=== PATIENT | male | born 1980 | race Hispanic/Latino ===

== ENCOUNTER 2017-08-20 14:21 | Emergency (ER) | payer SELFPAY ==
[2017-08-20] MEDS ORDERED: Ketorolac Tromethamine 30 MG/ML VIAL ONE (15:19)
[2017-08-20] MEDS ORDERED: Dexamethasone 4 mg/ml Vial ONE (15:19)
[2017-08-20] MEDS ORDERED: Ondansetron HCl/PF 4 MG/2 ML Vial ONE (15:19)
[2017-08-20 15:27] LABS: #Basophils 0.1 thou/uL (0.0-0.2); #Eosinphils 0.1 thou/uL (0.0-0.7); #Lymphocytes 2.6 thou/uL (1.20-3.40); #Monocytes 0.6 thou/uL (0.11-0.59); #Neutrophils 8.8 thou/uL (1.40-6.50); %Basophils 0.8 % (0.0-1.0); %Eosinophils 0.9 % (0.0-10.0); %Lymphocytes 21.1 % (21.0-51.0); %Monocytes 4.9 % (0.0-10.0); Hematocrit 47.4 % (42.0-52.0); Mean Platelet Volume 6.6 fL (7.4-10.4); White Blood Cell (WBC) Count 12.2 thou/uL (4.8-10.8)
[2017-08-20 15:48] LABS: ALT (SGPT) 41 U/L (8-55); AST (SGOT) 16 U/L (5-34); Alkaline Phosphatase 67 U/L (40-150); Anion Gap 15 mmol/L (10-20); BUN (Urea Nitrogen) 13 mg/dL (8.9-20.6); Bilirubin, Total 0.4 mg/dL (0.2-1.2); Calc. Creatinine Clearance 0 mL/min (70-130); Calcium 9.9 mg/dL (7.8-10.44); Carbon Dioxide 24 mmol/L (22-29); Chloride 104 mmol/L (98-107); Estimated GFR-MDRD Greater than 90; Globulin 2.9 g/dL (2.4-3.5)
== END 2017-08-20 16:52 | disposition home or self-care (01) ==
LOC: ERS 14:21
DX: M54.5 Low back pain (principal); G89.29 Other chronic pain; I10 Essential (primary) hypertension; M19.90 Unspecified osteoarthritis, unspecified site; F41.9 Anxiety disorder, unspecified; F17.200 Nicotine dependence, unspecified, uncomplicated
CPT/HCPCS: 80053; 85025; 85652; 86140; 96361; 96374; 96375; J1100; J1885; J2270; J2405

== ENCOUNTER 2017-08-23 08:14 | Emergency (ER) | payer SELFPAY ==
[2017-08-23] MEDS ORDERED: Dexamethasone 4 mg/ml Vial ONE (09:25)
[2017-08-23] MEDS ORDERED: Ketorolac Tromethamine 60 MG/2 ML VIAL ONE (09:25)
[2017-08-23] MEDS ORDERED: HYDROcodone/Acetaminophen 5/325 mg Tablet ONE (09:59)
== END 2017-08-23 10:28 | disposition home or self-care (01) ==
LOC: ERS 08:14
DX: G89.29 Other chronic pain (principal); M54.5 Low back pain; I10 Essential (primary) hypertension; M16.12 Unilateral primary osteoarthritis, left hip; F41.9 Anxiety disorder, unspecified; F17.200 Nicotine dependence, unspecified, uncomplicated; Z79.899 Other long term (current) drug therapy
CPT/HCPCS: 96372; J1100; J1885

== ENCOUNTER 2017-08-23 14:19 | Emergency (ER) | payer SELFPAY ==
[2017-08-23] MEDS ORDERED: Lorazepam 2 MG/ML VIAL ONE (14:24)
[2017-08-23] MEDS ORDERED: Lorazepam 1 MG TAB ONE (15:05)
== END 2017-08-23 15:04 | disposition home or self-care (01) ==
LOC: ERS 14:19
DX: F41.9 Anxiety disorder, unspecified (principal); I10 Essential (primary) hypertension; F17.200 Nicotine dependence, unspecified, uncomplicated
CPT/HCPCS: 93005; 96374; J2060

== ENCOUNTER 2017-08-25 01:27 | Observation (INO) | payer SELFPAY ==
[2017-08-25] MEDS ORDERED: Ketorolac Tromethamine 30 MG/ML VIAL ONE (02:44)
[2017-08-25] MEDS ORDERED: diphenhydrAMINE HCl 50 MG/ML 1 ML VIAL ONE (02:44)
[2017-08-25] MEDS ORDERED: Metoclopramide HCl 10 MG/2 ML VIAL ONE (02:44)
[2017-08-25] MEDS ORDERED: Magnesium Sulfate 2 GM/100 ML BAG ONE (04:39)
[2017-08-25] MEDS ORDERED: methylPREDNISolone Sod Succ/PF 125 MG/2 ML VIAL ONE (04:39)
[2017-08-25] MEDS ORDERED: Water For Inject, Bacteriostat 30 ML ONE (04:40)
--- NOTE | 2017-08-25 06:26 | CT ---
PRELIMINARY REPORT/[facility]/EMERGENCY AFTER HOURS PROCEDURE: EXAM: CT Head Without Intravenous Contrast EXAM DATE/TIME: 08/25/2017 3:33 AM CLINICAL HISTORY: 37 years old, male; Pain; Headache; Headache not specified; Patient HX: SHAH TECHNIQUE: Axial computed tomography images of the head/brain without intravenous contrast. COMPARISON: No relevant prior studies available. FINDINGS: Brain: Unremarkable. No hemorrhage. No significant white matter disease. No edema. Ventricles: Unremarkable. No ventriculomegaly. Bones/joints: Unremarkable. No acute fracture. Soft tissues: Unremarkable. Sinuses: Unremarkable as visualized. No acute sinusitis. Mastoid air cells: Unremarkable as visualized. No mastoid effusion. Other findings: Mild patient motion. IMPRESSION: No acute intracranial abnormality. Thank you for allowing us to participate in the care of your patient. Dictated and Authenticated by: Jabari Madrid MD 08/25/2017 3:40 AM Central Time ([place] \T\ [place]) FINAL REPORT ON OVERNIGHT [facility] STUDY: I agree with the preliminary report provided. No acute intracranial abnormality demonstrated. Exam ination compared to a prior dated 03/07/2015. POS: [facility]
[2017-08-25 06:51] LABS: #Basophils 0.1 thou/uL (0.0-0.2); #Eosinphils 0.1 thou/uL (0.0-0.7); #Monocytes 0.8 thou/uL (0.11-0.59); #Neutrophils 10.8 thou/uL (1.40-6.50); %Basophils 0.7 % (0.0-1.0); %Eosinophils 0.8 % (0.0-10.0); %Lymphocytes 20.3 % (21.0-51.0); %Monocytes 5.6 % (0.0-10.0); Hematocrit 38.5 % (42.0-52.0); Mean Platelet Volume 7.1 fL (7.4-10.4); Red Blood Cell (RBC) Count 3.98 mill/uL (4.70-6.10); White Blood Cell (WBC) Count 14.8 thou/uL (4.8-10.8)
[2017-08-25] MEDS ORDERED: Sodium Chloride 0.9% 100 ML ONE (07:12)
[2017-08-25] MEDS ORDERED: cefTRIAXone\\ROCEPHIN 2 GM VIAL ONE (07:12)
[2017-08-25 07:13] LABS: Anion Gap 12 mmol/L (10-20); BUN (Urea Nitrogen) 18 mg/dL (8.9-20.6); Calc. Creatinine Clearance 0 mL/min (70-130); Calcium 8.5 mg/dL (7.8-10.44); Carbon Dioxide 23 mmol/L (22-29); Chloride 109 mmol/L (98-107); Estimated GFR-MDRD Greater than 90
[2017-08-25] MEDS ORDERED: Acetaminophen 500 MG TAB ONE (07:13)
[2017-08-25] MEDS ORDERED: ADMIXTURE FEE IVPB SCH (07:15)
[2017-08-25] MEDS ORDERED: VALPROATE SODIUM IVPB SCH (07:15)
[2017-08-25] MEDS ORDERED: SODIUM CHLORIDE IVPB SCH (07:15)
[2017-08-25] MEDS ORDERED: Ketorolac Tromethamine 30 MG/ML VIAL IVP PRN (09:13)
[2017-08-25] MEDS ORDERED: Ondansetron HCl/PF 4 MG/2 ML Vial IVP PRN (09:13)
[2017-08-25] MEDS ORDERED: Ondansetron ODT 4 MG TAB PO PRN ×2 (09:13→09:29)
[2017-08-25] MEDS ORDERED: Acetaminophen 325 MG TAB PO PRN ×2 (09:14→09:29)
[2017-08-25] MEDS ORDERED: Sodium Chloride 0.9% 1,000 ML IV SCH ×2 (09:15→09:30)
[2017-08-25 09:18] VITALS: BMI 36.6
[2017-08-25] MEDS ORDERED: traMADol HCl 50 MG TAB PO PRN (09:23)
[2017-08-25] MEDS ORDERED: Ketorolac Tromethamine 60 MG/2 ML VIAL IM PRN (09:29)
[2017-08-25] MEDS ORDERED: Zolpidem Tartrate 5 MG TAB PO PRN (09:29)
--- NOTE | 2017-08-25 10:04 | HP ---
PRIMARY CARE PROVIDER: Dr. Boykin at [facility]. Referred to [facility] for headache after a negative LP and CT scan of the brain. He adache has been less than 24 hours. He describes it as severe nuchal to frontal, throbbing, no feve r, chills, sweats, no visual disturbance, etc. PAST MEDICAL HISTORY: Hypertension. MEDICATIONS: Lisinopril 10 mg a day and tramadol 50 mg p.o. q. 6 hours for chronic back pain. ALLERGIES: None. PAST SURGICAL HISTORY: Back surgery two and a half months ago. FAMILY HISTORY: Mother and father alive with diabetes and hypertension, both. SOCIAL HISTORY: , smokes 1-2 cigarettes a day, occasional alcohol, no illicit drugs. REVIEW OF SYSTEMS: General: No weight loss, fainting, dizziness. Vision: No double vision, blurr ed vision, flashing lights. Ears, nose, and throat: No ear pain or drainage. No nasal bleeding. No trouble swallowing. Cardiovascular: No chest pain, orthopnea, or paroxysmal nocturnal dyspnea. Respiratory: No cough, wheezing, or asthma. Gastrointestinal: No nausea, vomiting, diarrhea, or constipation. Genitourinary: No hematuria, dysuria, or nocturia. Musculoskeletal: No pain or swe lling in his legs. He has chronic back pain. Neurologic: No strokes, seizures, or focal weakness. Psychiatric: No anxiety/depression issues by history. Skin: No bruises, bleeding, or rash. Hem e/Lymph: No tender or swollen lymph nodes in the axilla, inguinal, or cervical area. PHYSICAL EXAMINATION: GENERAL: He is alert, in no acute distress. VITAL SIGNS: Blood pressure 148/94, pulse 79, respirations 18, temperature 98.7. HEENT: Examination of his head, eyes, ears, nose, and throat reveals pupils equal, round, and react nikhil to light. Extraocular movements intact. Sclerae white. Tympanic membranes clear. Nose clear. Throat is clear. Dental hygiene is good. NECK: Supple, without jugular venous distention, adenopathy, or thyromegaly. CHEST: Clear to auscultation and percussion. HEART: Regular rate and rhythm. First and second heart sounds are clear. There are no murmurs, no gallops. ABDOMEN: Soft, bowel sounds are normal. There is no hepatosplenomegaly, no mass, no rebound, no br uits. EXTREMITIES: Reveal no cyanosis, clubbing, or edema. PULSES: Carotid, radial, femoral, and dorsalis pedis pulses intact. SKIN: Warm and dry without bruises or rash. HEME/LYMPH: Reveals no tender or swollen lymph nodes in the axilla, inguinal, or cervical area. NEUROLOGICAL: Cranial nerves II-XII are intact. Deep tendon reflexes symmetric. Moves all extremi ties. REPORTS: CT scan of the brain, no acute intracranial abnormality, reviewed by me. LABORATORY DATA: White count 14.8, hemoglobin 12.9, platelet count 300,000. Chemistries, basic met abolic profile normal except for glucose 123, chloride 109. CSF was colorless, clear. 1 white cell , 1 red cell. CSF glucose 80, CSF protein 37. ADMITTING DIAGNOSES: 1. What appears to be a classic tension headache with no neurological findings, normal CT, normal l umbar puncture except for 1 red cell and a minimally elevated glucose. We will place in the hospita l for IM Toradol and antiemetics as needed. 2. Hypertension. Continue home medicines. 3. Chronic back pain (this is the patient's 13th visit to our emergency room this year).
[2017-08-25 11:25] VITALS: BP 141/87; TEMP 98.4
[2017-08-25] MEDS ORDERED: FLU VACC QS2017-18 36 mo. & older 0.5 ML SYRINGE IM ONE (12:00)
--- NOTE | 2017-08-25 20:34 | DIS ---
DATE OF ADMISSION: 08/25/2017 DATE OF DISCHARGE: 08/25/2017 PRIMARY CARE PROVIDER: Dr. Boykin at [facility]. DISCHARGE DISPOSITION: Discharged to home. FINAL DIAGNOSES: Tension headache, hypertension, chronic back pain. DISCHARGE MEDICATIONS: Aleve 220 t.i.d. for headache, lisinopril 10 mg a day to continue his chroni c pain medicine, tramadol 50 mg p.o. q.6 hours for his back pain. ALLERGIES: No known drug allergies. PENDING AT THE TIME OF DISCHARGE: Cultures have been done on his CSF; however, with otherwise conrado l CSF that expected to be normal. CODE STATUS: FULL. HOSPITAL COURSE: Patient admitted with a frontal nuchal headache of approximately 12 hours duration with no associated neurological symptoms, etc. [facility] which revealed no hemorrhage, etc. He had an LP, which essentially had 1 neutrophil and 1 red ce ll, and 1 neutrophil and no red cells in the other. Cultures were sent. He was given a large numbe r of medicines in the emergency room including valproate, magnesium sulfate, methylprednisone, morph ine, Toradol, diphenhydramine, metoclopramide. He states none this affected his headache. When I s aw him, he had totally normal neurological exam. His laboratory did reveal mildly elevated white co unt of 14.8 without a left shift, hemoglobin 12.9, platelet count 300. Chemistries unremarkable. I placed the patient in the hospital at the request of the ED. Ordered Toradol and antiemetics this afternoon. The patient who is in absolutely no distress whatsoever says he is not any better, but rubi thapa wants to go home. I have discussed things with him. He needs to followup with his local doctor i n 7 days. Aleve three times a day as needed for headache.
[2017-08-26] MEDS ORDERED: Lisinopril 10 MG TAB PO SCH (09:00)
== END 2017-08-25 14:33 | disposition home or self-care (01) ==
LOC: ERS 01:27 → 2SW 07:26
PROVIDERS: ADMIT Internal Medicine; ATTEND Internal Medicine
DX: G44.209 Tension-type headache, unspecified, not intractable (principal); I10 Essential (primary) hypertension; M54.9 Dorsalgia, unspecified; G89.29 Other chronic pain; F17.210 Nicotine dependence, cigarettes, uncomplicated; Z79.899 Other long term (current) drug therapy; Z98.890 Other specified postprocedural states; Z83.3 Family history of diabetes mellitus; Z82.49 Family history of ischemic heart disease and other diseases of the circulatory system
CPT/HCPCS: 36415; 62270; 70450; 80048; 82945; 84157; 85025; 85652; 86140; 87070; 87205; 89051; 96361; 96365; 96367; 96375; 96376; G0378; J0696; J1200; J1885; J2270; J2765; J2930; J3475; J7050

== ENCOUNTER 2017-09-05 02:12 | Inpatient (IN) | payer SELFPAY ==
[2017-09-05 02:36] LABS: #Basophils 0.1 thou/uL (0.0-0.2); #Eosinphils 0.6 thou/uL (0.0-0.7); #Lymphocytes 3.5 thou/uL (1.20-3.40); #Monocytes 0.7 thou/uL (0.11-0.59); #Neutrophils 11.2 thou/uL (1.40-6.50); %Basophils 0.7 % (0.0-1.0); %Eosinophils 3.6 % (0.0-10.0); %Lymphocytes 21.5 % (21.0-51.0); %Monocytes 4.6 % (0.0-10.0); Hematocrit 41.3 % (42.0-52.0); Mean Platelet Volume 6.4 fL (7.4-10.4); Red Blood Cell (RBC) Count 4.33 mill/uL (4.70-6.10); White Blood Cell (WBC) Count 16.2 thou/uL (4.8-10.8)
[2017-09-05] MEDS ORDERED: methylPREDNISolone Sod Succ/PF 125 MG/2 ML VIAL ONE (02:54)
[2017-09-05] MEDS ORDERED: Water For Inject, Bacteriostat 30 ML ONE (02:54)
[2017-09-05] MEDS ORDERED: Nitroglycerin 2% Ointment 1 INCH/1 GM Packet ONE (02:54)
[2017-09-05 03:05] LABS: Troponin I Less than 0.010 ng/mL (< 0.028)
[2017-09-05 03:08] LABS: ALT (SGPT) 51 U/L (8-55); AST (SGOT) 17 U/L (5-34); Alkaline Phosphatase 125 U/L (40-150); Anion Gap 15 mmol/L (10-20); BUN (Urea Nitrogen) 15 mg/dL (8.9-20.6); Bilirubin, Total 0.2 mg/dL (0.2-1.2); Calc. Creatinine Clearance 0 mL/min (70-130); Calcium 10.2 mg/dL (7.8-10.44); Carbon Dioxide 26 mmol/L (22-29); Chloride 101 mmol/L (98-107); Estimated GFR-MDRD Greater than 90; Globulin 3.4 g/dL (2.4-3.5); Protein, Total 7.2 g/dL (6.0-8.3)
[2017-09-05 03:24] LABS: Lactic Acid - Sepsis 3.2 mmol/L (0.5-2.2)
[2017-09-05 03:26] LABS: PTT 25.5 SEC (22.9-36.1); Prothrombin Time 12.2 SEC (12.0-14.7)
[2017-09-05 03:36] LABS: Oxyhemoglobin 75.1 % (94.0-97.0); Sodium 139 mmol/L (135-148)
[2017-09-05 03:40] LABS: Mode RA; Modified Allen's Test POSITIVE; Vent NO
[2017-09-05] MEDS ORDERED: Albuterol Sulfate 2.5 mg/3 ml Neb ONE (04:00)
[2017-09-05] MEDS ORDERED: Fentanyl 100 MCG/2 ML VIAL ONE (04:07)
[2017-09-05] MEDS ORDERED: Enoxaparin Sodium 100 MG/ML SYRINGE ONE (04:18)
[2017-09-05] MEDS ORDERED: Enoxaparin Sodium 80 MG/0.8 ML SYRINGE ONE (04:20)
[2017-09-05] MEDS ORDERED: Enoxaparin Sodium 30 MG/0.3 ML SYRINGE ONE (04:20)
[2017-09-05] MEDS ORDERED: Enoxaparin Sodium 120 MG/0.8 ML SYRINGE SC SCH (04:45)
[2017-09-05] MEDS ORDERED: Magnesium Sulfate 2 GM/100 ML BAG ONE (04:57)
[2017-09-05] MEDS ORDERED: Sodium Chloride For Inhalation 0.9% 3 ML NEB ONE (05:05)
[2017-09-05] MEDS ORDERED: Acetaminophen 650 MG Suppository PR PRN (05:20)
[2017-09-05] MEDS ORDERED: Acetaminophen 325 MG TAB PO PRN (05:20)
[2017-09-05] MEDS ORDERED: Nitroglycerin 0.4 MG TAB (25 Tab Bottle) PO PRN (05:20)
--- NOTE | 2017-09-05 06:23 | HP ---
PRIMARY CARE PROVIDER: Jillian Boykin MD CHIEF COMPLAINT: Shortness of breath. HISTORY OF PRESENT ILLNESS: Mr. Saucedo is a pleasant 37-year-old gentleman who was seen at [facility] on 07/06/2017. He was hospitalized at this facility on 08/25/2017, for headache. He reports that he was doing well following discharge until 2 nights ago. His woke him up and told him that he was wheezing. He has no history of wheezing. Yesterday night, he developed chest pain. He describes pain as over the left side of the chest, sharp, 9-10/10, on and off, no known ag gravating or relieving factors, accompanied by diaphoresis. He denies any nausea or vomiting. He r eports ongoing shortness of breath. He denies any orthopnea. He denies any paroxysmal nocturnal dy spnea. He does not note the shortness of breath is worse with exertion. REVIEW OF SYSTEMS: The following complete review of systems was negative, unless otherwise mentione d in the HPI or below: Constitutional: Weight loss or gain, sense of well-being, ability to conduct usual activities, exer cise tolerance. Skin/Breast: Rash, itching, changes in hair growth or loss, nail changes, breast lumps, tenderness, swelling, nipple discharge. Eyes: Vision, double vision, tearing, blind spots, pain. ENT/Mouth: Headaches (location, time of onset, duration, precipitating factors), vertigo, lighthead edness, injury. Vision, double vision, tearing, blind spots, pain, nose bleeding, colds, obstruction , discharge, dental difficulties, gingival bleeding, dentures, neck stiffness, pain, tenderness, mas ses in thyroid or other areas. Cardiovascular: Precordial pain, substernal distress, palpitations, syncope, dyspnea on exertion, o rthopnea, nocturnal paroxysmal dyspnea, edema, cyanosis, hypertension, heart murmurs, varicosities, phlebitis, claudication. Respiratory: Pain, shortness of breath, wheezing, stridor, cough, hemoptysis, fever or night sweats . Gastrointestinal: Poor appetite, dysphagia, indigestion, abdominal pain, heartburn, eructation, samia sea, vomiting, hematemesis, jaundice, constipation, or diarrhea, abnormal stools (mario-colored, kartik y, bloody, greasy, foul smelling), flatulence, hemorrhoids, recent changes in bowel habits. Genitourinary: Urgency, frequency, dysuria, nocturia, hematuria, polyuria, oliguria, unusual (or ch sheri in) color of urine, stones, hesitancy, change in size of stream, dribbling, acute retention or incontinence, libido, potency. Musculoskeletal: Pain, swelling, redness or heat of muscles or joints, limitation, of motion, muscu lar weakness, atrophy, cramps. Neurologic/Psychiatric: Convulsions, paralyses, tremor, incoordination, paresthesias, difficulties with memory of speech, sensory or motor disturbances, or muscular coordination (ataxia, tremor), emo tional problems, anxiety, depression, previous psychiatric care, unusual perceptions, hallucinations . Allergy/Immunologic: Skin rash, anemia, bleeding tendency, polydipsia, polyuria, intolerance to hea t or cold. PAST MEDICAL HISTORY: Significant for hypertension, chronic back pain, left hip arthritis. PAST SURGICAL HISTORY: Significant for back surgery. PSYCHIATRIC HISTORY: Significant for anxiety. FAMILY HISTORY: No family history of premature coronary artery disease. SOCIAL HISTORY: Patient drinks alcohol occasionally. He smokes 2 to 5 cigarettes a day. He denies any recreational drug use. ALLERGIES: No known drug allergies. CURRENT MEDICATIONS: Lisinopril 10 mg daily. PHYSICAL EXAMINATION: GENERAL: On examination, Mr. Saucedo is awake and alert, in moderate distress. He is diaphoretic. VITAL SIGNS: Blood pressure is 137/93, pulse is 99, he is breathing at rate of 21, and saturating 9 7% on 2 liters of oxygen. He is afebrile. He is obese. EYES: No scleral icterus. No conjunctival pallor. ENT: Moist mucosal membranes, no oropharyngeal erythema or exudates. NECK: Supple, nontender, normal range of movement. Trachea is midline. RESPIRATORY: He has expiratory wheeze in the upper lung zones. He has markedly diminished air entr y into both lung bases. CARDIOVASCULAR: S1 and S2 are heard, regular. Peripheral pulses are palpable. No pericardial rub, no carotid bruit. ABDOMEN: Soft, nontender, bowel sounds heard, no hepatomegaly, no splenomegaly. MUSCULOSKELETAL: He has reproducible tenderness over the left lower chest wall. Power is 5/5 in al l 4 extremities. NEUROLOGIC: Cranial nerves II through XII intact, deep tendon reflexes are 2+. SKIN: Multiple tattoos present. PSYCHIATRIC: Patient appears anxious, oriented to person, place, and time. LYMPHATIC: No cervical lymphadenopathy. LABORATORY DATA AND DIAGNOSTICS: Mr. Saucedo's labs and investigations were reviewed. I have review ed his electrocardiogram, which shows normal sinus rhythm, no ST changes to suggest an acute coronar y syndrome. I have also reviewed his chest x-ray, which does not show any pulmonary infiltrates. Luis thapa also had a CT angiogram of the chest, which was reportedly negative for pulmonary embolism. Labor atory investigations show leukocytosis with 16,200 white cells, of which 69.4% are neutrophils, macr ocytic anemia with hemoglobin 13.8, elevated platelet count of 432,000, last month platelet count 30 0,000. On 08/25/2017, INR 0.9. Elevated glucose of 338, otherwise unremarkable comprehensive metab olic profile, normal troponin I, BNP of 12.6, and elevated lactate of 3.2. ASSESSMENT AND PLAN: Mr. Saucedo is a pleasant 37-year-old gentleman who was seen at [facility] on 09/05/2017. His problem list includes: 1. Chest pain: Etiology is unclear. There is certainly a reproducible component to his pain. How ever, he reports that his pain is worse than what is being reproduced. He will be admitted to the [facility] with presumptive diagnosis of unstable angina. He has already received a dose of Lovenox, w e will continue him on aspirin and Lovenox at 1 mg/kg subcutaneously every 12 hours. We will request 2D echocardiogram and Cardiology Service consultation, we will monitor on telemetry. 2. Acute respiratory failure: The patient is in acute respiratory failure, etiology is unclear. Luis thapa does not have a history of asthma or chronic obstructive pulmonary disease, although he does smoke . He has received steroids and bronchodilators in the emergency room with slight relief. We will c ontinue him on oxygen, steroids, and bronchodilators for suspected reactive airways disease. I will consult Pulmonology Service for their opinion and help with management. 3. Hypertension: Monitor vital signs, titrate antihypertensives as needed. 4. Leukocytosis: The patient does not appear to have any signs of infection in the chest. We will check urine. He has been afebrile, we will hold off on antibiotics for now. 5. Tobacco abuse: Patient has been counseled regarding tobacco cessation. We will start him on ni cotine replacement therapy. Many thanks for allowing me to participate in your patient's care. Please feel free to contact me w ith any questions or concerns. LEVEL OF RISK: High. LEVEL OF COMPLEXITY: High.
[2017-09-05 06:25] LABS: Troponin I Less than 0.010 ng/mL (< 0.028)
[2017-09-05 06:43] VITALS: BMI 36.7
[2017-09-05 07:46] LABS: Bilirubin Negative (Negative); Blood, Urine Negative (Negative); Glucose, Urine (Dipstick) >=1000 mg/dL (Negative); Ketone, Urine Negative (Negative); Nitrite Negative (Negative); Protein, Urine (Dipstick) Negative (Neg-Trace); Urobilinogen 0.2 mg/dL (0.2-1.0)
[2017-09-05 07:54] LABS: Amphetamine Not Detected (NotDetected); Methadone Not Detected (NotDetected); Methamphetamine Not Detected (NotDetected)
[2017-09-05] MEDS: Nicotine 14 MG PATCH TD SCH (08:04)
[2017-09-05] MEDS: Aspirin 325 MG TAB PO SCH (08:36)
[2017-09-05] MEDS: Lisinopril 10 MG TAB PO SCH (08:36)
[2017-09-05] MEDS: Morphine Sulfate 2 MG/ML SYRINGE SLOW IVP PRN ×3 (08:37→21:00)
[2017-09-05 09:34] LABS: Troponin I Less than 0.010 ng/mL (< 0.028)
--- NOTE | 2017-09-05 09:36 | RAD ---
SINGLE VIEW OF CHEST: Date: 09/05/17 COMPARISON: 08/10/17. HISTORY: Chest pain and difficulty breathing. FINDINGS: Single view of the chest shows a normal sized cardiomediastinal silhouette. There is no evidence of consolidation, mass, or pleural effusion. The bones are unremarkable. IMPRESSION: No evidence of acute cardiopulmonary disease. POS: [facility]
[2017-09-05] MEDS: Ketorolac Tromethamine 30 MG/ML VIAL IVP SCH (10:36)
--- NOTE | 2017-09-05 13:21 | CT ---
PRELIMINARY REPORT/[facility]/EMERGENCY AFTER HOURS PROCEDURE: EXAM: CT Angiography Chest With Intravenous Contrast EXAM DATE/TIME: Exam ordered 09/05/2017 3:22 AM CLINICAL HISTORY: 37 years old, male; Pain; Chest pain; Type not specified; Patient HX: R/O pe TECHNIQUE: Axial computed tomographic angiography images of the chest with intravenous contrast using pulmonary embolism protocol. CONTRAST: 100 mL of ISOVUE administered intravenously. COMPARISON: No relevant prior studies available. FINDINGS: Pulmonary arteries: Bolus timing is insufficient for definitive exclusion of small peripheral pulmon zita emboli, however no large central pulmonary emboli are identified. Aorta: No acute findings. No thoracic aortic aneurysm. Lungs: Normal. No mass. No consolidation. Pleural space: Normal. No significant effusion. No pneumothorax. Heart: Normal. No cardiomegaly. No significant pericardial effusion. No evidence of RV dysfunction. Mediastinum: The trachea is normal. Thyroid: The thyroid gland is normal. Bones/joints: No acute fracture. No dislocation. Soft tissues: Normal. Lymph nodes: Normal. No enlarged lymph nodes. Upper abdomen: The visualized intra-abdominal structures are normal. IMPRESSION: Bolus timing is insufficient for definitive exclusion of small peripheral pulmonary emboli, however no large central pulmonary emboli are identified. Thank you for allowing us to participate in the care of your patient. Dictated and Authenticated by: Gordon Menchaca MD 09/05/2017 3:58 AM Central Time ([place] \T\ [place]) FINAL REPORT EMERGENCY AFTER HOURS CTA OF CHEST WITH CONTRAST: Date: 09/05/17 TECHNIQUE: Multiple contiguous axial images were obtained in a CTA of the chest with contrast per pulmonary emb olism protocol. 3D oblique MIP reformats and direct coronal reformats were performed. FINDINGS/IMPRESSION: I agree with the findings and impression given in the preliminary report per [facility] physician. This ex am is limited secondary to poor timing of the contrast bolus. No central pulmonary emboli are seen. POS: [facility]
--- NOTE | 2017-09-05 14:23 | CON ---
DATE OF CONSULTATION: 09/05/2017 REASON FOR CONSULTATION: Chest pain. REFERRING PROVIDER: Dr. Bowman. HISTORY OF PRESENT ILLNESS: Mr. Saucedo is a 29-year-old gentleman with past medical history of hype rtension who recently presented with chest pain. States that chest pain began several weeks ago and begin as intermittent pain. It then became constant over the last 2 days. The pain is sharp and w orse with deep breath. It is positional with worse on his left side. He also states again it is go ing to reproduce by pressing in his left lower chest region. His EKG is negative for significant dy srhythmias or EKG changes suggesting ischemia. PAST MEDICAL HISTORY: As above. ALLERGIES: None. PAST SURGICAL HISTORY: Back surgery. SOCIAL HISTORY: Positive tobacco, positive alcohol use. MEDICATION: Lisinopril. REVIEW OF SYSTEMS: Ten-point review of systems is reviewed and is as above, negative. GENERAL: Negative fatigue, weakness, weight loss, fevers or chills. HEENT: Eyes: Negative blurry vision, double vision, loss of vision. Negative tinnitus, hearing loss , sore throat, bloody nose or drainage. PULMONARY: Negative shortness of breath, dyspnea on exertion, cough or congestion. CARDIOVASCULAR: Negative history of heart murmur, PND, orthopnea, fluttering or palpitations. GASTROINTESTINAL: Negative constipation, diarrhea, melena, hematochezia or abdominal pain. GENITOURINARY: Negative dysuria, polyuria, hematuria, difficulty starting/stopping flow. MUSCULOSKELETAL: Negative muscle aches/pains, joint pain, joint swelling. PVD: Negative claudication, calf or buttock pain, hair loss on limbs. NEUROLOGIC: Negative lightheadedness, dizziness, syncope, loss of sensation. PSYCHIATRIC: Negative depression, anxiety, panic attacks, or paranoia. ENDOCRINE: Negative hair loss, coarse skin or temperature intolerance. PHYSICAL EXAMINATION: VITAL SIGNS: Blood pressure 151/101, pulse 94, temperature 98.2. REVIEW OF SYSTEMS: GENERAL: Negative fatigue, weakness, weight loss, fevers or chills. HEENT: Eyes: Negative blurry vision, double vision, loss of vision. Negative tinnitus, hearing los s, sore throat, bloody nose or drainage. PULMONARY: Positive wheezing. CHEST: Positive pain to palpation noted to the left lower chest region. GASTROINTESTINAL: Negative constipation, diarrhea, melena, hematochezia or abdominal pain. GENITOURINARY: Negative dysuria, polyuria, hematuria, difficulty starting/stopping flow. MUSCULOSKELETAL: Negative muscle aches/pains, joint pain, joint swelling. PVD: Negative claudication, calf or buttock pain, hair loss on limbs. NEUROLOGIC: Negative lightheadedness, dizziness, syncope, loss of sensation. PSYCHIATRIC: Negative depression, anxiety, panic attacks, or paranoia. ENDOCRINE: Negative hair loss, coarse skin or temperature intolerance. PERTINENT LABORATORY DATA: Hemoglobin 13.8, CK and troponin negative. Creatinine 0.88. IMPRESSION: 1. Chest pain. 2. ? asthma. RECOMMENDATIONS: On asthma per Dr. Billings. Patient's symptoms from a cardiac standpoint appear po sitional and reproducible. This likely is secondary to musculoskeletal discomfort. He has been giv en one dose of Toradol. He states the only thing that improved his symptom is morphine. Would weston mmend nonsteroidal therapy. May consider a steroid Dosepak. We will review his echo for LV functio n if his LVEF is normal. His LVEF is normal with no significant issues. Would therefore recommend discontinuing home on a nonsteroidal therapy and PPI. If he needs to stay further per the primary t eam, would then recommend medical floor.
[2017-09-05] MEDS: Enoxaparin Sodium 120 MG/0.8 ML SYRINGE SC SCH (19:20)
--- NOTE | 2017-09-05 19:36 | CON ---
DATE OF CONSULTATION: 09/05/2017 SERVICE: Pulmonary Medicine. HISTORY OF PRESENT ILLNESS: Patient is a 37-year-old male with past medical history signif icant for hypertension and chronic pain who presented to the emergency department with some degree o f expiratory wheezing. He developed a little bit of chest discomfort. This is extraordinarily caron p sensation over the left side of his chest and it radiates into the right area, and around the lowe r part of the PEG. This is a severe pain that is exacerbated by a little bit of deep breathing. Pa lpation also makes it worse. There is no significant worsening in this discomfort associated with w alking. He denies any nausea, vomiting, diarrhea, shortness of breath, dyspnea on exertion. He did have a little bit of expiratory wheezing. This is new for him. Otherwise, he is in his usual stat e of health. He has had multiple presentations to the emergency department for different types of p ain related issues. PAST MEDICAL HISTORY: 1. Hypertension. 2. Chronic back pain. 3. Arthritis of the left hip. PAST SURGICAL HISTORY: Back surgery. SOCIAL HISTORY: He drinks alcohol occasionally. He smokes 1/4 pack on a daily basis and has a roug hly 5-10 pack year history of smoking. He denies any recreational drug use. He has no exposure to chemicals, asbestos or tuberculosis. FAMILY HISTORY: Noncontributory. ALLERGIES: No known drug allergies. MEDICATIONS: List of his inpatient medications was reviewed. No specific updates were made at this time. REVIEW OF SYSTEMS: General, head, ears, eyes, nose, throat, cardiovascular, respiratory, GI, , mus culoskeletal, neurologic and skin is negative except as mentioned in the HPI. PHYSICAL EXAMINATION: VITAL SIGNS: Afebrile, pulse 91, blood pressure 167/107, respirations 20, saturation 95% on 2 liter s nasal cannula. GENERAL: The patient is awake, alert, in no apparent distress. LUNGS: Decent air entry. There is no prolonged expiratory phase. There is a monophonic wheeze mildred t is identified. This is extraordinarily loud when placed over the larynx. It is only present on e xhalation. Throughout the rest of the lungs, there is that exact same tone and heeze heard througho ut. HEART: Normal rate. Regular. ABDOMEN: Soft, nontender, nondistended. Bowel sounds are positive. MUSCULOSKELETAL: No cyanosis or clubbing. There is no pitting in the bilateral lower extremities. NEUROLOGIC: Grossly nonfocal. LABORATORY DATA: WBC 16.2, hemoglobin 13.8, platelets 432,000. The differential is essentially nor mal. Absolute neutrophil count is elevated as is the lymphocyte and monocyte count. INR 0.9. PH 7 .43, pCO2 of 41, pO2 is 39, but my suspicion is that this likely represents a VBG. Glucose is 338. Lactic acid 3.2. Basic metabolic profile and liver function studies are otherwise unremarkable. C ardiac enzymes are negative x3. BNP is 12.6. Urinalysis is positive for glycosuria, but otherwise unremarkable. Urine drug screen is normal. IMAGING: Chest x-ray demonstrates no evidence of acute cardiopulmonary abnormality. There is a hig h riding right-sided hemidiaphragm with low lung volumes on the right. CTA of the chest demonstrate s no parenchymal abnormality of the lung. There is poor timing of the contrast bolus. As such, darnell ar evaluation of the pulmonary arteries is difficult, but I do not see any obvious filling deficit. The aorta is normal in caliber and size. There does not look to be any obvious dissection. I do n ot see any obvious chest wall abnormality in the area of concern. Official read is currently pendin g. ASSESSMENT: 1. Noncardiac chest pain. 2. Type 2 diabetes mellitus. 3. Systemic inflammatory response syndrome with no obvious evidence of infection. PLAN: Blood and urine cultures are currently pending. We will trend his CBC and basic metabolic pr ofile. At this point, I do not have clear reason for him to have this discomfort. Echocardiogram a nd Cardiology consultation are currently pending. Pulmonary Critical Care will continue to follow juan jose sánchez the patient remains in this location. He has already gotten full dose anticoagulation as well as aspirin therapy. The wheezing is transmitted breath sounds from the voice box and does not requi re therapy with nebulized medications.
[2017-09-05] MEDS ORDERED: FLU VACC QS2017-18 36 mo. & older 0.5 ML SYRINGE IM ONE (21:00)
[2017-09-06] MEDS: Ketorolac Tromethamine 30 MG/ML VIAL IVP SCH (00:06)
[2017-09-06] MEDS: Morphine Sulfate 2 MG/ML SYRINGE SLOW IVP PRN (03:58)
[2017-09-06 04:14] LABS: #Basophils 0.1 thou/uL (0.0-0.2); #Eosinphils 0.1 thou/uL (0.0-0.7); #Monocytes 0.9 thou/uL (0.11-0.59); #Neutrophils 13.7 thou/uL (1.40-6.50); %Basophils 0.4 % (0.0-1.0); %Eosinophils 0.4 % (0.0-10.0); %Monocytes 5.3 % (0.0-10.0); Hematocrit 38.5 % (42.0-52.0); Mean Platelet Volume 6.8 fL (7.4-10.4); Red Blood Cell (RBC) Count 3.96 mill/uL (4.70-6.10); White Blood Cell (WBC) Count 17.8 thou/uL (4.8-10.8)
[2017-09-06 04:34] LABS: Anion Gap 13 mmol/L (10-20); BUN (Urea Nitrogen) 14 mg/dL (8.9-20.6); Calc. Creatinine Clearance 229 mL/min (70-130); Calcium 9.2 mg/dL (7.8-10.44); Carbon Dioxide 27 mmol/L (22-29); Chloride 103 mmol/L (98-107); Estimated GFR-MDRD Greater than 90
[2017-09-06] MEDS: Nicotine 14 MG PATCH TD SCH (05:58)
[2017-09-06] MEDS: Enoxaparin Sodium 120 MG/0.8 ML SYRINGE SC SCH (06:00)
[2017-09-06] MEDS ORDERED: Insulin Regular 300 UNITS/3 ML VIAL SC PRN ×2 (07:08)
[2017-09-06] MEDS ORDERED: Dextrose 50% Abboject 50 ML SYRINGE SLOW IVP PRN (07:08)
[2017-09-06] MEDS ORDERED: Dextrose 5% in Water 1,000 ML IV PRN (07:08)
[2017-09-06] MEDS ORDERED: Ondansetron HCl/PF 4 MG/2 ML Vial IVP PRN (07:09)
[2017-09-06] MEDS ORDERED: Senokot 8.6 MG TAB PO PRN (07:09)
[2017-09-06 07:35] LABS: Hemoglobin A1c 6.7 % (4.0-6.0)
[2017-09-06 07:50] LABS: Magnesium 2.1 mg/dL (1.6-2.6); Phosphorus 3.7 mg/dL (2.3-4.7)
[2017-09-06] MEDS: Lisinopril 10 MG TAB PO SCH (08:10)
[2017-09-06] MEDS: Aspirin 325 MG TAB PO SCH (08:11)
[2017-09-06] MEDS: Ketorolac Tromethamine 30 MG/ML VIAL IVP PRN ×2 (08:50→16:59)
[2017-09-06] MEDS ORDERED: Famotidine 20 MG TAB PO SCH (09:00)
[2017-09-06] MEDS: traMADol HCl 50 MG TAB PO PRN ×3 (09:32→17:01)
[2017-09-06 10:05] VITALS: TEMP 98
--- NOTE | 2017-09-06 12:51 | PRG ---
DATE OF SERVICE: 09/06/2017 SERVICE: Pulmonary Medicine INTERVAL HISTORY: The patient is doing fine from a cardiovascular and respiratory standpoint. He d enies current shortness of breath, fevers, chills, nausea or vomiting. He continues to have that sh kelle episodic chest discomfort which is persistent with that intermittent exacerbations. Otherwise, there has been no interval change to his condition. PHYSICAL EXAMINATION: VITAL SIGNS: Afebrile, pulse 81, blood pressure 135/93, respirations 16, saturation 99% on room air . GENERAL: The patient is awake, alert, no apparent distress. LUNGS: Excellent air entry. No prolonged expiratory phase, wheezing, rhonchi or crackles. HEART: Normal rate, regular. ABDOMEN: Soft, nontender, nondistended. Bowel sounds positive. MUSCULOSKELETAL: No cyanosis or clubbing. No pitting in the bilateral lower extremities. NEUROLOGIC: Grossly nonfocal. LABORATORY DATA: WBC 17.8 and stable, hemoglobin 13.0, platelets 379,000. Neutrophil count is 77%, lymphocytes are dropping to 17%. Hemoglobin A1c 6.7, lactate has cleared to 1.6 and CRP is elevate d at 2.4. Basic metabolic profile is otherwise unremarkable. Blood cultures x2 and urine culture a re negative to date. ASSESSMENT: 1. Noncardiac chest pain. 2. Type 2 diabetes mellitus. 3. Systemic inflammatory response syndrome with no obvious evidence of infection. PLAN: The leukocytosis persists. This will need to be investigated on in or outpatient basis. The patient has no ongoing requirements for an inpatient Pulmonary Critical Care opinion. I will provi de him with a Lidoderm patch to see if this provides him with any local relief. If his condition de teriorates, please give me a phone call.
[2017-09-06] MEDS ORDERED: cloNIDine HCl 0.1 MG TAB PO SCH (17:45)
[2017-09-06 18:02] VITALS: BP 176/108
--- NOTE | 2017-09-06 18:54 | CON ---
DATE OF CONSULTATION: 09/06/2017 REASON FOR CONSULTATION: Neutrophilia. HISTORY OF PRESENT ILLNESS: A 37-year-old patient who has a history of hypertension and new onset o f labored breathing while sleeping, associated with wheezing. This occurred 2 days prior to admissi on, the first time the decided to lend her own inhaler to the patient who used it and got somew hat better. The next night, he developed recurrence of symptoms. This time they brought him to the emergency room. He did not have any reported fever, had some diaphoresis. No headaches, visual sy mptoms, sore throat, odynophagia, dysphagia. A little bit of chest pain in the anterior location, r adiating from the midsternal area towards the left nipple, sort of atypical and clearly related to d eep breathing. No abdominal pain, no diarrhea, no genitourinary symptoms, no joint symptoms. No ne urological symptoms. PAST MEDICAL HISTORY: Obesity, hypertension, lower back pain with prior laminectomy done by Dr. Luis Antonio Samano in [facility] and degenerative arthritis in the hips. PAST SURGICAL HISTORY: Laminectomy. FAMILY HISTORY: Noncontributory. SOCIAL HISTORY: He is unemployed and last time he worked was in October last year. 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 Still smoking about 2-10 cig arettes per day. No recreational drug use. ALLERGIES: None. MEDICATIONS: Receiving currently Tylenol, DuoNeb, Lovenox, insulin, Toradol, lisinopril, Nitrostat, tramadol. PHYSICAL EXAMINATION: VITAL SIGNS: Patient has been afebrile during the hospital stay. BP 130/90, pulse 81, respirations 18, O2 sat 97% on room air. He appears in no distress. SKIN: Normal, no lymphadenopathy. HEENT: Ocular movements are conjugate. Sclerae white. Oral cavity normal. Numerous teeth in plac e, fairly decent shape. NECK: Supple, no jugular distention, no thyromegaly. LUNGS: With symmetric clear breath sounds. HEART: S1, S2, regular rate. No S3 or S4. ABDOMEN: Soft, not distended or tender. No ascites. No bladder distention. GENITOURINARY: No genital abnormalities. EXTREMITIES: Pulses are 1+ in popliteal and dorsalis pedis. No edema. NEUROLOGIC: Plantar responses are flexor. Strength in all extremities is preserved. Cognitive fun ction appears to be intact. LABORATORY DATA: The white cell count is 16,000, up to 17.8, hemoglobin 13, platelets 379 and neutr ophils 77%. Total neutrophil count 13.7, INR 0.9, pH 7.4, pCO2 41, pO2 39, this is a venous sample. Chemistry with fairly unremarkable except for hyperglycemia. The patient was not aware that he aguirre s diabetes. CRP 2.4. Liver profile normal. Albumin 3.8. Troponin has been normal. BNP 12.6. Ur inalysis with greater than 1000 glucose. Toxicology was negative. Beta hydroxybutyrate 0.06. The patient had Pulmonary and Cardiology consultation and the impression was asthma. He did not fee l that there was any indication for further cardiological evaluation. Echo was fairly normal. CT a ngio without evidence of pulmonary embolism. ASSESSMENT: Wheezing bronchospasm with nighttime dyspnea. Normal cardiac evaluation and neutrophil ia. DISCUSSION: The most likely scenario here is hyperadrenergic response due to the pulmonary decompen sation with bronchospasm. Possibility of endocrinological causes including carcinoid, hyperthyroidi sm and hypercortisolism will be evaluated, no evidence to suggest an infectious process at this time .
--- NOTE | 2017-09-06 19:12 | DIS ---
DATE OF DISCHARGE: 09/06/2017 DISCHARGE DISPOSITION: Home. FOLLOWUP: 1. Follow up with primary care physician Dr. Boykin at [facility]. 2. Follow up with Dr. Salazar, Cardiology and Pulmonary, Dr. Billings as needed. ALLERGIES: No known drug allergies. DISCHARGE MEDICATIONS: 1. Clonidine as needed for elevated blood pressure more than 180. 2. Glipizide 5 mg daily (new medication). 3. Lisinopril 10 mg daily. 4. Pepcid 20 mg b.i.d. for next 2 weeks. 5. Tylenol as needed. INPATIENT CONSULTANTS: 1. Cardiology, Dr. Salazar. 2. Pulmonary, Dr. Billings. The patient was seen and examined on the day of discharge. He denies any new complaints, no chest p ain, shortness of breath or palpitations. The patient is ambulating in the hallway. He was licensed professional counselor ed by the dietitian as well. BRIEF HOSPITAL COURSE: The patient is a 37-year-old male with hypertension, who [facility] with shortness of breath. Please refer to the history and physical for further details. The patient was admitted to the hospital with the diagnosis of chest pain of unclear etiology. Seri al cardiac enzymes were normal. An echocardiogram showed left ventricular ejection fraction of 55% to 60% with mild mitral and tricuspid regurgitation. The patient was seen by Cardiology, Dr. Estevan patel. Per Cardiology, his chest pain is probably musculoskeletal discomfort. He received Toradol. On admission, patient also complained of some shortness of breath along with expiratory wheezing. H is O2 sat were in the normal range. His symptoms gradually improved without any nebulizer treatment s. On admission, patient had WBC of 16.2 without left shift along with lactic acid of 3.2. This was pr obably secondary to dehydration from hyperglycemia. He was diagnosed with new onset diabetes. He h as been counseled on diabetes. He was also evaluated by Infectious Disease, Dr. Stafford. SIGNIFICANT LABORATORY DATA: 1. Hemoglobin A1c 6.7. 2. Lactic acid on admission 3.2, at discharge 1.6. 3. Blood cultures and urine cultures have been negative. 4. CT angiogram of the chest on admission was negative for pulmonary embolism. 5. Echocardiogram as discussed above. FINAL DIAGNOSES: 1. Noncardiac chest pain. 2. Shortness of breath with wheezing of unclear etiology. 3. New diagnosis of diabetes mellitus type 2, started on Glipizide. 4. Systemic inflammatory response syndrome without any obvious evidence of infection. 5. Hypertension. 6. Chronic back pain. 7. Obesity with a BMI of 36.8. 8. Chronic anemia, macrocytic. 9. Dehydration, probably secondary to polyuria from diabetes. Plan of care was discussed with the patient. He stated understanding.
[2017-09-06] MEDS ORDERED: Enoxaparin Sodium 40 MG/0.4 ML SYRINGE SC SCH (21:00)
[2017-09-07] MEDS ORDERED: Lidocaine 5% Patch TD SCH (09:00)
[2017-09-07] MEDS ORDERED: Lidocaine Patch Removal TOP SCH (21:00)
== END 2017-09-06 18:27 | disposition home or self-care (01) | DRG 313 ==
LOC: ERS 02:12 → IMCU/EMU 06:30 → ONC 19:38
PROVIDERS: ADMIT Internal Medicine; ATTEND Internal Medicine
DX: R07.89 Other chest pain (principal); R65.10 Systemic inflammatory response syndrome (SIRS) of non-infectious origin without acute organ dysfunction; I10 Essential (primary) hypertension; E86.0 Dehydration; D72.829 Elevated white blood cell count, unspecified; E66.9 Obesity, unspecified; D53.9 Nutritional anemia, unspecified; M54.9 Dorsalgia, unspecified; G89.29 Other chronic pain; E11.65 Type 2 diabetes mellitus with hyperglycemia; F17.210 Nicotine dependence, cigarettes, uncomplicated; Z68.36 Body mass index [BMI] 36.0-36.9, adult; Z79.899 Other long term (current) drug therapy
CPT/HCPCS: 36415; 36416; 71010; 71275; 80048; 80053; 80306; 81003; 82010; 82553; 82805; 83036; 83605; 83735; 83880; 84100; 84443; 84484; 85025; 85610; 85730; 86140; 87040; 87086; 90471; 90682; 93005; 93306; 94640; 94760; 96361; 96365; 96367; 96372; 96375; A4216; G0008; J1650; J1885; J1956; J2270; J2930; J3010; J3475; J7611; J7620; Q2036

== ENCOUNTER 2017-09-10 03:29 | Emergency (ER) | payer SELFPAY ==
[2017-09-10] MEDS ORDERED: HYDROcodone/Acetaminophen 10/325 mg Tablet ONE (04:05)
[2017-09-10] MEDS ORDERED: Diazepam 5 MG TAB ONE (04:05)
== END 2017-09-10 04:28 | disposition home or self-care (01) ==
LOC: ERS 03:29
DX: M54.5 Low back pain (principal); I10 Essential (primary) hypertension; M16.12 Unilateral primary osteoarthritis, left hip; F41.9 Anxiety disorder, unspecified; F17.210 Nicotine dependence, cigarettes, uncomplicated; Z79.899 Other long term (current) drug therapy
CPT/HCPCS: 99283

== ENCOUNTER 2017-09-12 07:24 | Observation (INO) | payer SELFPAY ==
[~2017-09-12 07:24] MED LIST: ADENOSINE 60 MG/20 ML VIAL ONE
[2017-09-12 08:10] LABS: #Basophils 0.1 thou/uL (0.0-0.2); #Eosinphils 0.1 thou/uL (0.0-0.7); #Lymphocytes 3.8 thou/uL (1.20-3.40); #Monocytes 0.7 thou/uL (0.11-0.59); #Neutrophils 6.8 thou/uL (1.40-6.50); %Basophils 0.7 % (0.0-1.0); %Eosinophils 1.2 % (0.0-10.0); %Monocytes 5.9 % (0.0-10.0); Hematocrit 45.3 % (42.0-52.0); Mean Platelet Volume 6.7 fL (7.4-10.4); Red Blood Cell (RBC) Count 4.77 mill/uL (4.70-6.10); White Blood Cell (WBC) Count 11.5 thou/uL (4.8-10.8)
[2017-09-12 08:28] LABS: ALT (SGPT) 31 U/L (8-55); AST (SGOT) 14 U/L (5-34); Alkaline Phosphatase 85 U/L (40-150); Anion Gap 16 mmol/L (10-20); BUN (Urea Nitrogen) 15 mg/dL (8.9-20.6); Bilirubin, Total 0.4 mg/dL (0.2-1.2); CK (CPK) 37 U/L (30-200); Calc. Creatinine Clearance 0 mL/min (70-130); Calcium 9.8 mg/dL (7.8-10.44); Carbon Dioxide 23 mmol/L (22-29); Chloride 106 mmol/L (98-107); Estimated GFR-MDRD Greater than 90; Globulin 3.5 g/dL (2.4-3.5); Lipase 10 U/L (8-78); Protein, Total 7.6 g/dL (6.0-8.3)
[2017-09-12 08:32] LABS: Troponin I Less than 0.010 ng/mL (< 0.028)
--- NOTE | 2017-09-12 09:12 | RAD ---
CHEST 1 VIEW: HISTORY: Chest pain. COMPARISON: Chest 1 view 09/06/17. FINDINGS: Lungs are hypoinflated. No pneumothorax or effusion. Cardiac silhouette and mediastinal contour is similar. IMPRESSION: No acute intrathoracic abnormality. No significant change. POS: [facility]
[2017-09-12] MEDS ORDERED: Nitroglycerin 2% Ointment 1 INCH/1 GM Packet ONE (09:19)
[2017-09-12] MEDS ORDERED: Morphine 2 MG/ML SYRINGE ONE (09:39)
[2017-09-12] MEDS ORDERED: Nitroglycerin 0.4 MG TAB (25 Tab Bottle) PO PRN (09:46)
[2017-09-12] MEDS ORDERED: Acetaminophen 325 MG TAB PO PRN (09:46)
[2017-09-12] MEDS ORDERED: HumaLOG 300 UNITS/3 ML VIAL SC PRN (09:50)
[2017-09-12] MEDS ORDERED: Dextrose 5% in Water 1,000 ML IV PRN (09:50)
[2017-09-12] MEDS ORDERED: Dextrose 50% Abboject 50 ML SYRINGE SLOW IVP PRN (09:50)
[2017-09-12] MEDS ORDERED: Nicotine 14 MG PATCH TD SCH (10:00)
--- NOTE | 2017-09-12 10:42 | HP ---
PRIMARY CARE PHYSICIAN: Jillian Boykin M.D. CHIEF COMPLAINT: Chest pain. HISTORY OF PRESENT ILLNESS: Mr. Saucedo is a pleasant 37-year-old gentleman who was seen at [facility] on 09/12/2017. He was admitted to this facility from 09/05/2017- 7 of this year for chest pain, which was deemed to be noncardiac. He reports that he did not have a ny chest pain at the time of discharge. He reports feeling well until today morning. Today morning , he woke up with right-sided chest pain. He reports that it was constant, sharp, 10/10. No known aggravating or relieving factors, accompanied by diaphoresis. He also reports vomiting once. He al so reports that the pain has now migrated to his right upper quadrant and continues to be in the adi st as well. He denies any cough, fevers or chills. The following complete review of systems was negative, unless otherwise mentioned in the HPI or belo w: Constitutional: Weight loss or gain, sense of well-being, ability to conduct usual activities, exer cise tolerance. Skin/Breast: Rash, itching, changes in hair growth or loss, nail changes, breast lumps, tenderness, swelling, nipple discharge. Eyes: Vision, double vision, tearing, blind spots, pain. ENT/Mouth: Headaches (location, time of onset, duration, precipitating factors), vertigo, lighthead edness, injury. Vision, double vision, tearing, blind spots, pain, nose bleeding, colds, obstruction , discharge, dental difficulties, gingival bleeding, dentures, neck stiffness, pain, tenderness, mas ses in thyroid or other areas. Cardiovascular: Precordial pain, substernal distress, palpitations, syncope, dyspnea on exertion, o rthopnea, nocturnal paroxysmal dyspnea, edema, cyanosis, hypertension, heart murmurs, varicosities, phlebitis, claudication. Respiratory: Pain, shortness of breath, wheezing, stridor, cough, hemoptysis, fever or night sweats . Gastrointestinal: Poor appetite, dysphagia, indigestion, abdominal pain, heartburn, eructation, samia sea, vomiting, hematemesis, jaundice, constipation, or diarrhea, abnormal stools (mario-colored, kartik y, bloody, greasy, foul smelling), flatulence, hemorrhoids, recent changes in bowel habits. Genitourinary: Urgency, frequency, dysuria, nocturia, hematuria, polyuria, oliguria, unusual (or ch sheri in) color of urine, stones, hesitancy, change in size of stream, dribbling, acute retention or incontinence, libido, potency. Musculoskeletal: Pain, swelling, redness or heat of muscles or joints, limitation, of motion, muscu lar weakness, atrophy, cramps. Neurologic/Psychiatric: Convulsions, paralyses, tremor, incoordination, paraesthesias, difficulties with memory of speech, sensory or motor disturbances, or muscular coordination (ataxia, tremor), em otional problems, anxiety, depression, previous psychiatric care, unusual perceptions, hallucination s. Allergy/Immunologic: Skin rash, anemia, bleeding tendency, polydipsia, polyuria, intolerance to hea t or cold. PAST MEDICAL HISTORY: Significant for diabetes mellitus diagnosed during last hospitalization, hype rtension, chronic back pain, left hip arthritis, left ventricle ejection fraction of 55%-60% on 08/22. CT angiogram of the chest which did not reveal any central pulmonary embolism on 09/05/2017 . PAST SURGICAL HISTORY: Significant for back surgery. PSYCHIATRIC HISTORY: Significant for anxiety. FAMILY HISTORY: No family history of premature coronary artery disease. SOCIAL HISTORY: The patient drinks alcohol occasionally, denies recreational drug use. Smokes 2-5 cigarettes a day. ALLERGIES: No known drug allergies. CURRENT MEDICATIONS: Amlodipine 5 mg daily and glipizide 5 mg daily. PHYSICAL EXAMINATION: GENERAL: On examination, Mr. Saucedo is awake and alert, not in acute distress. VITAL SIGNS: Blood pressure is 136/80, pulse is 91, his breathing at rate of 19 and saturating 97% on room air. He is afebrile. He is obese. EYES: No scleral icterus. No conjunctival pallor. ENT: Moist mucosal membranes, no oropharyngeal erythema or exudates. NECK: Supple, nontender, normal range of movement, trachea is midline. RESPIRATORY: Accessory muscles of breathing are not active. Chest wall movements are symmetric endy aterally. LUNGS: Clear to auscultation without wheeze, rhonchi or crepitations. CARDIOVASCULAR: S1 and S2 are heard, regular. LUNGS: Peripheral pulses are palpable. No carotid bruit, no pericardial rub. ABDOMEN: Soft, mild right upper quadrant tenderness, no guarding or rigidity, bowel sounds are hear d, no hepatomegaly, no splenomegaly. NEUROLOGIC: Cranial nerves II-XII intact. Deep tendon reflexes are 2+. MUSCULOSKELETAL: Power is 5/5 in all 4 extremities. He has reproducible tenderness over the right chest wall. LYMPHATIC: No cervical lymphadenopathy. SKIN: No rashes or subcutaneous nodules. PSYCHIATRIC: The patient appears anxious, oriented to person, place, and time. IMAGING AND LABORATORY DATA: Mr. Saucedo's labs and investigations were reviewed. I reviewed his el ectrocardiogram, which shows normal sinus rhythm, no ST changes to suggest an acute coronary syndrom e. I also reviewed his chest x-ray, which does not show any pulmonary infiltrates. Laboratory inve stigation show leukocytosis with 11,500 white cells, of which 59.3% are neutrophils, normal hemoglob in, elevated platelet count of 551,000, last known platelet count 379,000 on 09/06/2017, unremarkabl e comprehensive metabolic profile and normal troponin I. Lipase is normal. ASSESSMENT AND PLAN: Mr. Saucedo is a pleasant 37-year-old gentleman who was seen at [facility] on 09/12/2017. His problem list includes: 1. Chest pain: Etiology unclear, at least a component of musculoskeletal pain. However, given his cardiac risk factors, we will need to rule out ischemic heart disease as a cause of his chest pain. We will check stress test. D-dimer is pending. Will repeat cardiac enzymes and monitor on teleme try observation status. 2. Abdominal pain: Patient has right upper quadrant pain. Liver function tests are normal. Daryl y sign is negative. We will obtain right upper quadrant ultrasound to evaluate any hepatobiliary pa thology. 3. Diabetes mellitus: Continue home medications, start insulin sliding scale. 4. Hypertension: Continue home medications, monitor vital signs and titrate antihypertensives as n eeded. 5. Tobacco use: The patient has been counseled regarding tobacco cessation. Start nicotine replac ement therapy. 6. Thrombocythemia: Etiology unclear. He appears to have had at least one episode of thrombocythe bina in the past. I will recheck platelet count in the morning. Many thanks for allowing me to participate in your patient's care. Please feel free to contact me w ith any questions or concerns. LEVEL OF RISK: High. LEVEL OF COMPLEXITY: High.
[2017-09-12] MEDS: Morphine 2 MG/ML SYRINGE SLOW IVP PRN ×3 (11:27→21:27)
[2017-09-12 11:39] VITALS: BMI 35.0
[2017-09-12 11:47] LABS: Troponin I Less than 0.010 ng/mL (< 0.028)
--- NOTE | 2017-09-12 11:49 | ULT ---
ULTRASOUND ABDOMEN: HISTORY: Right upper quadrant pain. COMPARISON: None. FINDINGS: Real-time, shabazz scale, color Doppler, and spectral analysis of the abdomen was performed with a curv ilinear transducer. The hepatic echotexture is slightly increased and coarsened. The portal vein is patent. Antegrade flow. Visualized portion of the pancreatic body is unremarkable. The aorta is poorly visualized, although appears unremarkable. Liver measures 17.8 cm in length. Portal vein is patent. Antegrade flow. Gallbladder wall thickne ss is less than 3 mm. There appears to be some adenomyomatosis of the gallbladder. The right kidney measures 12 x 6.4 x 6.2 cm without mass, hydronephrosis, or abnormal calcifications . Common bile duct measures less than 6 mm. The left kidney measures 13.5 x 7 6.5 cm without mass, hydronephrosis, or abnormal calcifications. The spleen measures just under 11 cm in length. IMPRESSION: 1. Increased hepatic echotexture to suggest steatosis. 2. Gallbladder adenomyomatosis. 3. No acute abnormality. POS: [facility]
[2017-09-12] MEDS ORDERED: Iopamidol 370 76% 100 ML VIAL ONE (14:56)
[2017-09-12] MEDS ORDERED: ADENOSINE 60 MG/20 ML VIAL ONE (15:12)
[2017-09-12] MEDS ORDERED: Ketorolac Tromethamine 30 MG/ML VIAL IVP PRN (15:40)
--- NOTE | 2017-09-12 15:44 | NM ---
NUCLEAR MEDICINE CARDIAC STRESS TEST WITH EJECTION FRACTION: HISTORY: Chest pain, diabetes, hypertension, high cholesterol. COMPARISON: None. TECHNIQUE: Stress and rest was performed after the intravenous administration of 29.4 and 10.5 mCi Technetium 9 9m sestamibi intravenously. Exam was performed using nuclear adenosine stress protocol. The EKG stress was normal. FINDINGS: No scar or reversible ischemia. The ejection fraction is calculated at 57%. Normal wall motion. IMPRESSION: No evidence of scar or ischemia. Ejection fraction 57%. No dyskinesia. POS: [facility]
[2017-09-12] MEDS ORDERED: Ketorolac Tromethamine 30 MG/ML VIAL IVP SCH (16:00)
[2017-09-12 16:23] LABS: Troponin I Less than 0.010 ng/mL (< 0.028)
--- NOTE | 2017-09-12 16:35 | CT ---
CT ANGIO CHEST PERFORMED WITH INTRAVENOUS CONTRAST ENHANCEMENT WITH 3D RECONSTRUCTIONS: History: Shortness of breath. Comparison: 09-05-17 FINDINGS: The lungs are clear of any infiltrative process. No pulmonary nodules or pleural effusions. The thoracic aorta is normal in caliber. There is good pulmonary artery opacification, there is no CT evidence for pulmonary embolus. Visualized liver parenchyma is unremarkable. Right and left adrenal glands are normal. CA No CT evidence of pulmonary embolus. POS: [facility]
[2017-09-12] MEDS ORDERED: Fentanyl 100 MCG/2 ML VIAL SLOW IVP SCH (17:45)
[2017-09-12 23:01] LABS: Amphetamine Not Detected (NotDetected); Methadone Not Detected (NotDetected); Methamphetamine Not Detected (NotDetected)
[2017-09-13] MEDS: traMADol HCl 50 MG TAB PO PRN ×2 (00:59→08:03)
[2017-09-13 04:25] LABS: #Basophils 0.1 thou/uL (0.0-0.2); #Eosinphils 0.2 thou/uL (0.0-0.7); #Monocytes 0.7 thou/uL (0.11-0.59); #Neutrophils 5.8 thou/uL (1.40-6.50); %Basophils 1.3 % (0.0-1.0); %Eosinophils 2.2 % (0.0-10.0); %Lymphocytes 36.6 % (21.0-51.0); %Monocytes 6.4 % (0.0-10.0); Mean Platelet Volume 6.3 fL (7.4-10.4); Red Blood Cell (RBC) Count 4.81 mill/uL (4.70-6.10); White Blood Cell (WBC) Count 10.9 thou/uL (4.8-10.8)
[2017-09-13 05:00] LABS: Anion Gap 11 mmol/L (10-20); BUN (Urea Nitrogen) 18 mg/dL (8.9-20.6); Calc. Creatinine Clearance 193 mL/min (70-130); Calcium 9.5 mg/dL (7.8-10.44); Carbon Dioxide 29 mmol/L (22-29); Chloride 102 mmol/L (98-107); Estimated GFR-MDRD Greater than 90
[2017-09-13] MEDS ORDERED: glipiZIDE 5 MG TAB PO SCH (07:30)
[2017-09-13 07:45] VITALS: BP 156/67; TEMP 98.6
[2017-09-13] MEDS ORDERED: Aspirin 325 MG TAB PO SCH (09:00)
[2017-09-13] MEDS ORDERED: Enoxaparin Sodium 40 MG/0.4 ML SYRINGE SC SCH (09:00)
[2017-09-13] MEDS ORDERED: Amlodipine 10 MG TAB PO SCH (09:00)
[2017-09-13] MEDS ORDERED: Lisinopril 10 MG TAB PO SCH (09:00)
--- NOTE | 2017-09-13 10:33 | DIS ---
DATE OF ADMISSION: 09/12/2017 DATE OF DISCHARGE: 09/13/2017 PRIMARY CARE PHYSICIAN: Jillian Boykin M.D. DISCHARGE DIAGNOSIS: Chest pain, improved. INVESTIGATIONS DURING THIS HOSPITALIZATION: 1. CT angiogram of the chest, which did not reveal any evidence of pulmonary embolism. 2. Nuclear stress test, which did not show any evidence of scar or ischemia. Ejection fraction 57% for the left ventricle. No dyskinesia. CONDITION OF PATIENT AT THE TIME OF DISCHARGE: Stable. I assessed Mr. Saucedo on the day of dischar . He reports that his chest pain has improved. Vital signs are stable. S1 and S2 are heard, reg ular. Lungs are clear to auscultation bilaterally. He does have mildly reproducible tenderness ove r the right chest wall. DISCHARGE MEDICATIONS: Tramadol 50 mg orally every 8 hours as needed, 10 doses to be dispensed; aml odipine 10 mg daily; lisinopril 10 mg daily; glipizide 5 mg daily. HOSPITAL COURSE: Mr. Saucedo is a pleasant 37-year-old gentleman, who was admitted to [facility] on 09/12/2017. He came in with right-sided chest pain. He had a CT angiogram o f the chest as well as nuclear stress test, with results summarized above. He improved in terms of chest pain after administration of tramadol. He is being discharged home in a stable condition. He is advised to follow up with his primary care provider in 2-3 days. During this hospitalization, rubi thapa had urine toxicology screen that was positive for opiates, benzodiazepines, and cocaine metabolite s. On the day of discharge, he has normal electrolytes, normal creatinine, white count 10,900, hemo globin 14.6, and platelet count 474,000. He is advised to follow up with his primary care provider for monitoring of platelet counts and workup for thrombocythemia as needed. Many thanks for allowing me to participate in your patient's care. Please feel free to contact me w ith any questions or concerns. DISCHARGE DESTINATION: Home.
== END 2017-09-13 10:35 | disposition home or self-care (01) ==
LOC: ERS 07:24 → 2SW 10:24
PROVIDERS: ADMIT Internal Medicine; ATTEND Internal Medicine
DX: R07.89 Other chest pain (principal); E11.9 Type 2 diabetes mellitus without complications; I10 Essential (primary) hypertension; F17.210 Nicotine dependence, cigarettes, uncomplicated; Z79.84 Long term (current) use of oral hypoglycemic drugs; Z79.899 Other long term (current) drug therapy; Z98.890 Other specified postprocedural states
CPT/HCPCS: 36415; 36416; 71010; 71275; 76700; 78452; 80048; 80053; 80306; 82553; 83690; 84484; 85025; 85379; 93005; 93017; 94760; 96374; 96375; 96376; A9500; G0378; J0153; J1650; J1885; J2270; J3010

== ENCOUNTER 2017-09-19 16:12 | Emergency (ER) | payer SELFPAY ==
[2017-09-19 16:54] LABS: #Basophils 0.1 thou/uL (0.0-0.2); #Eosinphils 0.2 thou/uL (0.0-0.7); #Lymphocytes 2.5 thou/uL (1.20-3.40); #Monocytes 0.6 thou/uL (0.11-0.59); #Neutrophils 7.3 thou/uL (1.40-6.50); %Basophils 0.8 % (0.0-1.0); %Eosinophils 1.6 % (0.0-10.0); %Lymphocytes 23.6 % (21.0-51.0); %Monocytes 5.7 % (0.0-10.0); Red Blood Cell (RBC) Count 4.02 mill/uL (4.70-6.10); White Blood Cell (WBC) Count 10.7 thou/uL (4.8-10.8)
[2017-09-19 17:14] LABS: ALT (SGPT) 22 U/L (8-55); AST (SGOT) 15 U/L (5-34); Alkaline Phosphatase 76 U/L (40-150); Anion Gap 16 mmol/L (10-20); BUN (Urea Nitrogen) 16 mg/dL (8.9-20.6); Bilirubin, Total 0.2 mg/dL (0.2-1.2); CK (CPK) 95 U/L (30-200); Calc. Creatinine Clearance 0 mL/min (70-130); Calcium 9.2 mg/dL (7.8-10.44); Carbon Dioxide 24 mmol/L (22-29); Chloride 102 mmol/L (98-107); Estimated GFR-MDRD Greater than 90; Globulin 3.2 g/dL (2.4-3.5)
[2017-09-19] MEDS ORDERED: Ketorolac Tromethamine 30 MG/ML VIAL ONE (17:16)
[2017-09-19 17:17] LABS: Troponin I Less than 0.010 ng/mL (< 0.028)
== END 2017-09-19 18:01 | disposition home or self-care (01) ==
LOC: ERS 16:12
DX: R60.0 Localized edema (principal); I10 Essential (primary) hypertension; F41.9 Anxiety disorder, unspecified; F17.210 Nicotine dependence, cigarettes, uncomplicated; Z79.899 Other long term (current) drug therapy
CPT/HCPCS: 36415; 80053; 82550; 82553; 83880; 84484; 85025; 93005; 96372; J1885

== ENCOUNTER 2017-10-04 20:35 | Emergency (ER) | payer SELFPAY | END 2017-10-04 20:40 | disposition left against medical advice (07) | LOC: ERS 20:35 | DX: Z53.21 Procedure and treatment not carried out due to patient leaving prior to being seen by health care provider (principal) ==

== ENCOUNTER 2017-10-08 14:13 | Emergency (ER) | payer SELFPAY ==
[2017-10-08] MEDS ORDERED: Ketorolac Tromethamine 60 MG/2 ML VIAL ONE (16:33)
--- NOTE | 2017-10-30 15:33 | EKG ---
Test Reason : Blood Pressure : / mmHG Vent. Rate : 095 BPM Atrial Rate : 095 BPM P-R Int : 138 ms QRS Dur : 090 ms QT Int : 334 ms P-R-T Axes : 014 036 017 degrees QTc Int : 419 ms Normal sinus rhythm Normal ECG Confirmed by JOMAR JEWELL D.O. ([id number]), senior technical editor RISHABH BURLESON ([id number]) on 10/30/2017 3:33:43 PM Referred By: Confirmed By:JOMAR JEWELL D.O.
== END 2017-10-08 16:52 | disposition home or self-care (01) ==
LOC: ERS 14:13
DX: M54.5 Low back pain (principal); G89.29 Other chronic pain; I10 Essential (primary) hypertension
CPT/HCPCS: 93005; 96372; J1885

== ENCOUNTER 2017-10-20 03:26 | Observation (INO) | payer SELFPAY ==
[2017-10-20] MEDS ORDERED: methylPREDNISolone Sod Succ/PF 125 MG/2 ML VIAL ONE (03:55)
[2017-10-20] MEDS ORDERED: Water For Inject, Bacteriostat 30 ML ONE (03:55)
[2017-10-20 03:58] LABS: #Basophils 0.1 thou/uL (0.0-0.2); #Eosinphils 0.3 thou/uL (0.0-0.7); #Lymphocytes 3.6 thou/uL (1.20-3.40); #Monocytes 0.8 thou/uL (0.11-0.59); #Neutrophils 10.4 thou/uL (1.40-6.50); %Basophils 0.8 % (0.0-1.0); %Eosinophils 1.7 % (0.0-10.0); %Lymphocytes 23.6 % (21.0-51.0); Hematocrit 40.7 % (42.0-52.0); Mean Platelet Volume 6.7 fL (7.4-10.4); Red Blood Cell (RBC) Count 4.22 mill/uL (4.70-6.10); White Blood Cell (WBC) Count 15.1 thou/uL (4.8-10.8)
[2017-10-20 04:20] LABS: ALT (SGPT) 44 U/L (8-55); AST (SGOT) 19 U/L (5-34); Alkaline Phosphatase 78 U/L (40-150); Anion Gap 16 mmol/L (10-20); BUN (Urea Nitrogen) 15 mg/dL (8.9-20.6); Bilirubin, Total 0.3 mg/dL (0.2-1.2); Calc. Creatinine Clearance 0 mL/min (70-130); Calcium 9.4 mg/dL (7.8-10.44); Carbon Dioxide 29 mmol/L (22-29); Chloride 100 mmol/L (98-107); Estimated GFR-MDRD Greater than 90; Protein, Total 7.4 g/dL (6.0-8.3)
[2017-10-20 04:24] LABS: Troponin I Less than 0.010 ng/mL (< 0.028)
[2017-10-20 04:52] LABS: Lactic Acid - Sepsis 2.5 mmol/L (0.5-2.2)
[2017-10-20 08:04] VITALS: BMI 384.3
[2017-10-20] MEDS ORDERED: Acetaminophen 325 MG TAB PO PRN ×2 (08:19→08:49)
[2017-10-20] MEDS ORDERED: Ondansetron ODT 4 MG TAB SL PRN (08:19)
[2017-10-20] MEDS ORDERED: Ondansetron HCl/PF 4 MG/2 ML Vial IVP PRN (08:19)
[2017-10-20] MEDS ORDERED: Sodium Chloride 0.9% 1,000 ML IV SCH ×2 (08:30→09:00)
[2017-10-20] MEDS ORDERED: Piperacillin/Tazobactam 4.5 GM in Sodium Chloride 0.9% 100 ML IVPB SCH (08:30)
--- NOTE | 2017-10-20 08:39 | HP ---
PRIMARY CARE PROVIDER: Dr. Jillian Boykin. Referred to the [facility] by [facility] for pneumonia and lactic acidosis. HISTORY OF PRESENT ILLNESS: The patient states he has had one day of wheezing a little, it got worse , he decided to come to the emergency room. He has had no fever, no chills, no sweats. He has had s ome upper sternal sharp chest pain. He has very occasional cough, nonproductive. PAST MEDICAL HISTORY: Recent diagnosis of diabetes mellitus type 2, hypertension, chronic back pain. PAST SURGICAL HISTORY: He has had back surgery. PSYCHIATRIC HISTORY: Pertinent for anxiety. FAMILY HISTORY: No premature coronary artery disease, etc. SOCIAL HISTORY: Drinks alcohol occasionally, states he smokes less than a pack a day. Full code sta tus. . ALLERGIES: No known drug allergies. CURRENT MEDICATIONS: Amlodipine 5 mg a day, glipizide 5 mg a day, lisinopril 10 mg a day, gabapentin 300 mg a day p.r.n., Toradol 10 mg unknown frequency, Flexeril 10 mg p.o. t.i.d. p.r.n., tramadol 50 mg every 6 hours as needed for pain. REVIEW OF SYSTEMS: General: No headaches, dizziness or fainting. Eyes: No double vision, blurred vision, flashing lights. ENT: No ear pain or drainage. No nose bleeding, no trouble with oral or t hroat complaints. Cardiac: No pressure, chest pain, no orthopnea or paroxysmal nocturnal dyspnea. Respiratory: Shortness of breath, occasional cough, no history of asthma. Gastrointestinal: He had a little bit of diarrhea yesterday. Otherwise, no abdominal pain, nausea, vomiting, diarrhea or con stipation. Last BM today. Genitourinary: No hematuria or dysuria. Musculoskeletal: Diffuse aches and pains, back pain, leg pain. No swelling in his legs. Neurological: No strokes, seizures or fo delon weakness. Psychiatric: Pertinent for anxiety related problems. Skin: No bruises, bleeding or rash. Heme/Lymph: No tender or swollen lymph nodes in axilla, inguinal, or cervical area. PHYSICAL EXAMINATION: GENERAL: Alert, comfortable. VITAL SIGNS: His blood pressure was elevated at 157/102, pulse 90, respirations 16, nonlabored, temp erature 95, O2 sat 95% on room air. HEENT: Pupils equal, round, and reactive to light. Extraocular movements are intact. Sclerae white . Tympanic membranes are clear. Nose clear. Oral mucous membranes are wet. Dental hygiene is good . NECK: Supple, without jugular venous distention, adenopathy or thyromegaly. CHEST: Really grossly clear, but on forced expiration, he does have some very minor diffuse expirato ry wheezes. HEART: Had a regular rate and rhythm. First and second heart sounds are clear. There are no apprec iated murmurs or gallops. ABDOMEN: Soft, bowel sounds are normal. There is no hepatosplenomegaly, no mass, no rebound. EXTREMITIES: Reveal no cyanosis, clubbing or edema. PULSES: Carotid, radial, femoral, and dorsalis pedis pulses intact. SKIN: Warm and dry without bruises or rash. HEME/LYMPH: Reveal no tender or swollen lymph nodes in axilla, inguinal, or cervical area. NEUROLOGIC: Cranial nerves II through XII are intact. Deep tendon reflexes intact. Moves all extre mities. X-RAY FINDINGS: Chest x-ray is read by the emergency room doctor, has a right lower lobe pneumonia. I have reviewed all of his recent chest x-rays, there is no significant change in any of them, no ev idence of any focal consolidation, etc., reviewed by myself. EKG, sinus tachycardia, otherwise withi n normal limits, reviewed by myself. LABORATORY DATA: White count 15.1, hemoglobin 14.0, platelet count 324,000. Comp metabolic profile normal except for a glucose of 181. Lactic acid 2.4. Cardiac enzymes normal. BNP normal. I review ed his old records, he has had similar admissions with elevated lactic acid, which resolved quickly. FINAL DIAGNOSES: 1. Dyspnea. Suspect asthmatic bronchitis. 2. Hypertension, uncontrolled at present. 3. Diabetes mellitus type 2. 4. Anxiety. PLAN: Neb therapies. Monitor O2 saturation, oxygen if necessary. Repeat lactic acid level. Accu-C heks, sliding scale and monitor blood pressure for control, reinstitute home medicines.
--- NOTE | 2017-10-20 08:43 | RAD ---
RADIOGRAPH CHEST 1 VIEW: HISTORY: 37-year-old male with wheezing, chest pain, and dyspnea. FINDINGS: There is no air space density, pulmonary edema, or pneumothorax. The lateral costophrenic angles are sharp. IMPRESSION: No acute pulmonary findings. marie POS: [facility]
[2017-10-20] MEDS ORDERED: Dextrose 5% in Water 1,000 ML IV PRN (08:51)
[2017-10-20] MEDS ORDERED: Dextrose 50% Abboject 50 ML SYRINGE SLOW IVP PRN (08:51)
[2017-10-20] MEDS ORDERED: HumaLOG 300 UNITS/3 ML VIAL SC PRN (08:52)
[2017-10-20] MEDS ORDERED: Ondansetron ODT 4 MG TAB PO PRN (08:53)
[2017-10-20] MEDS ORDERED: Zolpidem Tartrate 5 MG TAB PO PRN (08:54)
[2017-10-20] MEDS ORDERED: predniSONE 20 MG TAB PO SCH (09:00)
[2017-10-20] MEDS ORDERED: Azithromycin 250 MG TAB PO SCH (09:00)
--- NOTE | 2017-10-20 10:14 | DIS ---
DATE OF ADMISISON: 10/20/2017 DATE OF DISCHARGE: 10/20/2017 PRIMARY CARE PROVIDER: Dr. Jillian Boykin. DISCHARGE DISPOSITION: Home. FINAL DIAGNOSES: Shortness of breath, lactic acidosis, mild diabetes mellitus type 2, hypertension. ALLERGIES: None. DISCHARGE MEDICATIONS: His usual home medicines, amlodipine 10 mg a day, Lisinopril 10 mg a day, gli pizide 5 mg a day, tramadol 50 mg p.o. q.8 hours p.r.n., Z-SPEEDY start today, albuterol HFA 2 puffs q.4 hours p.r.n. shortness of breath. PENDING AT TIME OF DISCHARGE: Nothing. CODE STATUS: FULL. HOSPITAL COURSE: The patient came to the emergency room with shortness of breath. No associated sym ptoms. Provisional diagnosis of pneumonia with lactic acidosis was made by the emergency room physic donell. He went AMA from the emergency room and returned to the emergency room and was admitted. His c hest is clear. His chest x-ray is unchanged from previous. LABORATORY DATA: White count 15.1, platelet count 14.0. Comp metabolic profile normal. Cardiac enz ymes normal. His lactic acid is somewhat high. He insisted on discharge as he has to move. He is being discharged at his request. A prescription f or Proventil inhaler q.4 hours for shortness of breath is given, a Z-SPEEDY was given. He has been told to follow up soon with his primary care doctor. CONSULTATIONS: None. PROCEDURES: None.
[2017-10-20 11:56] VITALS: BP 171/109; TEMP 98.1
[2017-10-20] MEDS ORDERED: FLU VACC QS2017-18 36 mo. & older 0.5 ML SYRINGE IM ONE (12:00)
[2017-10-20] MEDS ORDERED: Vancomycin HCl 1.5 GM in Sodium Chloride 0.9% 250 ML 300 ML IVPB SCH (12:00)
== END 2017-10-20 11:58 | disposition home or self-care (01) ==
LOC: ERS 03:26 → INTOOBSV 06:29 → 2NO 06:29
PROVIDERS: ADMIT Internal Medicine; ATTEND Internal Medicine
DX: R06.02 Shortness of breath (principal); E87.2 Acidosis; E11.9 Type 2 diabetes mellitus without complications; I10 Essential (primary) hypertension; F41.9 Anxiety disorder, unspecified; F17.210 Nicotine dependence, cigarettes, uncomplicated; Z79.84 Long term (current) use of oral hypoglycemic drugs; Z79.899 Other long term (current) drug therapy
CPT/HCPCS: 36415; 71010; 80053; 82553; 83605; 83880; 84484; 85025; 87040; 87149; 93005; 94640; 94760; 96374; G0378; J2543; J2930; J3370; J7050; J7506; J7620

== ENCOUNTER 2017-10-20 06:05 | Emergency (ER) | payer SELFPAY ==
[2017-10-20] MEDS ORDERED: Piperacillin/Tazobactam 4.5 GM in Sodium Chloride 0.9% 100 ML IVPB SCH (06:45)
[2017-10-20 07:49] LABS: Troponin I 0.013 ng/mL (< 0.028)
[2017-10-20] MEDS ORDERED: Sodium Chloride 0.9% 1,000 ML IV SCH (08:03)
[2017-10-20] MEDS ORDERED: Dextrose 50% Abboject 50 ML SYRINGE SLOW IVP PRN (08:03)
[2017-10-20] MEDS ORDERED: Ondansetron ODT 4 MG TAB PO PRN (08:03)
[2017-10-20] MEDS ORDERED: Acetaminophen 325 MG TAB PO PRN (08:03)
[2017-10-20] MEDS ORDERED: Zolpidem Tartrate 5 MG TAB PO PRN (08:03)
[2017-10-20] MEDS ORDERED: Dextrose 5% in Water 1,000 ML IV PRN (08:03)
[2017-10-20] MEDS ORDERED: HumaLOG 300 UNITS/3 ML VIAL SC PRN (08:03)
[2017-10-20 08:26] LABS: Lactic Acid - Sepsis 2.6 mmol/L (0.5-2.2)
[2017-10-20] MEDS ORDERED: predniSONE 20 MG TAB PO SCH ×2 (09:00)
[2017-10-20] MEDS ORDERED: Azithromycin 250 MG TAB PO SCH (09:00)
== END 2017-10-20 07:38 | disposition short-term general hospital (02) ==
LOC: ERS 06:05
DX: J18.9 Pneumonia, unspecified organism (principal); I10 Essential (primary) hypertension; Z87.891 Personal history of nicotine dependence; Z79.84 Long term (current) use of oral hypoglycemic drugs; Z79.899 Other long term (current) drug therapy
CPT/HCPCS: 36415; 83605; 96365; J2543; J3370; J7050

== ENCOUNTER 2017-10-29 08:21 | Emergency (ER) | payer SELFPAY ==
[2017-10-29] MEDS ORDERED: Acetaminophen 500 MG TAB ONE (08:51)
[2017-10-29] MEDS ORDERED: methylPREDNISolone Sod Succ/PF 125 MG/2 ML VIAL ONE (08:52)
[2017-10-29] MEDS ORDERED: Water For Inject, Bacteriostat 30 ML ONE (08:53)
[2017-10-29] MEDS ORDERED: Morphine 4 MG/ML VIAL ONE (10:41)
== END 2017-10-29 11:18 | disposition home or self-care (01) ==
LOC: ERS 08:21
DX: M54.32 Sciatica, left side (principal); I10 Essential (primary) hypertension; Z87.891 Personal history of nicotine dependence; Z79.84 Long term (current) use of oral hypoglycemic drugs
CPT/HCPCS: 96372; J2270; J2930

== ENCOUNTER 2017-11-07 21:43 | Emergency (ER) | payer SELFPAY ==
[2017-11-07] MEDS ORDERED: Fluorescein Opthalmic Strip ONE (22:00)
[2017-11-07] MEDS ORDERED: Proparacaine 0.5% Opth 15 ML BOT ONE (22:02)
[2017-11-07] MEDS ORDERED: Erythromycin Base 0.5% Oint 1 GM TUBE ONE (22:27)
[2017-11-07] MEDS ORDERED: Ketorolac Tromethamine 30 MG/ML VIAL ONE (22:27)
== END 2017-11-07 22:46 | disposition home or self-care (01) ==
LOC: ERS 21:43
DX: S05.01XA Injury of conjunctiva and corneal abrasion without foreign body, right eye, initial encounter (principal); F17.210 Nicotine dependence, cigarettes, uncomplicated; I10 Essential (primary) hypertension; Z79.84 Long term (current) use of oral hypoglycemic drugs; Z79.899 Other long term (current) drug therapy
CPT/HCPCS: 96372; J1885

== ENCOUNTER 2018-01-22 12:37 | Emergency (ER) | payer OTHER, SELFPAY ==
[2018-01-22] MEDS ORDERED: Ketorolac Tromethamine 30 MG/ML VIAL ONE (13:20)
--- NOTE | 2018-01-22 15:35 | RAD ---
RADIOGRAPH CHEST 2 VIEWS: 01/22/18 HISTORY: 37-year-old male with chest pain for one week. FINDINGS: There is no air space density, pulmonary edema, pleural effusion, pneumothorax, or cardiomegaly. IMPRESSION: No acute cardiopulmonary findings. jn [] POS: [facility]
== END 2018-01-22 15:14 | disposition home or self-care (01) ==
LOC: ERS 12:37
DX: R07.89 Other chest pain (principal); E11.9 Type 2 diabetes mellitus without complications; I10 Essential (primary) hypertension; F17.210 Nicotine dependence, cigarettes, uncomplicated; Z79.84 Long term (current) use of oral hypoglycemic drugs; Z79.899 Other long term (current) drug therapy
CPT/HCPCS: 71046; 85379; 93005; 96374; J1885

== ENCOUNTER 2018-03-09 13:44 | Emergency (ER) | payer SELFPAY ==
[~2018-03-09 13:44] MED LIST changes: -ADENOSINE 60 MG/20 ML VIAL ONE; +ISOVUE-370 76%-LOCM 1 ML ONE
[2018-03-09 14:33] LABS: Blood, Urine Large (Negative); Clarity TURBID (Clear); Nitrite Negative (Negative); Protein, Urine (Dipstick) 30 mg/dL (Neg-Trace); Specific Gravity, Urine 1.033 (1.002-1.036); pH, Urine 5.5 (5.0-9.0)
[2018-03-09 14:35] LABS: Bacteria/HPF None Seen HPF (None Seen); Squamous Epithelial 0-3 HPF (0-3)
[2018-03-09 14:36] LABS: #Basophils 0.1 thou/uL (0.0-0.2); #Eosinphils 0.3 thou/uL (0.0-0.7); #Lymphocytes 3.4 thou/uL (1.20-3.40); #Monocytes 1.1 thou/uL (0.11-0.59); #Neutrophils 8.9 thou/uL (1.40-6.50); %Basophils 0.8 % (0.0-1.0); %Eosinophils 2.3 % (0.0-10.0); %Lymphocytes 24.9 % (21.0-51.0); %Monocytes 7.9 % (0.0-10.0); %Neutrophils 64.2 % (42.0-75.0); Hemoglobin 16.6 g/dL (14.0-18.0); Mean Corpuscular HGB CONC 33.8 g/dL (32.0-36.0); Mean Corpuscular Hemoglobin 30.7 pg (27.0-31.0); Mean Corpuscular Volume 90.8 fl (80.0-94.0); Mean Platelet Volume 6.7 fL (7.4-10.4); Platelet Count 427 thou/uL (130-400); RBC Distribution Width 12.3 % (11.5-14.5); Red Blood Cell (RBC) Count 5.39 mill/uL (4.70-6.10); White Blood Cell (WBC) Count 13.8 thou/uL (4.8-10.8)
[2018-03-09 14:37] LABS: Pathc Cast-AUWi Flag 3.05 (0-2.49)
[2018-03-09 14:46] LABS: Leukocyte Negative (Negative)
[2018-03-09 14:47] LABS: Bilirubin Negative (Negative); Glucose, Urine (Dipstick) Negative (Negative); Urobilinogen 0.2 mg/dL (0.2-1.0)
[2018-03-09 14:49] LABS: RBC/HPF GREATER THAN 50-TNTC HPF (0-3)
[2018-03-09 14:50] LABS: Yeast-All Forms None Seen HPF (None Seen)
[2018-03-09 14:51] LABS: Hyaline Casts/LPF 0-3 HYALINE CAST LPF (0-3 Hyaline); Other Casts/LPF None Seen LPF (0-3 Hyaline); Renal Epithelial 0-3 HPF (0-3); Transitional Epithelial 0-3 HPF (0-3)
[2018-03-09 14:57] LABS: ALT (SGPT) 27 U/L (8-55); AST (SGOT) 14 U/L (5-34); Albumin 4.4 g/dL (3.5-5.0); Alkaline Phosphatase 74 U/L (40-150); Anion Gap 13 mmol/L (10-20); BUN (Urea Nitrogen) 23 mg/dL (8.9-20.6); Bilirubin, Total 0.4 mg/dL (0.2-1.2); Calc. Creatinine Clearance 0 mL/min (70-130); Carbon Dioxide 24 mmol/L (22-29); Chloride 103 mmol/L (98-107); Estimated GFR-MDRD 55; Glucose 116 mg/dL (70-105); Lipase 14 U/L (8-78); Potassium 3.9 mmol/L (3.5-5.1); Protein, Total 7.4 g/dL (6.0-8.3); Sodium 136 mmol/L (136-145)
--- NOTE | 2018-03-09 17:06 | ULT ---
ULTRASOUND SCROTUM TESTICLES DOPPLER DUPLEX: 03/09/18 HISTORY: Right scrotal pain and hematuria in 37-year-old male. TECHNIQUE: Tian-scale evaluation of intrascrotal contents. Color flow Doppler and spectral waveform analysis of the testicles. FINDINGS: The bilateral testicles are normal in size, have homogeneously normal echogenicity, and have symmetri delon blood flow. The epididymal heads are bilaterally normal in size. There is no intratesticular ma ss, hydrocele, or varicocele. IMPRESSION: Normal. jn [] POS: [facility]
[2018-03-09] MEDS ORDERED: Ketorolac Tromethamine 30 MG/ML VIAL ONE (17:18)
[2018-03-09] MEDS ORDERED: cloNIDine 0.1 MG TAB ONE (17:19)
--- NOTE | 2018-03-09 17:31 | CT ---
NONCONTRAST CT ABDOMEN AND PELVIS 03/09/18 HISTORY: Hematuria with abdominal pain radiating to back. COMPARISON: 01/17/13. FINDINGS: There is bibasilar atelectasis present. Mild degenerative changes are seen in the spine. There are bilateral pars defects present at L5 with probable mild grade I anterolisthesis of L5 on S1. There is also suggestion of a left laminotomy defe ct at this level. The liver, spleen, pancreas, bilateral adrenal glands, kidneys, and decompressed urinary bladder demo nstrates a grossly normal nonenhanced CT appearance. No renal or ureteral calculi are seen bilaterally and there is no evidence of hydronephrosis. The appendix is visualized and normal in caliber. Loops of small bowel are normal in caliber. There is no free fluid, fluid collection, or lymphadenopathy seen in the abdomen or pelvis. IMPRESSION: 1. No acute findings are seen in the abdomen or pelvis. 2. No renal or ureteral calculi are seen bilaterally. 3. Small fat containing umbilical hernia. 4. Spondylolisthesis L5-S1 level. POS: [facility]
[2018-03-09] MEDS ORDERED: HYDROcodone/Acetaminophen 5/325 mg Tablet ONE (18:46)
--- NOTE | 2018-03-09 20:11 | CT ---
CT OF THE ABDOMEN AND PELVIS WITH IV CONTRAST: 03/09/18 INDICATION: Right sided flank pain. COMPARISON: Prior exam dated 03/09/18 at 3:16 p.m. FINDINGS: There is very subtle mild delayed enhancement involving the right kidney when compared to the left on the current examination. The right kidney appears slightly more prominent. No perinephric stranding is evident. No hydronephrosis is demonstrated. No definite solid renal lesion is noted. The visualized aspects of the bladder are unremarkable. There is a normal appendix in the right lower quadrant. There are a few scattered colonic diverticula. No focal hepatic lesion is evident. The gallbladder is mildly distended. The pancreas, adrenal glands , and spleen appear within normal limits. There is some subsegmental atelectasis involving the lung bases. There is scattered degenerative change. There are bilateral pars defects at L5. IMPRESSION: 1. Slightly delayed enhancement of the right kidney can be seen with an entity such as pyeloneph ritis. Recommend correlation with the patient's urinary laboratories. 2. Diverticulosis. POS: [facility]
== END 2018-03-09 19:19 | disposition home or self-care (01) ==
LOC: ERS 13:44
DX: N30.91 Cystitis, unspecified with hematuria (principal); E11.9 Type 2 diabetes mellitus without complications; I10 Essential (primary) hypertension; F17.210 Nicotine dependence, cigarettes, uncomplicated; Z79.899 Other long term (current) drug therapy
CPT/HCPCS: 36415; 74176; 74177; 76870; 80053; 81003; 81015; 83690; 85025; 87086; 93976; 96374; 96375; J0696; J1885

== ENCOUNTER 2018-03-29 09:25 | Emergency (ER) | payer SELFPAY ==
[2018-03-29 09:49] LABS: Bilirubin Small (Negative); Blood, Urine Large (Negative); Clarity Cloudy (Clear); Glucose, Urine (Dipstick) Negative (Negative); Leukocyte Trace (Negative); Nitrite Negative (Negative); Protein, Urine (Dipstick) 30 mg/dL (Neg-Trace); Specific Gravity, Urine 1.025 (1.005-1.030); Urobilinogen 0.2 mg/dL (0.2-1.0); pH, Urine 6.5 (5.0-9.0)
[2018-03-29 09:58] LABS: RBC/HPF GREATER THAN 50-TNTC HPF (0-3)
[2018-03-29 09:59] LABS: Squamous Epithelial 0-3 HPF (0-3)
[2018-03-29 10:02] LABS: Transitional Epithelial 0-3 HPF (0-3)
[2018-03-29] MEDS ORDERED: Ketorolac Tromethamine 30 MG/ML VIAL ONE (10:09)
[2018-03-29 10:10] LABS: Bacteria/HPF None Seen HPF (None Seen); Hyaline Casts/LPF NONE SEEN LPF (0-3 Hyaline)
[2018-03-29 10:37] LABS: #Basophils 0.1 thou/uL (0.0-0.2); #Eosinphils 0.3 thou/uL (0.0-0.7); #Lymphocytes 2.2 thou/uL (1.20-3.40); #Monocytes 0.6 thou/uL (0.11-0.59); #Neutrophils 5.8 thou/uL (1.40-6.50); %Basophils 0.6 % (0.0-1.0); %Eosinophils 3.1 % (0.0-10.0); %Lymphocytes 24.8 % (21.0-51.0); %Monocytes 6.6 % (0.0-10.0); Mean Corpuscular HGB CONC 33.8 g/dL (32.0-36.0); Mean Corpuscular Hemoglobin 31.4 pg (27.0-31.0); Mean Corpuscular Volume 92.7 fl (80.0-94.0); Mean Platelet Volume 7.3 fL (7.4-10.4); Platelet Count 310 thou/uL (130-400); RBC Distribution Width 12.3 % (11.5-14.5); Red Blood Cell (RBC) Count 4.78 mill/uL (4.70-6.10); White Blood Cell (WBC) Count 8.9 thou/uL (4.8-10.8)
[2018-03-29 10:46] LABS: Anion Gap 16 mmol/L (10-20); BUN (Urea Nitrogen) 20 mg/dL (8.9-20.6); Calc. Creatinine Clearance 0 mL/min (70-130); Calcium 9.4 mg/dL (7.8-10.44); Carbon Dioxide 24 mmol/L (22-29); Chloride 106 mmol/L (98-107); Estimated GFR-MDRD 54; Glucose 112 mg/dL (70-105); Potassium 4.1 mmol/L (3.5-5.1); Sodium 142 mmol/L (136-145)
[2018-03-29] MEDS ORDERED: Acetaminophen 500 MG TAB ONE (11:27)
--- NOTE | 2018-03-29 12:09 | ULT ---
RENAL SONOGRAM: Date: 03-29-18 History: Left renal colic, hematuria. FINDINGS: The kidneys demonstrate a normal sonographic appearance bilaterally without evidence of renal mass, r enal calculus, or hydronephrosis. The right kidney measures 10.7 cm x 7.1 cm. The left kidney measure s 13 cm x 6.7 cm. Urinary bladder is incompletely distended. IMPRESSION: 1. Normal appearing bilateral kidneys without evidence of hydronephrosis. 2. Incomplete distention of the urinary bladder. POS: [facility]
[2018-03-29] MEDS ORDERED: Morphine 4 MG/ML VIAL ONE (12:36)
== END 2018-03-29 13:50 | disposition home or self-care (01) ==
LOC: ERS 09:25
DX: R31.9 Hematuria, unspecified (principal); M54.5 Low back pain; E11.9 Type 2 diabetes mellitus without complications; I10 Essential (primary) hypertension; Z87.891 Personal history of nicotine dependence; Z79.84 Long term (current) use of oral hypoglycemic drugs; Z79.899 Other long term (current) drug therapy
CPT/HCPCS: 76770; 80048; 80500; 81003; 81015; 85025; 87086; 96361; 96374; 96375; J1885; J2270

== ENCOUNTER 2018-04-18 05:01 | Emergency (ER) | payer SELFPAY ==
[2018-04-18] MEDS ORDERED: Morphine 4 MG/ML VIAL ONE (05:15)
[2018-04-18] MEDS ORDERED: Ketorolac Tromethamine 30 MG/ML VIAL ONE (05:15)
== END 2018-04-18 05:54 | disposition home or self-care (01) ==
LOC: ERS 05:01
DX: M54.32 Sciatica, left side (principal); E11.9 Type 2 diabetes mellitus without complications; I10 Essential (primary) hypertension; Z87.891 Personal history of nicotine dependence; Z79.84 Long term (current) use of oral hypoglycemic drugs; Z79.899 Other long term (current) drug therapy
CPT/HCPCS: 96372; J1885; J2270

== ENCOUNTER 2018-04-20 12:58 | Emergency (ER) | payer SELFPAY ==
[2018-04-20] MEDS ORDERED: Ketorolac Tromethamine 30 MG/ML VIAL ONE (14:05)
--- NOTE | 2018-04-20 14:17 | RAD ---
CHEST 1 VIEW: Date: 04/20/18 HISTORY: Chest pain. COMPARISON: Chest radiograph dated 01/22/18. FINDINGS: Lungs are clear. No pneumothorax or effusion. Cardiac silhouette and mediastinal contour is within no rmal limits. IMPRESSION: No acute intrathoracic abnormality. No significant change. POS: [facility]
[2018-04-20 14:18] LABS: #Basophils 0.1 thou/uL (0.0-0.2); #Eosinphils 0.3 thou/uL (0.0-0.7); #Lymphocytes 2.7 thou/uL (1.20-3.40); #Monocytes 0.5 thou/uL (0.11-0.59); #Neutrophils 6.2 thou/uL (1.40-6.50); %Basophils 0.8 % (0.0-1.0); %Eosinophils 2.7 % (0.0-10.0); %Monocytes 5.1 % (0.0-10.0); %Neutrophils 63.5 % (42.0-75.0); Hemoglobin 16.5 g/dL (14.0-18.0); Mean Corpuscular HGB CONC 34.5 g/dL (32.0-36.0); Mean Corpuscular Hemoglobin 31.4 pg (27.0-31.0); Mean Corpuscular Volume 90.9 fl (80.0-94.0); Mean Platelet Volume 7.1 fL (7.4-10.4); Platelet Count 406 thou/uL (130-400); RBC Distribution Width 12.5 % (11.5-14.5); Red Blood Cell (RBC) Count 5.24 mill/uL (4.70-6.10); White Blood Cell (WBC) Count 9.8 thou/uL (4.8-10.8)
--- NOTE | 2018-04-20 14:20 | RAD ---
CHEST ONE VIEW: History: Injury. Comparison: None. FINDINGS: No fracture. No malalignment. Phleboliths in the pelvis. Soft tissues are unremarkable. IMPRESSION: No acute fracture or malalignment. POS: [facility]
[2018-04-20 14:46] LABS: CKMB 0.4 ng/mL (0-6.6); Troponin I Less than 0.010 ng/mL (< 0.028)
[2018-04-20 14:51] LABS: ALT (SGPT) 34 U/L (8-55); AST (SGOT) 17 U/L (5-34); Albumin 4.5 g/dL (3.5-5.0); Alkaline Phosphatase 69 U/L (40-150); Anion Gap 15 mmol/L (10-20); BUN (Urea Nitrogen) 15 mg/dL (8.9-20.6); Bilirubin, Total 0.4 mg/dL (0.2-1.2); CK (CPK) 32 U/L (30-200); Calc. Creatinine Clearance 0 mL/min (70-130); Calcium 9.9 mg/dL (7.8-10.44); Carbon Dioxide 23 mmol/L (22-29); Chloride 102 mmol/L (98-107); Estimated GFR-MDRD Greater than 90; Globulin 3.1 g/dL (2.4-3.5); Glucose 120 mg/dL (70-105); Potassium 4.5 mmol/L (3.5-5.1); Protein, Total 7.6 g/dL (6.0-8.3); Sodium 135 mmol/L (136-145)
[2018-04-20] MEDS ORDERED: Morphine 4 MG/ML VIAL ONE (16:05)
== END 2018-04-20 16:17 | disposition home or self-care (01) ==
LOC: ERS 12:58
DX: G89.29 Other chronic pain (principal); M54.5 Low back pain; E11.9 Type 2 diabetes mellitus without complications; I10 Essential (primary) hypertension; F17.210 Nicotine dependence, cigarettes, uncomplicated; Z79.899 Other long term (current) drug therapy
CPT/HCPCS: 71045; 72170; 80053; 82553; 84484; 85025; 93005; 96372; 96374; J1885; J2270

== ENCOUNTER 2018-04-28 15:24 | Emergency (ER) | payer SELFPAY ==
[2018-04-28] MEDS ORDERED: Morphine 10 MG/ML VIAL ONE (16:35)
[2018-04-28] MEDS ORDERED: Ketorolac Tromethamine 30 MG/ML VIAL ONE (16:42)
== END 2018-04-28 17:30 | disposition home or self-care (01) ==
LOC: ERS 15:24
DX: G89.29 Other chronic pain (principal); M54.5 Low back pain; E11.9 Type 2 diabetes mellitus without complications; I10 Essential (primary) hypertension; F17.210 Nicotine dependence, cigarettes, uncomplicated; Z79.899 Other long term (current) drug therapy
CPT/HCPCS: 96372; J1885; J2270

== ENCOUNTER 2018-05-06 00:59 | Emergency (ER) | payer SELFPAY ==
[2018-05-06] MEDS ORDERED: Lorazepam 2 MG/ML VIAL ONE (02:05)
[2018-05-06] MEDS ORDERED: Albuterol Sulfate 2.5 mg/3 ml Neb ONE (02:23)
[2018-05-06] MEDS ORDERED: Ketorolac Tromethamine 30 MG/ML VIAL ONE (02:37)
[2018-05-06] MEDS ORDERED: Ketorolac Tromethamine 60 MG/2 ML VIAL ONE (02:48)
--- NOTE | 2018-05-06 07:58 | RAD ---
UPRIGHT PORTABLE CHEST 1 VIEW: Date: 05/06/18 HISTORY: 38-year-old male with history of wheezing and shortness of breath. COMPARISON: 04/20/18. FINDINGS: Poor inspiration with mild bilateral vascular congestion and increased markings bilaterally. Minimal right hemidiaphragm elevation. No confluent pneumonia. IMPRESSION: Very poor inspiration with some minimal right hemidiaphragm elevation and increased bronchovascular m arkings bilaterally, possibly representing some minimal subsegmental atelectasis. No confluent pneumo david or overt edema. Recommend short-term follow-up upright PA and lateral chest whenever the patient can undergo that examination. POS: [facility]
== END 2018-05-06 03:04 | disposition home or self-care (01) ==
LOC: ERS 00:59
DX: R07.89 Other chest pain (principal); R06.02 Shortness of breath; I10 Essential (primary) hypertension; E11.9 Type 2 diabetes mellitus without complications; G89.29 Other chronic pain; F17.210 Nicotine dependence, cigarettes, uncomplicated; M54.9 Dorsalgia, unspecified; Z79.899 Other long term (current) drug therapy
CPT/HCPCS: 71045; 93005; 94640; 96372; 96374; J1885; J2060; J7611; J7620

== ENCOUNTER 2018-05-07 10:55 | Emergency (ER) | payer SELFPAY ==
[2018-05-07] MEDS ORDERED: Ketorolac Tromethamine 30 MG/ML VIAL ONE (11:44)
[2018-05-07 11:48] LABS: ALT (SGPT) 29 U/L (8-55); AST (SGOT) 14 U/L (5-34); Albumin 4.2 g/dL (3.5-5.0); Alkaline Phosphatase 63 U/L (40-150); Anion Gap 15 mmol/L (10-20); BUN (Urea Nitrogen) 16 mg/dL (8.9-20.6); Bilirubin, Total 0.3 mg/dL (0.2-1.2); Calc. Creatinine Clearance 0 mL/min (70-130); Calcium 9.2 mg/dL (7.8-10.44); Carbon Dioxide 25 mmol/L (22-29); Chloride 103 mmol/L (98-107); Estimated GFR-MDRD Greater than 90; Globulin 2.8 g/dL (2.4-3.5); Glucose 149 mg/dL (70-105); Sodium 139 mmol/L (136-145)
[2018-05-07 11:53] LABS: Troponin I Less than 0.010 ng/mL (< 0.028)
[2018-05-07] MEDS ORDERED: oxyCODONE/Acetaminophen 5 mg/325 mg Tablet PO SCH ×2 (12:00→12:45)
[2018-05-07 12:02] LABS: #Basophils 0.1 thou/uL (0.0-0.2); #Eosinphils 0.1 thou/uL (0.0-0.7); #Lymphocytes 3.8 thou/uL (1.20-3.40); #Monocytes 0.7 thou/uL (0.11-0.59); %Basophils 0.7 % (0.0-1.0); %Eosinophils 0.9 % (0.0-10.0); %Lymphocytes 35.4 % (21.0-51.0); %Monocytes 6.3 % (0.0-10.0); %Neutrophils 56.7 % (42.0-75.0); Hemoglobin 14.1 g/dL (14.0-18.0); Mean Corpuscular HGB CONC 33.8 g/dL (32.0-36.0); Mean Corpuscular Hemoglobin 31.5 pg (27.0-31.0); Mean Corpuscular Volume 93.3 fl (80.0-94.0); Mean Platelet Volume 6.7 fL (7.4-10.4); Platelet Count 348 thou/uL (130-400); RBC Distribution Width 13.1 % (11.5-14.5); Red Blood Cell (RBC) Count 4.48 mill/uL (4.70-6.10); White Blood Cell (WBC) Count 10.7 thou/uL (4.8-10.8)
--- NOTE | 2018-05-07 12:24 | RAD ---
2 VIEWS CHEST: Date: 05/07/18 PROVIDED CLINICAL HISTORY: Chest pain. FINDINGS: Comparison made with the study dated 05/06/18. The cardiac silhouette remains enlarged. Parenchymal opacity overlies the left lower lung zone on the frontal view, not definitely localized on the lateral exam. Lungs appear otherwise clear. No pleural fluid or pneumothorax apparent. IMPRESSION: Left lower lung zone parenchymal opacity may reflect pneumonia in the appropriate clinical context. O ther etiologies are not excluded. Follow-up is recommended. POS: [facility]
[2018-05-07 14:41] LABS: Troponin I Less than 0.010 ng/mL (< 0.028)
== END 2018-05-07 15:39 | disposition home or self-care (01) ==
LOC: ERS 10:55
DX: J18.9 Pneumonia, unspecified organism (principal); E11.9 Type 2 diabetes mellitus without complications; I10 Essential (primary) hypertension; F17.210 Nicotine dependence, cigarettes, uncomplicated; Z79.899 Other long term (current) drug therapy
CPT/HCPCS: 36415; 71046; 80053; 84484; 85025; 85379; 93005; 96374; 96375; 96376; J1885; J2270

== ENCOUNTER 2018-05-15 07:59 | Emergency (ER) | payer SELFPAY ==
[2018-05-15 08:34] LABS: #Basophils 0.1 thou/uL (0.0-0.2); #Eosinphils 0.2 thou/uL (0.0-0.7); #Lymphocytes 3.7 thou/uL (1.20-3.40); #Monocytes 0.8 thou/uL (0.11-0.59); #Neutrophils 7.8 thou/uL (1.40-6.50); %Eosinophils 1.5 % (0.0-10.0); %Lymphocytes 29.3 % (21.0-51.0); %Monocytes 6.3 % (0.0-10.0); Hemoglobin 15.1 g/dL (14.0-18.0); Mean Corpuscular HGB CONC 34.1 g/dL (32.0-36.0); Mean Corpuscular Hemoglobin 32.2 pg (27.0-31.0); Mean Corpuscular Volume 94.4 fL (78.0-98.0); Mean Platelet Volume 6.7 fL (7.4-10.4); Platelet Count 344 thou/uL (130-400); RBC Distribution Width 13.4 % (11.5-14.5); Red Blood Cell (RBC) Count 4.71 mill/uL (4.70-6.10); White Blood Cell (WBC) Count 12.6 thou/uL (4.8-10.8)
[2018-05-15 08:57] LABS: ALT (SGPT) 34 U/L (8-55); AST (SGOT) 14 U/L (5-34); Albumin 4.5 g/dL (3.5-5.0); Alkaline Phosphatase 73 U/L (40-150); Anion Gap 14 mmol/L (10-20); BUN (Urea Nitrogen) 19 mg/dL (8.9-20.6); Bilirubin, Total 0.3 mg/dL (0.2-1.2); CK (CPK) 28 U/L (30-200); Calc. Creatinine Clearance 0 mL/min (70-130); Calcium 9.7 mg/dL (7.8-10.44); Carbon Dioxide 25 mmol/L (22-29); Chloride 103 mmol/L (98-107); Estimated GFR-MDRD Greater than 90; Glucose 180 mg/dL (70-105); Lipase 17 U/L (8-78); Potassium 4.5 mmol/L (3.5-5.1); Protein, Total 7.5 g/dL (6.0-8.3); Sodium 137 mmol/L (136-145)
[2018-05-15 09:00] LABS: CKMB 1.4 ng/mL (0-6.6); Troponin I Less than 0.010 ng/mL (< 0.028)
[2018-05-15 09:04] LABS: Bilirubin Negative (Negative); Blood, Urine Negative (Negative); Clarity CLEAR (Clear); Glucose, Urine (Dipstick) 250 mg/dL (Negative); Leukocyte Negative (Negative); Nitrite Negative (Negative); Protein, Urine (Dipstick) Trace mg/dL (Neg-Trace); Specific Gravity, Urine 1.041 (1.002-1.036); Urobilinogen 0.2 mg/dL (0.2-1.0); pH, Urine 5.5 (5.0-9.0)
--- NOTE | 2018-05-15 10:03 | RAD ---
SINGLE VIEW OF THE CHEST: COMPARISON: 05/06/18. HISTORY: Chest pain. FINDINGS: Single view of the chest shows a normal sized cardiomediastinal silhouette. There is no evidence of c onsolidation, mass, or pleural effusion. The bones are unremarkable. IMPRESSION: No evidence of acute cardiopulmonary disease. POS: [facility]
== END 2018-05-15 10:35 | disposition home or self-care (01) ==
LOC: ERS 07:59
DX: F41.9 Anxiety disorder, unspecified (principal); R07.89 Other chest pain; Z71.6 Tobacco abuse counseling; F17.210 Nicotine dependence, cigarettes, uncomplicated; E11.9 Type 2 diabetes mellitus without complications; I10 Essential (primary) hypertension; Z79.84 Long term (current) use of oral hypoglycemic drugs; Z79.899 Other long term (current) drug therapy
CPT/HCPCS: 71045; 80053; 81003; 82553; 83690; 84484; 85025; 93005; 99406

== ENCOUNTER 2018-05-31 21:55 | Emergency (ER) | payer SELFPAY ==
[2018-05-31 22:25] LABS: Bilirubin Small (Negative); Blood, Urine Negative (Negative); Clarity TURBID (Clear); Glucose, Urine (Dipstick) 100 mg/dL (Negative); Leukocyte Trace (Negative); Nitrite Negative (Negative); Protein, Urine (Dipstick) 30 mg/dL (Neg-Trace); Specific Gravity, Urine 1.043 (1.002-1.036); Urobilinogen 0.2 mg/dL (0.2-1.0)
[2018-05-31 22:28] LABS: Bacteria/HPF None Seen HPF (None Seen); Hyaline Casts/LPF 0-3 HYALINE CAST LPF (0-3 Hyaline); Pathc Cast-AUWi Flag 0.72 (0-2.49); WBC/HPF 0-3 HPF (0-3); Yeast-AUWi Flag 7.8 (0-25.0)
[2018-05-31 22:30] LABS: Crystals/HPF 3+ AMORPH URATES HPF (Negative)
== END 2018-06-01 00:14 | disposition home or self-care (01) ==
LOC: ERS 21:55
DX: R30.0 Dysuria (principal); M54.9 Dorsalgia, unspecified; R31.9 Hematuria, unspecified; G89.29 Other chronic pain; E11.9 Type 2 diabetes mellitus without complications; I10 Essential (primary) hypertension; F17.210 Nicotine dependence, cigarettes, uncomplicated
CPT/HCPCS: 81003; 81015; 99283

== ENCOUNTER 2018-06-01 23:15 | Emergency (ER) | payer SELFPAY ==
[2018-06-01 23:53] LABS: Bilirubin Large (Negative); Blood, Urine Large (Negative); Clarity TURBID (Clear); Glucose, Urine (Dipstick) 100 mg/dL (Negative); Leukocyte Large (Negative); Nitrite Positive (Negative); Protein, Urine (Dipstick) 100 mg/dL (Neg-Trace); Specific Gravity, Urine 1.025 (1.002-1.036)
[2018-06-01 23:56] LABS: Hyaline Casts/LPF 4-6 HYALINE CAST LPF (0-3 Hyaline); Pathc Cast-AUWi Flag 1.59 (0-2.49); RBC/HPF 21-50 HPF (0-3)
[2018-06-02 00:02] LABS: Bacteria/HPF None Seen HPF (None Seen)
[2018-06-02 00:21] LABS: #Basophils 0.1 thou/uL (0.0-0.2); #Eosinphils 0.3 thou/uL (0.0-0.7); #Lymphocytes 3.2 thou/uL (1.20-3.40); #Monocytes 0.6 thou/uL (0.11-0.59); #Neutrophils 5.1 thou/uL (1.40-6.50); %Basophils 0.7 % (0.0-1.0); %Eosinophils 2.9 % (0.0-10.0); %Lymphocytes 34.4 % (21.0-51.0); %Monocytes 6.7 % (0.0-10.0); %Neutrophils 55.2 % (42.0-75.0); Hemoglobin 14.2 g/dL (14.0-18.0); Mean Corpuscular HGB CONC 35.2 g/dL (32.0-36.0); Mean Corpuscular Hemoglobin 32.8 pg (27.0-31.0); Mean Platelet Volume 6.1 fL (7.4-10.4); Platelet Count 427 thou/uL (130-400); RBC Distribution Width 13.4 % (11.5-14.5); Red Blood Cell (RBC) Count 4.33 mill/uL (4.70-6.10); White Blood Cell (WBC) Count 9.2 thou/uL (4.8-10.8)
[2018-06-02 00:39] LABS: ALT (SGPT) 18 U/L (8-55); AST (SGOT) 14 U/L (5-34); Albumin 4.3 g/dL (3.5-5.0); Alkaline Phosphatase 63 U/L (40-150); Anion Gap 15 mmol/L (10-20); BUN (Urea Nitrogen) 25 mg/dL (8.9-20.6); Bilirubin, Total Less than 0.2 mg/dL (0.2-1.2); Calc. Creatinine Clearance 0 mL/min (70-130); Calcium 9.9 mg/dL (7.8-10.44); Carbon Dioxide 25 mmol/L (22-29); Chloride 106 mmol/L (98-107); Estimated GFR-MDRD 60; Globulin 2.8 g/dL (2.4-3.5); Glucose 119 mg/dL (70-105); Potassium 3.8 mmol/L (3.5-5.1); Protein, Total 7.1 g/dL (6.0-8.3); Sodium 142 mmol/L (136-145)
[2018-06-02] MEDS ORDERED: Ondansetron ODT 4 MG TAB ONE (00:59)
[2018-06-02] MEDS ORDERED: cefTRIAXone\\ROCEPHIN 1 GM VIAL ONE (00:59)
[2018-06-02] MEDS ORDERED: cefTRIAXone\\ROCEPHIN 1 GM in Sodium Chloride 0.9% 100 ML IVPB SCH (01:30)
[2018-06-02] MEDS ORDERED: Ketorolac Tromethamine 30 MG/ML VIAL ONE (02:30)
[2018-06-02] MEDS ORDERED: HYDROcodone/Acetaminophen 5/325 mg Tablet ONE ×2 (05:51→05:55)
--- NOTE | 2018-06-02 14:32 | CT ---
PRELIMINARY REPORT/[facility]/EMERGENTY AFTER-HOURS PROCEDURE CT Abdomen and Pelvis Without Intravenous Contrast CLINICAL HISTORY: 38 years old, male; Pain; Abdominal pain; Flank; Left lower quadrant (llq); Patient HX: Er6; M38 pres ents to ed for hematuria. Pt reports onset of hematuria and left sided flank pain since wednesday. Pt re ports the hematuria has progressively worsened and reports the flank pain has since radiated towards his left lower abdomen. Pt reports difficulty with bowel movements reporting his last bowel m ovement was probably about 4 days ago. TECHNIQUE: Axial computed tomography images of the abdomen and pelvis without intravenous contrast. Coronal reformatted images were created and reviewed. COMPARISON: No relevant prior studies available. FINDINGS: Lung bases: Mild basilar scarring and few punctate peripheral nonspecific nodules. ABDOMEN: Liver: No mass. Gallbladder and bile ducts: No calcified stones. No ductal dilation. Pancreas: No ductal dilation. No mass. Spleen: No mass. Adrenals: No mass. Kidneys and ureters: Mild left hydronephrosis. Otherwise unremarkable. No calculus. No hydronephrosis . Stomach and bowel: No evidence of bowel obstruction. Diverticulosis. Under distended rectosigmoid. Ot herwise fecal loading. PELVIS: Appendix: No findings to suggest acute appendicitis. Bladder: The bladder is decompressed. No stones. Reproductive: No acute findings. Few small prostate calcifications. ABDOMEN and PELVIS: Intraperitoneal space: No acute findings. No free air. No significant fluid collection. Bones/joints: No acute fracture. Bilateral L5 pars defects. Old left seventh rib fracture. Soft tissues: No acute findings. Vasculature: No acute findings. No abdominal aortic aneurysm. Lymph nodes: No lymphadenopathy. IMPRESSION: Mild left hydronephrosis could relate to a recently passed stone or other etiology; recommend clinica l/urinalysis correlation. No nephro/urolithiasis on today's study. Thank you for allowing us to participate in the care of your patient. Dictated and Authenticated by: Abel Beth MD 06/02/2018 1:52 AM Central Time ([place] & [place]) FINAL REPORT CT ABDOMEN WITHOUT CONTRAST PELVIC CT WITHOUT CONTRAST: COMPARISON: 03/09/13. HISTORY: Left flank pain. TECHNIQUE: Abdomen and pelvic CT performed without contrast. Coronal reformatted images are submitted for inter pretation. FINDINGS: This report is in agreement with the preliminary report by [facility]. Mild dilatation of the left intraren al collecting system without associated obstructing calculus. The findings may be due to a recently passed stone. Correlate clinically with laboratory values and urinalysis. No evidence of bowel obstruction. Normal-caliber appendix is noted. There are bilateral pars defects at L5. There is associated anterolisthesis. POS: [facility]
== END 2018-06-02 07:43 | disposition home or self-care (01) ==
LOC: ERS 23:15
DX: N39.0 Urinary tract infection, site not specified (principal); E11.9 Type 2 diabetes mellitus without complications; I10 Essential (primary) hypertension; F17.210 Nicotine dependence, cigarettes, uncomplicated; Z79.899 Other long term (current) drug therapy
CPT/HCPCS: 36415; 74176; 80053; 81003; 81015; 85025; 87086; 96361; 96365; 96375; 96376; J0696; J1885; J2270; J7050; Q0162

== ENCOUNTER 2018-06-16 13:17 | Emergency (ER) | payer SELFPAY ==
[2018-06-16 14:23] LABS: Bilirubin Moderate (Negative); Blood, Urine Large (Negative); Clarity TURBID (Clear); Glucose, Urine (Dipstick) Negative (Negative); Leukocyte Small (Negative); Nitrite Negative (Negative); Protein, Urine (Dipstick) 30 mg/dL (Neg-Trace); Specific Gravity, Urine 1.028 (1.002-1.036); Urobilinogen 0.2 mg/dL (0.2-1.0); pH, Urine 5.5 (5.0-9.0)
[2018-06-16 14:24] LABS: Bacteria/HPF None Seen HPF (None Seen)
[2018-06-16 14:39] LABS: Pathc Cast-AUWi Flag 2.53 (0-2.49); Yeast-AUWi Flag 1402.5 (0-25.0)
[2018-06-16 14:46] LABS: RBC/HPF GREATER THAN 50-TNTC HPF (0-3)
[2018-06-16 14:47] LABS: Hyaline Casts/LPF 0-3 HYALINE CAST LPF (0-3 Hyaline); Other Casts/LPF None Seen LPF (0-3 Hyaline); Yeast-All Forms None Seen HPF (None Seen)
[2018-06-16 14:50] LABS: Crystals/HPF 3+ URIC ACID HPF (Negative)
--- NOTE | 2018-06-16 15:07 | CT ---
CT ABDOMEN AND PELVIS WITHOUT CONTRAST STONE PROTOCOL: HISTORY: Left-sided flank pain. Hematuria and lower abdominal pain. COMPARISON: CT 06/02/18. FINDINGS: Lung bases are clear. Mild increased extracrural fat both posterior hemithoraces. No pericardial ef fusion. The gallbladder is distended. No significant pericystic fluid. No nephroureteral lithiasis or hydroureteral nephrosis. No secondary evidence of a recently passed s tone. Adrenal glands are normal. The spleen, pancreas, and liver have normal noncontrast appearance. The appendix is visualized and appears normal. There are bilateral pars interarticularis defects at L5. IMPRESSION: 1. No acute inflammatory process in the abdomen or pelvis. 2. Normal appendix. 3. No nephroureteral lithiasis or hydroureteral nephrosis. No secondary evidence of recently passed stone. 4. Moderate distention of the gallbladder. Recommend correlation with patient's NPO status. POS: [facility]
== END 2018-06-16 15:18 | disposition home or self-care (01) ==
LOC: ERS 13:17
DX: R31.9 Hematuria, unspecified (principal); R10.12 Left upper quadrant pain; R10.30 Lower abdominal pain, unspecified; E11.9 Type 2 diabetes mellitus without complications; I10 Essential (primary) hypertension; F17.210 Nicotine dependence, cigarettes, uncomplicated; Z79.899 Other long term (current) drug therapy; Z79.84 Long term (current) use of oral hypoglycemic drugs
CPT/HCPCS: 74176; 81003; 81015; 87086

== ENCOUNTER 2018-06-19 15:38 | Emergency (ER) | payer SELFPAY ==
[2018-06-19 16:20] LABS: Hemoglobin 13.3 g/dL (14.0-18.0); Mean Corpuscular HGB CONC 35.4 g/dL (32.0-36.0); Mean Corpuscular Volume 93.2 fL (78.0-98.0); Mean Platelet Volume 6.6 fL (7.4-10.4); Platelet Count 465 thou/uL (130-400); RBC Distribution Width 13.5 % (11.5-14.5); Red Blood Cell (RBC) Count 4.05 mill/uL (4.70-6.10); White Blood Cell (WBC) Count 13.1 thou/uL (4.8-10.8)
[2018-06-19 16:33] LABS: Eosinophils 3 % (0-10); Lymphocytes 12 % (21-51); MDiff Complete? YES; Monocytes 4 % (0-10); Neutrophil 78 % (42-75); PLT Morphology Comment Appears Increased; RBC Morphology Normal; Reactive Lymphocytes 2 % (0-10)
[2018-06-19 16:41] LABS: ALT (SGPT) 18 U/L (8-55); AST (SGOT) 16 U/L (5-34); Albumin 4.1 g/dL (3.5-5.0); Alkaline Phosphatase 60 U/L (40-150); Anion Gap 18 mmol/L (10-20); BUN (Urea Nitrogen) 19 mg/dL (8.9-20.6); Bilirubin, Total 0.2 mg/dL (0.2-1.2); Calc. Creatinine Clearance 0 mL/min (70-130); Carbon Dioxide 23 mmol/L (22-29); Chloride 104 mmol/L (98-107); Estimated GFR-MDRD 56; Globulin 3.1 g/dL (2.4-3.5); Glucose 121 mg/dL (70-105); Potassium 4.3 mmol/L (3.5-5.1); Protein, Total 7.2 g/dL (6.0-8.3); Sodium 141 mmol/L (136-145)
[2018-06-19 16:54] LABS: Bilirubin Negative (Negative); Blood, Urine Large (Negative); Clarity CLOUDY (Clear); Glucose, Urine (Dipstick) Negative (Negative); Leukocyte Small (Negative); Nitrite Negative (Negative); Protein, Urine (Dipstick) 30 mg/dL (Neg-Trace); Specific Gravity, Urine 1.024 (1.002-1.036); Urobilinogen 0.2 mg/dL (0.2-1.0); pH, Urine 6.5 (5.0-9.0)
[2018-06-19 16:58] LABS: Bacteria/HPF None Seen HPF (None Seen); Hyaline Casts/LPF 4-6 HYALINE CAST LPF (0-3 Hyaline); Pathc Cast-AUWi Flag 0.68 (0-2.49); RBC/HPF GREATER THAN 50-TNTC HPF (0-3); Squamous Epithelial 0-3 HPF (0-3)
[2018-06-19 17:09] LABS: Renal Epithelial None Seen HPF (0-3); Transitional Epithelial NONE SEEN HPF (0-3)
[2018-06-19 17:21] LABS: UA Pathologist Review? Unknown Crystals
[2018-06-19 17:24] LABS: Crystals/HPF Other Crystals HPF (Negative)
[2018-06-19] MEDS ORDERED: Tamsulosin HCl 0.4 MG CAP PO SCH (18:15)
[2018-06-19] MEDS ORDERED: HYDROcodone/Acetaminophen 10/325 mg Tablet ONE (18:46)
--- NOTE | 2018-06-19 19:22 | ULT ---
TESTICULAR ULTRASOUND: History: Bilateral testicular pain, more on the left. FINDINGS: Real-time imaging of the right and left testes were performed. The right testicle measures 5 cm, the left testicle 5.1 cm in length. No testicular masses. There is a small 6 mm epididymal cyst on the right and a 3 mm left epididymal cyst. Doppler evaluation with spectral analysis: Normal flow is shown to both testes. IMPRESSION: Essentially unremarkable testicular ultrasound. Tiny epididymal cyst incidentally noted. POS: [facility]
== END 2018-06-19 19:30 | disposition home or self-care (01) ==
LOC: ERS 15:38
DX: N41.9 Inflammatory disease of prostate, unspecified (principal); E11.9 Type 2 diabetes mellitus without complications; I10 Essential (primary) hypertension; F41.9 Anxiety disorder, unspecified; F17.210 Nicotine dependence, cigarettes, uncomplicated; Z79.891 Long term (current) use of opiate analgesic; Z79.84 Long term (current) use of oral hypoglycemic drugs; Z79.899 Other long term (current) drug therapy
CPT/HCPCS: 36415; 51798; 76870; 80053; 80500; 81003; 81015; 84550; 85025; 87086; 93976

== ENCOUNTER 2018-06-27 00:15 | Emergency (ER) | payer SELFPAY ==
[2018-06-27 00:52] LABS: Bilirubin Small (Negative); Blood, Urine Large (Negative); Clarity TURBID (Clear); Glucose, Urine (Dipstick) 100 mg/dL (Negative); Leukocyte Small (Negative); Nitrite Negative (Negative); Protein, Urine (Dipstick) 30 mg/dL (Neg-Trace); Urobilinogen 0.2 mg/dL (0.2-1.0); pH, Urine 5.5 (5.0-9.0)
[2018-06-27 00:55] LABS: Hyaline Casts/LPF 4-6 HYALINE CAST LPF (0-3 Hyaline); Pathc Cast-AUWi Flag 1.01 (0-2.49)
[2018-06-27 00:57] LABS: Yeast-AUWi Flag 381.9 (0-25.0)
[2018-06-27 01:03] LABS: Bacteria/HPF 1+ HPF (None Seen); Crystals/HPF None Seen HPF (Negative); Renal Epithelial None Seen HPF (0-3); Transitional Epithelial NONE SEEN HPF (0-3); Yeast-All Forms None Seen HPF (None Seen)
[2018-06-27] MEDS ORDERED: cefTRIAXone\\ROCEPHIN 2 GM VIAL ONE (01:21)
[2018-06-27 01:51] LABS: #Basophils 0.1 thou/uL (0.0-0.2); #Eosinphils 0.3 thou/uL (0.0-0.7); #Lymphocytes 2.8 thou/uL (1.20-3.40); #Monocytes 0.8 thou/uL (0.11-0.59); #Neutrophils 7.1 thou/uL (1.40-6.50); %Basophils 0.8 % (0.0-1.0); %Eosinophils 2.8 % (0.0-10.0); %Lymphocytes 25.5 % (21.0-51.0); %Monocytes 7.1 % (0.0-10.0); %Neutrophils 63.8 % (42.0-75.0); Hemoglobin 13.5 g/dL (14.0-18.0); Mean Corpuscular Hemoglobin 32.9 pg (27.0-31.0); Mean Corpuscular Volume 93.9 fL (78.0-98.0); Mean Platelet Volume 6.4 fL (7.4-10.4); Platelet Count 444 thou/uL (130-400); RBC Distribution Width 13.5 % (11.5-14.5); Red Blood Cell (RBC) Count 4.12 mill/uL (4.70-6.10); White Blood Cell (WBC) Count 11.1 thou/uL (4.8-10.8)
[2018-06-27 02:01] LABS: Anion Gap 17 mmol/L (10-20); BUN (Urea Nitrogen) 22 mg/dL (8.9-20.6); Calc. Creatinine Clearance 0 mL/min (70-130); Calcium 9.6 mg/dL (7.8-10.44); Carbon Dioxide 21 mmol/L (22-29); Chloride 107 mmol/L (98-107); Estimated GFR-MDRD 59; Glucose 189 mg/dL (70-105); Potassium 4.5 mmol/L (3.5-5.1); Sodium 140 mmol/L (136-145)
[2018-06-27] MEDS ORDERED: Morphine 4 MG/ML VIAL ONE (02:01)
== END 2018-06-27 03:42 | disposition home or self-care (01) ==
LOC: ERS 00:15
DX: N41.9 Inflammatory disease of prostate, unspecified (principal); Z71.6 Tobacco abuse counseling; F17.210 Nicotine dependence, cigarettes, uncomplicated; E78.5 Hyperlipidemia, unspecified; E11.9 Type 2 diabetes mellitus without complications; I10 Essential (primary) hypertension; F41.9 Anxiety disorder, unspecified; Z79.899 Other long term (current) drug therapy
CPT/HCPCS: 80048; 81003; 81015; 85025; 86140; 96361; 96365; 96375; 99406; J0696; J2270

== ENCOUNTER 2018-07-06 01:14 | Emergency (ER) | payer SELFPAY ==
[2018-07-06 02:38] LABS: Bacteria/HPF None Seen HPF (None Seen); Bilirubin Negative (Negative); Blood, Urine Negative (Negative); Clarity TURBID (Clear); Glucose, Urine (Dipstick) Negative (Negative); Leukocyte Negative (Negative); Nitrite Negative (Negative); Protein, Urine (Dipstick) 30 mg/dL (Neg-Trace); RBC/HPF None Seen HPF (0-3); Specific Gravity, Urine 1.031 (1.002-1.036); Urobilinogen 0.2 mg/dL (0.2-1.0); pH, Urine 5.5 (5.0-9.0)
[2018-07-06 02:39] LABS: Pathc Cast-AUWi Flag 2.76 (0-2.49)
[2018-07-06 02:51] LABS: Hyaline Casts/LPF 0-3 HYALINE CAST LPF (0-3 Hyaline)
[2018-07-06 03:01] LABS: Crystals/HPF 4+ URIC ACID HPF (Negative); Other Casts/LPF None Seen LPF (0-3 Hyaline); Oval Fat Bodies/HPF None Seen HPF (None Seen); Renal Epithelial None Seen HPF (0-3); Sperm/HPF None Seen HPF (None Seen); Transitional Epithelial NONE SEEN HPF (0-3); Trichomonas/HPF None Seen HPF (None Seen); Yeast-All Forms None Seen HPF (None Seen)
== END 2018-07-06 02:57 | disposition home or self-care (01) ==
LOC: ERS 01:14
DX: G89.29 Other chronic pain (principal); M54.5 Low back pain; E78.5 Hyperlipidemia, unspecified; E11.9 Type 2 diabetes mellitus without complications; I10 Essential (primary) hypertension; F41.9 Anxiety disorder, unspecified; F17.210 Nicotine dependence, cigarettes, uncomplicated; Z79.899 Other long term (current) drug therapy; Z79.84 Long term (current) use of oral hypoglycemic drugs
CPT/HCPCS: 81003; 81015; 99284

== ENCOUNTER 2018-07-07 16:47 | Emergency (ER) | payer SELFPAY | END 2018-07-07 17:58 | disposition home or self-care (01) | LOC: ERS 16:47 | DX: R31.9 Hematuria, unspecified (principal); E11.9 Type 2 diabetes mellitus without complications; E78.5 Hyperlipidemia, unspecified; F41.9 Anxiety disorder, unspecified; F17.210 Nicotine dependence, cigarettes, uncomplicated; I10 Essential (primary) hypertension; Z87.442 Personal history of urinary calculi | CPT/HCPCS: 99283 ==

== ENCOUNTER 2018-07-22 03:05 | Emergency (ER) | payer SELFPAY ==
[2018-07-22] MEDS ORDERED: Morphine 4 MG/ML VIAL ONE ×2 (03:34→04:45)
[2018-07-22] MEDS ORDERED: Ondansetron ODT 4 MG TAB ONE (03:34)
[2018-07-22] MEDS ORDERED: Ketorolac Tromethamine 30 MG/ML VIAL ONE (03:34)
[2018-07-22 03:42] LABS: Hemoglobin 13.4 g/dL (14.0-18.0); Mean Corpuscular Hemoglobin 33.6 pg (27.0-31.0); Mean Corpuscular Volume 93.3 fL (78.0-98.0); Mean Platelet Volume 6.1 fL (7.4-10.4); Platelet Count 517 thou/uL (130-400); RBC Distribution Width 13.5 % (11.5-14.5); White Blood Cell (WBC) Count 11.5 thou/uL (4.8-10.8)
[2018-07-22 03:55] LABS: ALT (SGPT) 31 U/L (8-55); AST (SGOT) 22 U/L (5-34); Albumin 4.3 g/dL (3.5-5.0); Alkaline Phosphatase 70 U/L (40-150); Anion Gap 18 mmol/L (10-20); BUN (Urea Nitrogen) 21 mg/dL (8.9-20.6); Bilirubin, Total 0.3 mg/dL (0.2-1.2); Calc. Creatinine Clearance 0 mL/min (70-130); Calcium 9.4 mg/dL (7.8-10.44); Carbon Dioxide 21 mmol/L (22-29); Chloride 104 mmol/L (98-107); Estimated GFR-MDRD 83; Glucose 146 mg/dL (70-105); Lipase 32 U/L (8-78); Protein, Total 7.3 g/dL (6.0-8.3); Sodium 139 mmol/L (136-145)
[2018-07-22 03:58] LABS: CKMB 0.6 ng/mL (0-6.6); Troponin I Less than 0.010 ng/mL (< 0.028)
[2018-07-22 04:26] LABS: Band 2 % (5-11); Eosinophils 4 % (0-10); Lymphocytes 33 % (21-51); MDiff Complete? YES; Monocytes 5 % (0-10); Neutrophil 56 % (42-75)
[2018-07-22] MEDS ORDERED: Lidocaine Viscous Sol 2% 15 ml UD Cup ONE (04:45)
[2018-07-22] MEDS ORDERED: Mag-Al 1200 mg/1200 mg/30 ML UDCUP ONE (04:45)
[2018-07-22 05:35] LABS: Bilirubin Negative (Negative); Blood, Urine Negative (Negative); Clarity CLEAR (Clear); Glucose, Urine (Dipstick) Negative (Negative); Leukocyte Negative (Negative); Nitrite Negative (Negative); Protein, Urine (Dipstick) Trace mg/dL (Neg-Trace); Urobilinogen 0.2 mg/dL (0.2-1.0)
[2018-07-22 05:41] LABS: Specific Gravity, Urine 1.057 (1.002-1.036)
[2018-07-22 05:46] LABS: Amphetamine Not Detected (NotDetected); Barbiturates Screen Not Detected (NotDetected); Benzodiazepine Screen Detected (NotDetected); Cocaine Metabolite Screen Detected (NotDetected); Medtox Control Line Valid? VALID (VALID); Medtox Reader # READER 4; Methadone Detected (NotDetected); Methamphetamine Not Detected (NotDetected); Opiate Screen Detected (NotDetected); Oxycodone Screen Not Detected (NotDetected); Phencyclidine (PCP) Not Detected (NotDetected); THC/Cannabinoid Screen Not Detected (NotDetected); Tricyclic Screen Detected (NotDetected)
[2018-07-22] MEDS ORDERED: HYDROcodone/Acetaminophen 10/325 mg Tablet ONE (05:50)
[2018-07-22 05:59] LABS: Troponin I Less than 0.010 ng/mL (< 0.028)
--- NOTE | 2018-07-22 07:54 | RAD ---
SINGLE VIEW OF THE CHEST: COMPARISON: 05/15/18. HISTORY: Chest pain. FINDINGS: Single view of the chest shows a normal sized cardiomediastinal silhouette. There is no evidence of c onsolidation, mass, or pleural effusion. The bones are unremarkable. IMPRESSION: No evidence of acute cardiopulmonary disease. POS: [facility]
--- NOTE | 2018-07-23 20:03 | EKG ---
Test Reason : Blood Pressure : / mmHG Vent. Rate : 086 BPM Atrial Rate : 086 BPM P-R Int : 144 ms QRS Dur : 090 ms QT Int : 378 ms P-R-T Axes : 005 037 030 degrees QTc Int : 452 ms Normal sinus rhythm Normal ECG Confirmed by CAESAR AVENDAÑO ([id number]), pictures editor RISHABH BURLESON ([id number]) on 07/23/2018 8:03:37 PM Referred By: Confirmed By:CAESAR AVENDAÑO
--- NOTE | 2018-07-23 20:16 | EKG ---
Test Reason : CHEST PAIN Blood Pressure : / mmHG Vent. Rate : 104 BPM Atrial Rate : 105 BPM P-R Int : 000 ms QRS Dur : 090 ms QT Int : 356 ms P-R-T Axes : 000 045 -04 degrees QTc Int : 468 ms Accelerated Junctional rhythm Abnormal ECG Confirmed by CAESAR AVENDAÑO ([id number]), design editor RISHABH BURLESON ([id number]) on 07/23/2018 8:15:41 PM Referred By: Confirmed By:CAESAR AVENDAÑO
== END 2018-07-22 07:15 | disposition home or self-care (01) ==
LOC: ERS 03:05
DX: R07.9 Chest pain, unspecified (principal); F14.90 Cocaine use, unspecified, uncomplicated; I10 Essential (primary) hypertension; E78.5 Hyperlipidemia, unspecified; E11.9 Type 2 diabetes mellitus without complications; F41.9 Anxiety disorder, unspecified; F17.210 Nicotine dependence, cigarettes, uncomplicated
CPT/HCPCS: 36415; 71045; 80053; 80306; 81003; 82553; 83690; 83735; 83880; 84484; 85025; 85379; 93005; 96374; 96375; 96376; J1885; J2270; Q0162

== ENCOUNTER 2018-09-11 10:55 | Emergency (ER) | payer SELFPAY ==
[2018-09-11 11:31] LABS: #Basophils 0.1 thou/uL (0.0-0.2); #Eosinphils 0.2 thou/uL (0.0-0.7); #Lymphocytes 2.6 thou/uL (1.20-3.40); #Monocytes 0.5 thou/uL (0.11-0.59); #Neutrophils 4.7 thou/uL (1.40-6.50); %Basophils 1.3 % (0.0-1.0); %Eosinophils 2.8 % (0.0-10.0); %Lymphocytes 31.9 % (21.0-51.0); %Monocytes 5.5 % (0.0-10.0); %Neutrophils 58.5 % (42.0-75.0); Hemoglobin 13.3 g/dL (14.0-18.0); Mean Corpuscular HGB CONC 33.3 g/dL (32.0-36.0); Mean Corpuscular Hemoglobin 31.4 pg (27.0-31.0); Mean Corpuscular Volume 94.3 fL (78.0-98.0); Mean Platelet Volume 6.9 fL (7.4-10.4); Platelet Count 419 thou/uL (130-400); RBC Distribution Width 12.9 % (11.5-14.5); Red Blood Cell (RBC) Count 4.25 mill/uL (4.70-6.10); White Blood Cell (WBC) Count 8.1 thou/uL (4.8-10.8)
[2018-09-11 12:03] LABS: CKMB 1.6 ng/mL (0-6.6); Troponin I Less than 0.010 ng/mL (< 0.028)
[2018-09-11] MEDS ORDERED: Acetaminophen 500 MG TAB ONE (12:05)
[2018-09-11] MEDS ORDERED: Morphine 4 MG/ML VIAL ONE (12:07)
[2018-09-11 12:18] LABS: ALT (SGPT) 43 U/L (8-55); AST (SGOT) 21 U/L (5-34); Albumin 4.6 g/dL (3.5-5.0); Alkaline Phosphatase 63 U/L (40-150); Anion Gap 17 mmol/L (10-20); BUN (Urea Nitrogen) 15 mg/dL (8.9-20.6); Bilirubin, Total 0.4 mg/dL (0.2-1.2); Calc. Creatinine Clearance 0 mL/min (70-130); Calcium 9.5 mg/dL (7.8-10.44); Carbon Dioxide 24 mmol/L (22-29); Chloride 103 mmol/L (98-107); Estimated GFR-MDRD Greater than 90; Globulin 2.9 g/dL (2.4-3.5); Glucose 131 mg/dL (70-105); Protein, Total 7.5 g/dL (6.0-8.3); Sodium 140 mmol/L (136-145)
--- NOTE | 2018-09-11 12:37 | CT ---
HEAD CT WITHOUT CONTRAST: HISTORY: Head injury and syncope. COMPARISON: 08/25/2017. FINDINGS: Slightly limited evaluation due to motion degradation. No parenchymal hemorrhage. No extraaxial hem atoma. No midline shift. Basilar cisterns are patent. Brain volume, age appropriate. Cortical gra y-white matter differentiation is preserved. Ventricles and sulci are patent and symmetric. Mild mucosal thickening of the right maxillary sinus. Mastoid air cells are adequately aerated. Myles varium is intact. IMPRESSION: No acute intracranial process. POS: [facility]
[2018-09-11] MEDS ORDERED: Lidocaine 5% Patch TD SCH (14:30)
--- NOTE | 2018-09-11 14:38 | RAD ---
CHEST 2 VIWES: HISTORY: Syncope. Chest pain. COMPARISON: 05/06/2018. FINDINGS: Normal cardiac silhouette. Pulmonary vessels and hilum are normal. Costophrenic angles are clear. Stable elevation of the right hemidiaphragm. No consolidation or mass. No pneumothorax or osseous a bnormalities. IMPRESSION: No acute cardiopulmonary process. POS: [facility]
--- NOTE | 2018-09-11 14:53 | RAD ---
LUMBAR SPINE 2 VIEWS: COMPARISON: 07/24/2017. HISTORY: Midline spinous process tenderness. FINDINGS: Five lumbar-type vertebral bodies. Vertebral body height is maintained. No fracture. Persistent gr jennifer I anterolisthesis of L5 upon S1 better demonstrated on the previous examination. There does appe ar to be spondylolysis at L5, as noted on the previous exam. IMPRESSION: Spondylolisthesis of L5. There is associated grade I anterolisthesis of L5 upon S1, grossly unchange d when compared to the previous examination. POS: [facility]
--- NOTE | 2018-09-17 13:41 | EKG ---
Test Reason : Blood Pressure : / mmHG Vent. Rate : 085 BPM Atrial Rate : 085 BPM P-R Int : 146 ms QRS Dur : 098 ms QT Int : 374 ms P-R-T Axes : -03 019 020 degrees QTc Int : 445 ms Normal sinus rhythm Normal ECG Confirmed by ISIDORO GARCIA DO ([id number]), telegraph editor MILDRED BURT ([id number]) on 09/17/2018 1:41:34 PM Referred By: Confirmed By:ISIDORO GARCIA DO
== END 2018-09-11 14:45 | disposition home or self-care (01) ==
LOC: ERS 10:55
DX: R55 Syncope and collapse (principal); I10 Essential (primary) hypertension; M54.9 Dorsalgia, unspecified; F17.210 Nicotine dependence, cigarettes, uncomplicated; E78.5 Hyperlipidemia, unspecified; E11.9 Type 2 diabetes mellitus without complications; F41.9 Anxiety disorder, unspecified; Z87.442 Personal history of urinary calculi; Z79.84 Long term (current) use of oral hypoglycemic drugs; Z79.82 Long term (current) use of aspirin; Z79.899 Other long term (current) drug therapy
CPT/HCPCS: 36416; 70450; 71046; 72100; 80053; 82553; 84484; 85025; 93005; 96374; J2270

== ENCOUNTER 2018-10-12 14:58 | Emergency (ER) | payer SELFPAY ==
[2018-10-12] MEDS ORDERED: Ketorolac Tromethamine 60 MG/2 ML VIAL ONE (16:42)
[2018-10-12] MEDS ORDERED: Acetaminophen 500 MG TAB ONE (16:42)
== END 2018-10-12 17:10 | disposition home or self-care (01) ==
LOC: ERS 14:58
DX: M54.5 Low back pain (principal); E78.5 Hyperlipidemia, unspecified; E11.9 Type 2 diabetes mellitus without complications; I10 Essential (primary) hypertension; F41.9 Anxiety disorder, unspecified; F17.210 Nicotine dependence, cigarettes, uncomplicated; Z79.899 Other long term (current) drug therapy; Z79.82 Long term (current) use of aspirin; Z79.84 Long term (current) use of oral hypoglycemic drugs
CPT/HCPCS: 36415; 85652; 96372; J1885

== ENCOUNTER 2018-11-18 23:29 | Emergency (ER) | payer SELFPAY ==
[2018-11-19] MEDS ORDERED: predniSONE 20 MG TAB ONE (00:32)
[2018-11-19] MEDS ORDERED: Albuterol Sulfate 1.25 MG/3 ML NEB ONE (00:32)
[2018-11-19] MEDS ORDERED: Ketorolac Tromethamine 60 MG/2 ML VIAL ONE (00:43)
[2018-11-19 01:38] LABS: Actual Bicarbonate (HCO3a) 22.7 mEq/L (22-28); Analyzer IN Cardio ER; Base Excess (BEa) -3.4 mEq/L (-2.0 to +3.0); CO2 Tension 44.9 mmHg (35.0-45.0); Carboxyhemoglobin (COHb) 1.9 gm% (0.0-3.0); Hemoglobin (Hb) 13.9 g/dL (14.0-18.0); O2 Tension (PaO2) 76.8 mmHg (80.0-100.0); Potassium - ABG Lab 3.82 mmol/L (3.70-5.30); pH, Arterial 7.32 (7.35-7.45)
[2018-11-19] MEDS ORDERED: Lorazepam 2 MG/ML VIAL ONE (01:55)
[2018-11-19 02:40] LABS: ALV-art Gradient 16.805 (0-20); Puncture Site LRA
[2018-11-19 02:54] LABS: #Basophils 0.1 thou/uL (0.0-0.2); #Eosinphils 0.2 thou/uL (0.0-0.7); #Lymphocytes 2.8 thou/uL (1.20-3.40); #Monocytes 0.9 thou/uL (0.11-0.59); #Neutrophils 7.1 thou/uL (1.40-6.50); %Basophils 1.1 % (0.0-1.0); %Eosinophils 1.5 % (0.0-10.0); %Lymphocytes 25.8 % (21.0-51.0); %Monocytes 7.7 % (0.0-10.0); Mean Corpuscular HGB CONC 33.6 g/dL (32.0-36.0); Mean Corpuscular Hemoglobin 30.8 pg (27.0-31.0); Mean Corpuscular Volume 91.5 fL (78.0-98.0); Mean Platelet Volume 6.8 fL (7.4-10.4); Platelet Count 376 thou/uL (130-400); RBC Distribution Width 14.6 % (11.5-14.5); Red Blood Cell (RBC) Count 4.55 mill/uL (4.70-6.10)
[2018-11-19 03:15] LABS: ALT (SGPT) 24 U/L (8-55); AST (SGOT) 22 U/L (5-34); Albumin 4.4 g/dL (3.5-5.0); Alkaline Phosphatase 110 U/L (40-150); Anion Gap 16 mmol/L (10-20); BUN (Urea Nitrogen) 18 mg/dL (8.9-20.6); Bilirubin, Total Less than 0.2 mg/dL (0.2-1.2); Calc. Creatinine Clearance 0 mL/min (70-130); Calcium 9.6 mg/dL (7.8-10.44); Carbon Dioxide 24 mmol/L (22-29); Chloride 106 mmol/L (98-107); Estimated GFR-MDRD 82; Globulin 3.7 g/dL (2.4-3.5); Glucose 307 mg/dL (70-105); Potassium 4.2 mmol/L (3.5-5.1); Protein, Total 8.1 g/dL (6.0-8.3); Sodium 142 mmol/L (136-145)
[2018-11-19] MEDS ORDERED: Magnesium 2 GM/50 ML BAG (IN WATER) ONE (04:07)
[2018-11-19] MEDS ORDERED: Acetaminophen 500 MG TAB ONE (04:49)
--- NOTE | 2018-11-19 10:35 | RAD ---
ONE VIEW CHEST: HISTORY: Pain. COMPARISON: 07/22/2018. FINDINGS: Normal cardiac silhouette. Diminished lung volumes likely due to poor inspiratory effort. No consol idation or mass. No pleural effusion. No pneumothorax or osseous abnormalities. IMPRESSION: Diminished lung volumes. No acute cardiopulmonary process. POS: [facility]
== END 2018-11-19 05:43 | disposition home or self-care (01) ==
LOC: ERS 23:29
DX: R09.1 Pleurisy (principal); R06.2 Wheezing; E78.5 Hyperlipidemia, unspecified; E11.9 Type 2 diabetes mellitus without complications; I10 Essential (primary) hypertension; Z87.442 Personal history of urinary calculi; F41.9 Anxiety disorder, unspecified; F17.210 Nicotine dependence, cigarettes, uncomplicated; Z79.899 Other long term (current) drug therapy
CPT/HCPCS: 36415; 71045; 80053; 82805; 83880; 84484; 85025; 93005; 94760; 96365; 96372; 96375; J1885; J2060; J7506

== ENCOUNTER 2018-12-29 11:01 | Emergency (ER) | payer SELFPAY ==
--- NOTE | 2018-12-29 12:12 | RAD ---
PA AND LATERAL CHEST: Date: 12/29/18 HISTORY: Cough. FINDINGS: Heart size is borderline. There is slight elevation of the right hemidiaphragm. The lungs are clear o f any infiltrative process. IMPRESSION: No active intrathoracic disease. POS: [facility]
[2018-12-29] MEDS ORDERED: predniSONE 20 MG TAB ONE (12:15)
== END 2018-12-29 14:17 | disposition home or self-care (01) ==
LOC: ERS 11:01
DX: J20.9 Acute bronchitis, unspecified (principal); E78.5 Hyperlipidemia, unspecified; E11.9 Type 2 diabetes mellitus without complications; I10 Essential (primary) hypertension; F41.9 Anxiety disorder, unspecified; F17.210 Nicotine dependence, cigarettes, uncomplicated; Z79.899 Other long term (current) drug therapy; Z79.84 Long term (current) use of oral hypoglycemic drugs
CPT/HCPCS: 71046; 94640; J7506; J7620

== ENCOUNTER 2019-01-17 09:24 | Emergency (ER) | payer SELFPAY ==
--- NOTE | 2019-01-17 11:37 | RAD ---
2 VIEWS CHEST: Date: 01/17/19 COMPARISON: 12/29/18. HISTORY: Cough. FINDINGS: Two views of the chest show a normal sized cardiomediastinal silhouette. Bilateral perihilar fullness is seen. No deonte consolidation or pleural effusion seen. IMPRESSION: Perihilar fullness may be secondary to reactive airway disease or atypical infection. POS: [facility]
[2019-01-17] MEDS ORDERED: Ibuprofen 800 MG TAB ONE (12:18)
[2019-01-17] MEDS ORDERED: Acetaminophen 500 MG TAB ONE (12:18)
== END 2019-01-17 13:09 | disposition home or self-care (01) ==
LOC: ERS 09:24
DX: R05 Cough (principal); E78.5 Hyperlipidemia, unspecified; E11.9 Type 2 diabetes mellitus without complications; I10 Essential (primary) hypertension; F41.9 Anxiety disorder, unspecified; F17.210 Nicotine dependence, cigarettes, uncomplicated; Z87.442 Personal history of urinary calculi; Z79.84 Long term (current) use of oral hypoglycemic drugs; Z79.899 Other long term (current) drug therapy
CPT/HCPCS: 71046

== ENCOUNTER 2019-05-15 13:22 | Emergency (ER) | payer SELFPAY | END 2019-05-15 14:10 | disposition home or self-care (01) | LOC: ERS 13:22 | DX: M25.512 Pain in left shoulder (principal); E78.5 Hyperlipidemia, unspecified; E11.9 Type 2 diabetes mellitus without complications; I10 Essential (primary) hypertension; F41.9 Anxiety disorder, unspecified; F17.210 Nicotine dependence, cigarettes, uncomplicated; Z79.82 Long term (current) use of aspirin; Z79.84 Long term (current) use of oral hypoglycemic drugs; Z79.899 Other long term (current) drug therapy | CPT/HCPCS: 99283 ==

== ENCOUNTER 2019-05-18 09:30 | Emergency (ER) | payer SELFPAY ==
--- NOTE | 2019-05-18 10:53 | RAD ---
Radiograph left knee 4 views: HISTORY: 39-year-old male status post traumatic injury to left knee FINDINGS: Soft tissue swelling at the suprapatellar region and anterior to the tibial tubercle. No fracture, or any other osseous abnormality. No DJD. IMPRESSION: 1. Normal bones. 2. Anterior soft tissue acute, traumatic contusions.
== END 2019-05-18 11:25 | disposition home or self-care (01) ==
LOC: ERS 09:30
DX: S80.02XA Contusion of left knee, initial encounter (principal); F41.9 Anxiety disorder, unspecified; E78.5 Hyperlipidemia, unspecified; E11.9 Type 2 diabetes mellitus without complications; I10 Essential (primary) hypertension; F17.210 Nicotine dependence, cigarettes, uncomplicated; Z79.899 Other long term (current) drug therapy; Z79.84 Long term (current) use of oral hypoglycemic drugs; Z79.82 Long term (current) use of aspirin; W22.8XXA Striking against or struck by other objects, initial encounter

== ENCOUNTER 2019-06-04 07:43 | Emergency (ER) | payer SELFPAY ==
[2019-06-04 08:38] LABS: Actual Bicarbonate (HCO3a) 28.1 mEq/L (22-28); Analyzer IN Cardio ER; Base Excess (BEa) 0.4 mEq/L (-2.0 to +3.0); CO2 Tension 59.4 mmHg (35.0-45.0); Calcium, Ionized 1.28 mmol/L (1.12-1.30); Hemoglobin (Hb) 13.1 g/dL (14.0-18.0); O2 Tension (PaO2) 85.7 mmHg (80.0-100.0); Potassium - ABG Lab 4.26 mmol/L (3.70-5.30); pH, Arterial 7.29 (7.35-7.45)
--- NOTE | 2019-06-04 08:41 | CT ---
CT Brain WO Con: 06/04/2019 8:10 AM CLINICAL HISTORY: Fall. IMAGING TECHNIQUE: Multiple CT images were obtained of the brain without IV contrast. COMPARISON: CT the brain without contrast dated September 11, 2018 FINDINGS: Infarct: No acute infarct evident. Hemorrhage: None.. Hydrocephalus: None.. Basal cisterns: Normal.. Cerebral parenchyma: Normal.. Midline shift: None.. Cerebellum: Normal. Brainstem: Normal. OTHER: Calvarium: Intact.. Visualized Paranasal sinuses: Clear.. Extracranial soft tissues:Normal. IMPRESSION: No acute intracranial abnormality.
--- NOTE | 2019-06-04 08:42 | RAD ---
Chest AP view INDICATION: Fall with chest pain COMPARISON: November 19, 2018 FINDINGS: Lungs:Mild right basilar atelectasis Cardiac silhouette pulmonary vasculature:Stable moderate cardiomegaly Pleural spaces:No pleural effusion or pneumothorax is demonstrated. Upper abdomen:Stable elevation of the right hemidiaphragm Osseous structures: No acute osseous abnormality. Additional findings:None. IMPRESSION: No acute cardiopulmonary abnormality.
[2019-06-04 08:48] LABS: #Basophils 0.1 thou/uL (0.0-0.2); #Eosinphils 0.1 thou/uL (0.0-0.7); #Lymphocytes 2.1 thou/uL (1.20-3.40); #Monocytes 0.6 thou/uL (0.11-0.59); #Neutrophils 9.2 thou/uL (1.40-6.50); %Basophils 0.8 % (0.0-1.0); %Eosinophils 0.7 % (0.0-10.0); %Lymphocytes 17.3 % (21.0-51.0); %Monocytes 4.8 % (0.0-10.0); %Neutrophils 76.4 % (42.0-75.0); Hemoglobin 12.2 g/dL (14.0-18.0); Mean Corpuscular HGB CONC 31.6 g/dL (32.0-36.0); Mean Corpuscular Hemoglobin 29.1 pg (27.0-31.0); Mean Corpuscular Volume 92.1 fL (78.0-98.0); Mean Platelet Volume 7.1 fL (7.4-10.4); Platelet Count 415 thou/uL (130-400); RBC Distribution Width 14.1 % (11.5-14.5); Red Blood Cell (RBC) Count 4.21 mill/uL (4.70-6.10); White Blood Cell (WBC) Count 12.1 thou/uL (4.8-10.8)
[2019-06-04 08:56] LABS: Prothrombin Time 12.7 SEC (12.0-14.7)
[2019-06-04 09:00] LABS: Puncture Site RRA
[2019-06-04 09:01] LABS: D-Dimer Test Less than 0.27 *mcg/mL (0.27-0.43)
[2019-06-04 09:02] LABS: PTT 22.3 SEC (22.9-36.1)
[2019-06-04] MEDS ORDERED: Lidocaine 1% PF 5 ML VIAL ONE (09:04)
--- NOTE | 2019-06-04 09:07 | CT ---
CT FACIAL BONES: Date: 06/04/19 INDICATION: Trauma. Injury to face. FINDINGS: Nasal bones appear intact. Orbits appear intact. Lamina papyracea intact. Zygoma intact. The paranasal sinuses are aerated. Ther e is mild mucosal edema in the floor of the right maxillary antrum which is probably chronic. Maxilla appears intact. The mandible is intact. IMPRESSION: No evidence of facial bone fracture identified. POS: [facility]
[2019-06-04 09:09] LABS: ALT (SGPT) 34 U/L (8-55); AST (SGOT) 29 U/L (5-34); Albumin 4.4 g/dL (3.5-5.0); Alkaline Phosphatase 132 U/L (40-150); Anion Gap 17 mmol/L (10-20); BUN (Urea Nitrogen) 13 mg/dL (8.9-20.6); Bilirubin, Total 0.2 mg/dL (0.2-1.2); CK (CPK) 46 U/L (30-200); Calc. Creatinine Clearance 0 mL/min (70-130); Carbon Dioxide 26 mmol/L (22-29); Chloride 96 mmol/L (98-107); Estimated GFR-MDRD Greater than 90; Glucose 454 mg/dL (70-105); Potassium 4.3 mmol/L (3.5-5.1); Protein, Total 7.4 g/dL (6.0-8.3); Sodium 135 mmol/L (136-145)
[2019-06-04] MEDS ORDERED: Adacel (T-DAP) 0.5 ML SYRINGE ONE (09:23)
[2019-06-04 09:41] LABS: Acetaminophen Less than 6.0 mcg/mL (10.0-30.0); Alcohol Less than 10 mg/dL (Less than 10); Salicylate Less than 8.0 mg/dL (15.0-30.0)
[2019-06-04 10:17] LABS: Amphetamine Not Detected (NotDetected); Barbiturates Screen Not Detected (NotDetected); Benzodiazepine Screen Not Detected (NotDetected); Cocaine Metabolite Screen Detected (NotDetected); Medtox Control Line Valid? VALID (VALID); Medtox Reader # READER 4; Methadone Not Detected (NotDetected); Methamphetamine Not Detected (NotDetected); Opiate Screen Not Detected (NotDetected); Oxycodone Screen Not Detected (NotDetected); Phencyclidine (PCP) Not Detected (NotDetected); THC/Cannabinoid Screen Not Detected (NotDetected); Tricyclic Screen Not Detected (NotDetected)
== END 2019-06-04 11:00 | disposition home or self-care (01) ==
LOC: ERS 07:43
DX: S01.21XA Laceration without foreign body of nose, initial encounter (principal); E11.9 Type 2 diabetes mellitus without complications; I10 Essential (primary) hypertension; E78.5 Hyperlipidemia, unspecified; F41.9 Anxiety disorder, unspecified; F17.210 Nicotine dependence, cigarettes, uncomplicated; Z79.82 Long term (current) use of aspirin; Z79.899 Other long term (current) drug therapy; Z79.84 Long term (current) use of oral hypoglycemic drugs; W18.30XA Fall on same level, unspecified, initial encounter
CPT/HCPCS: 12011; 70450; 70486; 71045; 80053; 80306; 80307; 82550; 82805; 84484; 85025; 85379; 85610; 85730; 90471; 90715; 93005; 94640; J2001; J7620

== ENCOUNTER 2019-06-14 11:09 | Emergency (ER) | payer SELFPAY ==
--- NOTE | 2019-06-14 12:37 | RAD ---
Left knee 3 views: 06/14/2019 COMPARISON none available HISTORY: Knee pain and swelling FINDINGS: No fracture or dislocation. No radiopaque foreign body or subcutaneous gas. No knee joint e ffusion. IMPRESSION: No acute findings.
--- NOTE | 2019-06-14 12:39 | RAD ---
2 views left tibia/fibula: 06/14/2019 COMPARISON: None HISTORY: Pain FINDINGS: No fracture or dislocation. There is soft tissue swelling lateral to the lateral malleolus. IMPRESSION: Lateral soft tissue swelling noted distally. No associated fracture or dislocation seen.
== END 2019-06-14 12:49 | disposition home or self-care (01) ==
LOC: ERS 11:09
DX: M79.662 Pain in left lower leg (principal); E78.5 Hyperlipidemia, unspecified; E11.9 Type 2 diabetes mellitus without complications; M19.90 Unspecified osteoarthritis, unspecified site; F17.210 Nicotine dependence, cigarettes, uncomplicated; Z87.442 Personal history of urinary calculi; Z79.82 Long term (current) use of aspirin; Z79.84 Long term (current) use of oral hypoglycemic drugs; Z79.899 Other long term (current) drug therapy
CPT/HCPCS: 36415; 85379

== ENCOUNTER 2019-12-04 08:31 | Emergency (ER) | payer SELFPAY | END 2019-12-04 09:41 | disposition home or self-care (01) | LOC: ERS 08:31 | DX: L02.416 Cutaneous abscess of left lower limb (principal); F17.210 Nicotine dependence, cigarettes, uncomplicated | CPT/HCPCS: 10060 ==

== ENCOUNTER 2020-05-06 19:10 | Inpatient (IN) | payer OTHER, SELFPAY ==
[~2020-05-06 19:10] MED LIST changes: -ISOVUE-370 76%-LOCM 1 ML ONE; +Iopamidol-370 76% 500 ML 1 ML ONE
[2020-05-06] MEDS ORDERED: Acetaminophen 500 MG TAB ONE ×2 (19:33→23:56)
[2020-05-06 20:06] LABS: Hemoglobin 14.5 g/dL (14.0-18.0); Mean Corpuscular HGB CONC 33.8 g/dL (32.0-36.0); Mean Corpuscular Hemoglobin 32.7 pg (27.0-31.0); Mean Corpuscular Volume 96.9 fL (78.0-98.0); Mean Platelet Volume 8.5 fL (7.4-10.4); Platelet Count 205 thou/uL (130-400); RBC Distribution Width 11.9 % (11.5-14.5); Red Blood Cell (RBC) Count 4.44 mill/uL (4.70-6.10); White Blood Cell (WBC) Count 8.1 thou/uL (4.8-10.8)
[2020-05-06 20:20] LABS: ALT (SGPT) 19 U/L (8-55); AST (SGOT) 25 U/L (5-34); Albumin 3.6 g/dL (3.5-5.0); Alkaline Phosphatase 80 U/L (40-110); Anion Gap 15 mmol/L (10-20); BUN (Urea Nitrogen) 10 mg/dL (8.9-20.6); Bilirubin, Total 0.2 mg/dL (0.2-1.2); Calc. Creatinine Clearance 0 mL/min (70-130); Calcium 8.5 mg/dL (7.8-10.44); Carbon Dioxide 20 mmol/L (22-29); Chloride 104 mmol/L (98-107); Estimated GFR-MDRD Greater than 90; Globulin 3.2 g/dL (2.4-3.5); Glucose 270 mg/dL (70-105); Potassium 3.5 mmol/L (3.5-5.1); Protein, Total 6.8 g/dL (6.0-8.3); Sodium 135 mmol/L (136-145)
[2020-05-06 20:23] LABS: Band 20 % (5-11); Lymphocytes 5 % (21-51); MDiff Complete? YES; Metamyelocyte 1 % (0-0); Neutrophil 74 % (42-75); Platelet Morphology Comment Appears Adequate; RBC Morphology Normal
[2020-05-06 20:51] LABS: Bacteria/HPF None Seen HPF (None Seen); Bilirubin 1+ (Negative); Blood, Urine Negative (Negative); Clarity Clear (Clear); Glucose, Urine (Dipstick) 500 mg/dL (Negative); Leukocyte Negative Leu/uL (Negative); Mucous/LPF 1+ LPF (<2+); Nitrite Negative (Negative); Protein, Urine (Dipstick) 300 mg/dL (Neg-Trace); RBC/HPF 0-3 HPF (0-3); Renal Epithelial 0-3 HPF (None Seen); Squamous Epithelial 0-3 HPF (0-3); WBC/HPF 0-3 HPF (0-3)
--- NOTE | 2020-05-06 22:13 | CT ---
CT ANGIOGRAM THORAX WITH IV CONTRAST AND 3-D RECONSTRUCTIONS CLINICAL INDICATION: Fever, body aches, chills, generalized weakness. Diffuse back pain. Positive COVID 19 COMPARISON: 09/12/2017 FINDINGS: Pulmonary arteries: There is suboptimal timing of the contrast bolus, but no filling defects are seen in the central or segmental pulmonary arteries to suggest a pulmonary embolus. The subsegmental pulmonary arteries are not well opacified. Aorta: The aorta is normal in caliber without evidence of an aortic dissection. Lungs: There are scattered patchy groundglass and parenchymal density predominantly in a peripheral d istribution which can be seen with viral pneumonitis. No pleural effusion is seen. Mediastinum: Few mildly prominent perihilar lymph nodes are seen. No enlarged mediastinal lymph nodes are present by CT size criteria. Thyroid gland: Within normal limits where visualized. Osseous structures: No acute process. Chest wall: No abnormality visualized. Upper abdomen: Within normal limits for phase of imaging. IMPRESSION: 1. Peripherally located patchy parenchymal densities and groundglass densities within the lungs bilat erally which is in a distribution and appearance suggestive of viral pneumonitis. 2. No evidence of a pulmonary embolus involving the central or segmental pulmonary arteries.
[2020-05-06] MEDS ORDERED: cefTRIAXone\\ROCEPHIN 2 GM VIAL ONE (22:31)
[2020-05-06] MEDS ORDERED: Azithromycin 500 MG VIAL ONE (22:31)
[2020-05-06] MEDS ORDERED: Enoxaparin Sodium 100 MG/ML SYRINGE ONE (22:31)
--- NOTE | 2020-05-06 23:15 | PDOC.HHP ---
Hospitalist HPI - History of Present Illness COVID 19+, borderline hypoxia History of Present Illness: Patient with PMH of HTN and DM presents to the ED for evaluation of fever, chills, body aches, productive cough, shortness of breath and back/pleuritic type pain of several weeks progression. Tells me that his main issue is his back pain. Described as sharp in nature and radiating across his back at level of lower rib margin. Tells me that his shortness of breath is mild but does exacerbate with exertion. Continues to spike fevers. In the ED he is found to have low normal O2 sats in the 90s. Non toxic appearing and in no obvious respiratory distress. Chest imaging reveals bilateral infiltrates suggestive of viral PNA. Hospitalist ROS - Review of Systems Constitutional: reports: fever, chills, sweats, weakness, malaise Respiratory: reports: cough, shortness of breath, SOB with excertion, sputum Cardiovascular: reports: chest pain Gastrointestinal: denies: abdominal pain Genitourinary: denies: dysuria Musculoskeletal: reports: back pain - Exam General Appearance: NAD, awake alert Eye: PERRL ENT: normocephalic atraumatic Neck: supple, no JVD Heart: RRR, no murmur, no gallops Respiratory - other findings: Bilateral rhonchi Gastrointestinal: soft, non-tender, non-distended Skin: normal turgor Neurological: cranial nerve grossly intact Musculoskeletal: normal tone Psychiatric: normal affect Hospitalist Results - Labs Result Diagrams: 05/07/20 04:31 05/07/20 04:31 Lab results: WBC 8.1 thou/uL (4.8-10.8) 05/06/20 19:50 Hgb 14.5 g/dL (14.0-18.0) 05/06/20 19:50 Hct 43.0 % (42.0-52.0) 05/06/20 19:50 MCV 96.9 fL (78.0-98.0) 05/06/20 19:50 Plt Count 205 thou/uL (130-400) 05/06/20 19:50 Band Neuts % (Manual) 20 % (5-11) H 05/06/20 19:50 Sodium 135 mmol/L (136-145) L 05/06/20 19:50 Potassium 3.5 mmol/L (3.5-5.1) 05/06/20 19:50 Chloride 104 mmol/L (98-107) 05/06/20 19:50 Carbon Dioxide 20 mmol/L (22-29) L 05/06/20 19:50 BUN 10 mg/dL (8.9-20.6) 05/06/20 19:50 Creatinine 0.91 mg/dL (0.7-1.3) 05/06/20 19:50 Glucose 270 mg/dL (70-105) H 05/06/20 19:50 Lactic Acid 1.3 mmol/L (0.5-2.2) 05/06/20 19:50 Calcium 8.5 mg/dL (7.8-10.44) 05/06/20 19:50 Total Bilirubin 0.2 mg/dL (0.2-1.2) 05/06/20 19:50 AST 25 U/L (5-34) 05/06/20 19:50 ALT 19 U/L (8-55) 05/06/20 19:50 Alkaline Phosphatase 80 U/L (40-110) 05/06/20 19:50 Serum Total Protein 6.8 g/dL (6.0-8.3) 05/06/20 19:50 Albumin 3.6 g/dL (3.5-5.0) 05/06/20 19:50 Urine Ketones 80 mg/dL (Negative) A 05/06/20 20:35 Urine Blood Negative (Negative) 05/06/20 20:35 Urine Nitrite Negative (Negative) 05/06/20 20:35 Ur Leukocyte Esterase Negative Mary/uL (Negative) 05/06/20 20:35 Urine RBC 0-3 HPF (0-3) 05/06/20 20:35 Urine WBC 0-3 HPF (0-3) 05/06/20 20:35 Ur Squamous Epith Cells 0-3 HPF (0-3) 05/06/20 20:35 Urine Bacteria None Seen HPF (None Seen) 05/06/20 20:35 - Radiology Interpretation Other Status: image reviewed by me (Chest imaging suggestive of viral PNA) Hospitalist H&P A/P - Plan Plan: Problem List 1. COVID19 Pneumonia 2. Back pain 3. History of HTN 4. History of DM Assessment and Plan 1. COVID19 Pneumonia - admit patient for further monitoring - no respiratory distress/non toxic appearing - low normal saturations in the 90s - still febrile in the 102-103s - continue with close monitoring of hemodynamics - antitussives and Tylenol PRN - hold off on IV ABXs and steroids for now - give gentle IVFs - ID service has been consulted 2. Back pain - likely pleuritic pain in setting of multifocal pneumonia - continue with Tylenol PRN 3. History of HTN - continue with HTN 4. History of DM - continue with metformin DVT PPX: Lovenox FULL CODE
[2020-05-07] MEDS ORDERED: Sodium Chloride 0.9% 1,000 ML IV SCH (00:19)
[2020-05-07] MEDS ORDERED: Ondansetron PF 4 MG/2 ML Vial IVP PRN (00:19)
[2020-05-07] MEDS ORDERED: Ondansetron ODT 4 MG TAB SL PRN (00:19)
[2020-05-07] MEDS ORDERED: Acetaminophen 500 MG TAB PO PRN (00:54)
[2020-05-07] MEDS: Morphine 2 MG/ML SYRINGE SLOW IVP PRN ×6 (01:05→22:29)
[2020-05-07] MEDS ORDERED: Guaifenesin DM 100-10/5 ML UDCUP PO PRN (01:50)
[2020-05-07] MEDS: Sodium Chloride 0.9% 1,000 ML IV SCH ×2 (02:29→13:52)
[2020-05-07] MEDS ORDERED: Ibuprofen 200 MG TAB PO SCH (03:45)
[2020-05-07 04:48] LABS: #Lymphocytes 1.3 thou/uL (1.20-3.40); #Monocytes 0.2 thou/uL (0.11-0.59); #Neutrophils 6.1 thou/uL (1.40-6.50); %Basophils 0.2 % (0.0-1.0); %Eosinophils 0.1 % (0.0-10.0); %Lymphocytes 16.5 % (21.0-51.0); %Monocytes 2.8 % (0.0-10.0); %Neutrophils 80.4 % (42.0-75.0); Hemoglobin 13.3 g/dL (14.0-18.0); Mean Corpuscular HGB CONC 31.9 g/dL (32.0-36.0); Mean Corpuscular Hemoglobin 30.9 pg (27.0-31.0); Mean Platelet Volume 8.5 fL (7.4-10.4); Platelet Count 228 thou/uL (130-400); RBC Distribution Width 11.8 % (11.5-14.5); Red Blood Cell (RBC) Count 4.29 mill/uL (4.70-6.10); White Blood Cell (WBC) Count 7.6 thou/uL (4.8-10.8)
[2020-05-07 05:11] LABS: Anion Gap 13 mmol/L (10-20); BUN (Urea Nitrogen) 6 mg/dL (8.9-20.6); Calc. Creatinine Clearance 187 mL/min (70-130); Calcium 8.1 mg/dL (7.8-10.44); Carbon Dioxide 23 mmol/L (22-29); Chloride 104 mmol/L (98-107); Estimated GFR-MDRD Greater than 90; Glucose 200 mg/dL (70-105); Potassium 3.5 mmol/L (3.5-5.1); Sodium 136 mmol/L (136-145)
[2020-05-07] MEDS: metFORMIN 500 MG TAB PO SCH ×2 (07:54→21:11)
[2020-05-07] MEDS: Lisinopril 10 MG TAB PO SCH (07:54)
[2020-05-07] MEDS: Acetaminophen 325 MG TAB PO PRN ×3 (07:55→18:03)
[2020-05-07] MEDS: Enoxaparin Sodium 40 MG/0.4 ML SYRINGE SC SCH ×2 (08:22→21:11)
[2020-05-07] MEDS ORDERED: Enoxaparin Sodium 40 MG/0.4 ML SYRINGE SC SCH (09:00)
[2020-05-07] MEDS ORDERED: Dexamethasone 4 MG TAB PO SCH (13:45)
[2020-05-07] MEDS ORDERED: Lorazepam 2 MG/ML VIAL SLOW IVP SCH (15:45)
[2020-05-07] MEDS ORDERED: Lidocaine 5% Patch TD SCH (15:45)
[2020-05-07] MEDS: Guaifenesin DM 100-10/5 ML UDCUP PO SCH ×2 (15:51→21:11)
--- NOTE | 2020-05-07 17:09 | PDOC.HOSPP ---
- Subjective Encounter Date: 05/07/20 Encounter Time: 16:00 Subjective: talk to the pt over the phone, significant cough, says back hurts with coughing, [on IV morphine, talk to RN, he is getting q4H on time] - Objective Vital Signs & Weight: Vital Signs (12 hours) Temp Pulse Resp BP Pulse Ox 05/07/20 12:16 102.2 F H 94 22 H 128/81 94 L 05/07/20 08:05 100.0 F H 88 19 120/67 94 L Weight Admit Weight 228 lb 1.6 oz Weight 228 lb 1.6 oz Result Diagrams: 05/07/20 04:31 05/07/20 04:31 Additional Labs: Accuchecks 05/07/20 12:15 POC Glucose 183 H Hospitalist ROS - Medication Medications: Active Medications Generic Name Dose Route Start Last Admin Trade Name Freq PRN Reason Stop Dose Admin Acetaminophen 650 mg 05/07/20 01:50 05/07/20 13:16 Tylenol PO 650 mg Q4H PRN Administration Headache/Fever/Mild Pain (1-3) Enoxaparin Sodium 40 mg 05/07/20 09:00 05/07/20 08:22 Lovenox SC Not Given BID SARAH Guaifenesin/Dextromethorphan 15 ml 05/07/20 17:00 05/07/20 15:51 Robitussin Dm PO 15 ml Q4HR SARAH Administration Sodium Chloride 1,000 mls @ 75 mls/hr 05/07/20 02:00 05/07/20 13:52 Normal Saline 0.9% IV 1,000 mls .[id number] SARAH Administration Lidocaine 1 patch 05/07/20 15:45 05/07/20 15:52 Lidoderm 5% Patch TD 05/08/20 04:00 1 patch NOW SARAH Administration Lisinopril 10 mg 05/07/20 09:00 05/07/20 07:54 Zestril PO 10 mg DAILY SARAH Administration Metformin HCl 500 mg 05/07/20 09:00 05/07/20 07:54 Glucophage PO 500 mg BID SARAH Administration Morphine Sulfate 2 mg 05/07/20 00:54 05/07/20 14:00 Morphine SLOW IVP 2 mg Q4H PRN Administration Moderate to Severe Pain (6-10) Sodium Chloride 10 ml 05/07/20 09:00 05/07/20 07:55 Flush - Normal Saline IVF Not Given Q12HR SARAH Hosp A/P - Plan COVID19 Pneumonia - antitussives and Tylenol PRN - hold off on IV ABXs and steroids for now -Dr. Stafford following with us. -on low dose steroid -high CRP -arian 93% w.. 2li O2. 2. Back pain, prob.. pleuritic pain - likely pleuritic pain in the setting of multifocal pneumonia - morphine, lidocaine patch 3. History of HTN -cw acei, optimal 4. History of DM - continue with metformin lovenox BID
[2020-05-07] MEDS ORDERED: Non-Formulary Item 1 EACH in Sodium Chloride 0.9% 250 ML 210 ML IV SCH (18:00)
[2020-05-07] MEDS ORDERED: HumaLOG 300 UNITS/3 ML VIAL SC PRN (19:21)
[2020-05-07] MEDS ORDERED: Dextrose 50% Abboject 50 ML SYRINGE SLOW IVP PRN (19:21)
[2020-05-07] MEDS ORDERED: Dextrose 5% in Water 1,000 ML IV PRN (19:21)
--- NOTE | 2020-05-07 20:17 | CON ---
DATE OF CONSULTATION: 05/07/2020 REASON FOR CONSULTATION: COVID pneumonia. HISTORY OF PRESENT ILLNESS: A 40-year-old who last time I saw was in 2017 with a history of hypertension and obesity. At that time, he developed bronchospasm with dyspnea and this is the last admission until now. He works at [employer] with the [employer] service and about a month before he developed fever. He went to get checked for COVID, it was negative and subsequently on , about 5 or 6 days ago, he developed fever, chills and sweats. He had quite a bit of myalgias and chest pain and has started coughing intensely. He came on May 06 after having tested positive 2 days before for COVID 19. INITIAL FINDINGS: BP 130/67, pulse 84, respirations 22, temperature 100.6, and his O2 saturations were 90 to room air and then 97 on 2 L nasal cannula O2. GENERAL: On exam, the patient appeared to be in some distress. He was tachycardic. LUNG: Examination was described as normal. INITIAL LAB FINDINGS: Also included white cell count 8.1, hemoglobin 14.5, platelets 205, 20% bands. D-dimer 0.57. Sodium 135, creatinine 0.91. Liver profile normal. Albumin 3.6. Urinalysis with 0-3 wbc's. IMAGING: The patient had a chest CT, which showed typical findings for COVID, but no pulmonary embolism. He is currently receiving cough medicine and mostly symptomatic medication. The thing that bothers him the most is the dyspnea, the cough, the chest pain and myalgias. He has had no diarrhea. No vomiting. No nausea. No abdominal pain, no genitourinary symptoms. No skin disorder. PAST MEDICAL HISTORY: Hypertension, obesity, asthma/COPD, type 2 diabetes, degenerative joint disease. SURGICAL HISTORY: Laminectomy, lumbar. ALLERGIES: NONE. SOCIAL HISTORY: Works at [employer]. . Current smoker, 1-2 cigarettes every other day. No other drug use. FAMILY HISTORY: Noncontributory. PHYSICAL EXAMINATION: VITAL SIGNS: T-max 103.4, now 102.2, BP 120/80, pulse 94, respirations 19-22, O2 saturation 94. SKIN: Normal peripheral IV access. Voiding in the toilet. LYMPH: No lymphadenopathy. HEENT: Ocular movements conjugate. Oral cavity normal. NECK: Supple. LUNGS: Symmetric clear breath sounds except for the very bases where there are some faint inspiratory crackles symmetrically on the distributed right and left side. HEART: S1 and S2. No S3 or S4. No murmurs. Regular rate. ABDOMEN: Soft, not distended or tender. No ascites. No bladder distention. : No genital abnormalities. No edema. EXTREMITIES: Pulses 1+ in dorsalis pedis. NEUROLOGIC: Nonfocal including cognitive function. LABORATORY DATA: White cell count is now at 7.6, hemoglobin 13, platelets 228, 80% neutrophils. Ferritin was 233. CRP 28.62. D-dimer 0.57. ASSESSMENT: Type 2 diabetes. Obesity. Hypertension. COVID pneumonia requiring oxygen supplementation, meets criteria for severe COVID pneumonia. We will start him on remdesivir and add Decadron 6 mg daily. Decadron has been shown by a randomized control trial in [place] to decrease mortality by a 3rd in patients with severe COVID and more severe patients have the larger benefit. The number needed to treat to save one life is eight, which is quite remarkable. This study has not yet been published, but the findings are based on a large trial, which is probably conducted by a reputable organization in [place], but we will go ahead and get started on that. Job ID: [id number]
[2020-05-08] MEDS: Guaifenesin DM 100-10/5 ML UDCUP PO SCH ×7 (00:30→21:35)
[2020-05-08] MEDS: Morphine 2 MG/ML SYRINGE SLOW IVP PRN ×4 (02:48→21:36)
[2020-05-08] MEDS: Acetaminophen 325 MG TAB PO PRN ×3 (03:01→21:36)
[2020-05-08] MEDS ORDERED: Lidocaine Patch Removal 1 EACH TOP SCH (04:00)
[2020-05-08] MEDS: HumaLOG 300 UNITS/3 ML VIAL SC PRN ×3 (06:04→17:55)
[2020-05-08] MEDS: metFORMIN 500 MG TAB PO SCH ×2 (08:41→16:14)
[2020-05-08] MEDS: Dexamethasone 4 MG TAB PO SCH (08:41)
[2020-05-08] MEDS: Lisinopril 10 MG TAB PO SCH (08:43)
[2020-05-08] MEDS: Enoxaparin Sodium 40 MG/0.4 ML SYRINGE SC SCH ×2 (08:43→21:36)
[2020-05-08] MEDS: Sodium Chloride 0.9% 1,000 ML IV SCH ×2 (08:44→22:19)
[2020-05-08] MEDS ORDERED: metFORMIN 500 MG TAB PO SCH ×2 (09:00→10:15)
--- NOTE | 2020-05-08 15:54 | PDOC.HOSPP ---
- Subjective Encounter Date: 05/08/20 Encounter Time: 15:00 Subjective: cough is less, pleuritic pain is less, yellow thick phlegm; O2 improving 96% w.. 2 li O2. - Objective Vital Signs & Weight: Vital Signs (12 hours) Temp Pulse Resp BP Pulse Ox 05/08/20 12:15 98.9 F 105 H 20 157/93 H 96 05/08/20 09:15 98.5 F 93 22 H 157/95 H 93 L 05/08/20 06:12 98.9 F Weight Admit Weight 228 lb 1.6 oz Weight 228 lb 1.6 oz I&O: 05/07/20 05/08/20 05/09/20 06:59 06:59 06:59 Intake Total 1780 Output Total 1550 Balance 230 Result Diagrams: 05/07/20 04:31 05/07/20 04:31 Additional Labs: Accuchecks 05/08/20 05/07/20 05/07/20 05:19 21:23 18:19 POC Glucose 228 H 228 H 217 H Hospitalist ROS - Medication Medications: Active Medications Generic Name Dose Route Start Last Admin Trade Name Freq PRN Reason Stop Dose Admin Acetaminophen 650 mg 05/07/20 01:50 05/08/20 11:52 Tylenol PO 650 mg Q4H PRN Administration Headache/Fever/Mild Pain (1-3) Dexamethasone 6 mg 05/08/20 08:00 05/08/20 08:41 Decadron PO 6 mg QAM-WM SARAH Administration Enoxaparin Sodium 40 mg 05/07/20 09:00 05/08/20 08:43 Lovenox SC 40 mg BID SARAH Administration Guaifenesin/Dextromethorphan 15 ml 05/07/20 17:00 05/08/20 11:52 Robitussin Dm PO 15 ml Q4HR SARAH Administration Sodium Chloride 1,000 mls @ 75 mls/hr 05/07/20 02:00 05/08/20 08:44 Normal Saline 0.9% IV 1,000 mls .[id number] SARAH Administration Insulin Human Lispro 0 units 05/07/20 19:21 05/08/20 12:08 Humalog SC 3 unit .MILD SLIDING SCALE PRN Administration Mild Correctional Scale Insulin Human Lispro 0 units 05/07/20 19:21 05/07/20 22:30 Humalog SC 2 unit .BEDTIME SLIDING SC PRN Administration Bedtime Correctional Scale Lisinopril 10 mg 05/07/20 09:00 05/08/20 08:43 Zestril PO 10 mg DAILY SARAH Administration Morphine Sulfate 2 mg 05/07/20 00:54 05/08/20 14:33 Morphine SLOW IVP 2 mg Q4H PRN Administration Moderate to Severe Pain (6-10) Sodium Chloride 10 ml 05/07/20 09:00 05/08/20 08:45 Flush - Normal Saline IVF 10 ml Q12HR SARAH Administration - Exam General Appearance: NAD, awake alert Eye: PERRL ENT: normocephalic atraumatic Neck: supple, symmetric Neurological: no focal deficits Psychiatric: normal affect, normal behavior, A&O x 3 Hosp A/P - Plan COVID19 Pneumonia - antitussives and Tylenol PRN - hold off on IV ABXs and steroids for now -Dr. Stafford following with us. -on low dose steroid -high CRP -sats > 90% w.. 2li O2. 2. Back pain, prob.. pleuritic pain - likely pleuritic pain in the setting of multifocal pneumonia - morphine, lidocaine patch 3. History of HTN -cw acei, optimal 4. History of DM - continue with metformin lovenox BID will po analgesic, slowly wean off IV morphine. cw above mgmt.
[2020-05-08] MEDS: glipiZIDE 5 MG TAB PO SCH (16:13)
[2020-05-08] MEDS: HYDROcodone/Acetaminophen 10/325 mg Tablet PO PRN (16:13)
[2020-05-08] MEDS: Non-Formulary Item 1 EACH in Sodium Chloride 0.9% 250 ML 230 ML IV SCH (17:57)
[2020-05-09] MEDS: HYDROcodone/Acetaminophen 10/325 mg Tablet PO PRN ×4 (01:29→20:20)
[2020-05-09] MEDS: Guaifenesin DM 100-10/5 ML UDCUP PO SCH ×6 (01:35→20:20)
[2020-05-09 05:29] LABS: Hemoglobin A1c 10.7 % (4.0-6.0)
[2020-05-09] MEDS: Morphine 2 MG/ML SYRINGE SLOW IVP PRN (05:55)
[2020-05-09] MEDS: HumaLOG 300 UNITS/3 ML VIAL SC PRN ×2 (06:05→17:56)
[2020-05-09] MEDS: Enoxaparin Sodium 40 MG/0.4 ML SYRINGE SC SCH ×2 (07:51→20:21)
[2020-05-09] MEDS: metFORMIN 500 MG TAB PO SCH ×2 (07:53→17:28)
[2020-05-09] MEDS: glipiZIDE 5 MG TAB PO SCH ×2 (07:53→17:28)
[2020-05-09] MEDS: Dexamethasone 4 MG TAB PO SCH (07:54)
[2020-05-09] MEDS: Lisinopril 10 MG TAB PO SCH (07:54)
[2020-05-09] MEDS ORDERED: Lisinopril 10 MG TAB PO SCH (08:45)
[2020-05-09] MEDS: HumuLIN 70/30 (300 UNITS/3 ML VIAL) SC SCH ×2 (11:28→20:24)
[2020-05-09] MEDS: Lisinopril 20 MG TAB PO SCH (11:29)
[2020-05-09] MEDS: Sodium Chloride 0.9% 1,000 ML IV SCH ×2 (12:23→20:22)
[2020-05-09] MEDS ORDERED: Amlodipine 10 MG TAB PO SCH (13:15)
--- NOTE | 2020-05-09 15:36 | PDOC.HOSPP ---
- Subjective Encounter Date: 05/09/20 Encounter Time: 14:00 Subjective: talk to him over the phone and visited him briefly. cough better, ambulating inside the room., will switch all his pain meds to Po. sats good w.. 2 lit - Objective Vital Signs & Weight: Vital Signs (12 hours) Temp Pulse Resp BP BP Pulse Ox 05/09/20 13:43 78 169/95 H 05/09/20 12:00 156/102 H 96 05/09/20 08:00 98.5 F 70 20 159/72 H 96 Weight Admit Weight 228 lb 1.6 oz Weight 221 lb 12.8 oz I&O: 05/08/20 05/09/20 05/10/20 06:59 06:59 06:59 Intake Total 1780 3220 Output Total 1550 Balance 230 3220 Result Diagrams: 05/07/20 04:31 05/07/20 04:31 Additional Labs: Accuchecks 05/09/20 05/09/20 05/08/20 11:42 06:06 21:45 POC Glucose 165 H 170 H 128 H 05/08/20 05/08/20 16:25 12:06 POC Glucose 256 H 228 H Hospitalist ROS - Medication Medications: Active Medications Generic Name Dose Route Start Last Admin Trade Name Freq PRN Reason Stop Dose Admin Acetaminophen 650 mg 05/07/20 01:50 05/08/20 21:36 Tylenol PO 650 mg Q4H PRN Administration Headache/Fever/Mild Pain (1-3) Hydrocodone Bitart/Acetaminophen 1 tab 05/09/20 13:03 05/09/20 14:03 [place] 10/325 PO 1 tab Q4H PRN Administration Pain Dexamethasone 6 mg 05/08/20 08:00 05/09/20 07:54 Decadron PO 6 mg QAM-WM SARAH Administration Enoxaparin Sodium 40 mg 05/07/20 09:00 05/09/20 07:51 Lovenox SC 40 mg BID SARAH Administration Glipizide 5 mg 05/08/20 16:30 05/09/20 07:53 Glucotrol PO 5 mg BID-AC SARAH Administration Guaifenesin/Dextromethorphan 15 ml 05/07/20 17:00 05/09/20 13:43 Robitussin Dm PO 15 ml Q4HR SARAH Administration Sodium Chloride 1,000 mls @ 75 mls/hr 05/07/20 02:00 05/09/20 12:23 Normal Saline 0.9% IV Not Given .[id number] SARAH Non-Formulary Medication 1 250 mls @ 250 mls/hr 05/08/20 18:00 05/08/20 17:57 each/ Sodium Chloride IV 05/11/20 18:59 250 mls 1800 SARAH Administration Insulin Human Isoph/Insulin Regular 10 units 05/09/20 09:00 05/09/20 11:28 Humulin 70/30 SC 10 unit BID SARAH Administration Insulin Human Lispro 0 units 05/07/20 19:21 05/09/20 06:05 Humalog SC 2 unit .MILD SLIDING SCALE PRN Administration Mild Correctional Scale Insulin Human Lispro 0 units 05/07/20 19:21 05/07/20 22:30 Humalog SC 2 unit .BEDTIME SLIDING SC PRN Administration Bedtime Correctional Scale Lisinopril 40 mg 05/09/20 09:00 05/09/20 11:29 Zestril PO Not Given DAILY SARAH Metformin HCl 1,000 mg 05/08/20 17:00 05/09/20 07:53 Glucophage PO 1,000 mg BID-WM SARAH Administration Sodium Chloride 10 ml 05/07/20 09:00 05/09/20 07:51 Flush - Normal Saline IVF 10 ml Q12HR SARAH Administration - Exam General - other findings: seen him briefly -- apeears well, than y'day Respiratory: normal chest expansion Psychiatric: normal affect, normal behavior, A&O x 3 Hosp A/P - Plan COVID19 Pneumonia - antitussives and Tylenol PRN - hold off on IV ABXs and steroids for now -Dr. Stafford following with us. -on low dose steroid -high CRP -sats > 90% w.. 2li O2. 2. Back pain, prob.. pleuritic pain - likely pleuritic pain in the setting of multifocal pneumonia - morphine, lidocaine patch 3. History of HTN -cw acei, optimal - BP high no 17th -- added norvas and inc'd ACEI 4. History of DM uncnt'd -- a1c of 10.7 - continue with metformin -glipizide and insulin lovenox BID will po analgesic, slowly wean off IV morphine.---------> stopped morphine if cw above mgmt. once BG and BP reasonable, and no further acuity, plan for dc with decadron Po to home in 1 to 2 days.
[2020-05-09] MEDS: Non-Formulary Item 1 EACH in Sodium Chloride 0.9% 250 ML 230 ML IV SCH (17:29)
[2020-05-10] MEDS: HYDROcodone/Acetaminophen 10/325 mg Tablet PO PRN ×5 (00:15→22:13)
[2020-05-10] MEDS: Guaifenesin DM 100-10/5 ML UDCUP PO SCH ×6 (00:15→21:54)
[2020-05-10] MEDS: Sodium Chloride 0.9% 1,000 ML IV SCH (05:05)
--- NOTE | 2020-05-10 07:49 | RAD ---
RADIOGRAPH CHEST 1 VIEW: DATE: 05/06/2020 TIME: 7:50 PM Submitted for dictation on 05/10/2020 HISTORY: 40-year-old male with fever and chills. COVID-19 positive. COMPARISON: 06/04/2019 FINDINGS: New finding of multiple small patchy bilateral infiltrates, left greater than right, with regions of small consolidations on the left. No cardiomegaly or pneumothorax. IMPRESSION: Multifocal bilateral infiltrates, left worse than right, consistent with viral pneumonia, especially COVID-19.
[2020-05-10] MEDS: HumuLIN 70/30 (300 UNITS/3 ML VIAL) SC SCH ×3 (09:04→22:18)
[2020-05-10] MEDS: Lisinopril 20 MG TAB PO SCH (09:04)
[2020-05-10] MEDS: Enoxaparin Sodium 40 MG/0.4 ML SYRINGE SC SCH ×2 (09:04→21:54)
[2020-05-10] MEDS: glipiZIDE 5 MG TAB PO SCH ×2 (09:05→16:16)
[2020-05-10] MEDS: Dexamethasone 4 MG TAB PO SCH (09:05)
[2020-05-10] MEDS: Amlodipine 10 MG TAB PO SCH (09:05)
[2020-05-10] MEDS: metFORMIN 500 MG TAB PO SCH ×2 (09:05→16:16)
--- NOTE | 2020-05-10 12:40 | PDOC.HOSPP ---
- Subjective Encounter Date: 05/10/20 Encounter Time: 11:20 Subjective: cough is better- BP and BG slight improvement; repeat inflam'y amrkers to see the trend, on remdesivir, and decadron and sats good, in RA. - Objective Vital Signs & Weight: Vital Signs (12 hours) Temp Pulse Resp BP Pulse Ox 05/10/20 09:20 95 05/10/20 09:15 97.7 F 75 20 153/99 H 95 05/10/20 05:13 97.9 F 73 18 151/92 H 93 L Weight Admit Weight 228 lb 1.6 oz Weight 221 lb 12.8 oz I&O: 05/09/20 05/10/20 05/11/20 06:59 06:59 06:59 Intake Total 3220 2205 480 Output Total 850 Balance 3220 1355 480 Result Diagrams: 05/07/20 04:31 05/07/20 04:31 Additional Labs: Accuchecks 05/10/20 05/10/20 05/09/20 12:22 05:13 20:37 POC Glucose 105 108 139 H 05/09/20 05/09/20 17:39 11:42 POC Glucose 220 H 165 H Hospitalist ROS - Medication Medications: Active Medications Generic Name Dose Route Start Last Admin Trade Name Freq PRN Reason Stop Dose Admin Acetaminophen 650 mg 05/07/20 01:50 05/08/20 21:36 Tylenol PO 650 mg Q4H PRN Administration Headache/Fever/Mild Pain (1-3) Hydrocodone Bitart/Acetaminophen 1 tab 05/09/20 13:03 05/10/20 09:08 [place] 10/325 PO 1 tab Q4H PRN Administration Pain Amlodipine Besylate 10 mg 05/10/20 09:00 05/10/20 09:05 Norvasc PO 10 mg DAILY SARAH Administration Dexamethasone 6 mg 05/08/20 08:00 05/10/20 09:05 Decadron PO 6 mg QAM-WM SARAH Administration Enoxaparin Sodium 40 mg 05/07/20 09:00 05/10/20 09:04 Lovenox SC 40 mg BID SARAH Administration Glipizide 5 mg 05/08/20 16:30 05/10/20 09:05 Glucotrol PO 5 mg BID-AC SARAH Administration Guaifenesin/Dextromethorphan 15 ml 05/07/20 17:00 05/10/20 12:09 Robitussin Dm PO 15 ml Q4HR SARAH Administration Sodium Chloride 1,000 mls @ 75 mls/hr 05/07/20 02:00 05/10/20 05:05 Normal Saline 0.9% IV 1,000 mls .[id number] SARAH Administration Non-Formulary Medication 1 250 mls @ 250 mls/hr 05/08/20 18:00 05/09/20 17:29 each/ Sodium Chloride IV 05/11/20 18:59 250 mls 1800 SARAH Administration Insulin Human Isoph/Insulin Regular 10 units 05/09/20 09:00 05/10/20 09:04 Humulin 70/30 SC 10 unit BID SARAH Administration Insulin Human Lispro 0 units 05/07/20 19:21 05/09/20 17:56 Humalog SC 3 unit .MILD SLIDING SCALE PRN Administration Mild Correctional Scale Insulin Human Lispro 0 units 05/07/20 19:21 05/07/20 22:30 Humalog SC 2 unit .BEDTIME SLIDING SC PRN Administration Bedtime Correctional Scale Lisinopril 40 mg 05/09/20 09:00 05/10/20 09:04 Zestril PO 40 mg DAILY SARAH Administration Metformin HCl 1,000 mg 05/08/20 17:00 05/10/20 09:05 Glucophage PO 1,000 mg BID-WM SARAH Administration Sodium Chloride 10 ml 05/07/20 09:00 05/10/20 10:34 Flush - Normal Saline IVF Not Given Q12HR SARAH - Exam General Appearance: NAD, awake alert General - other findings: looks much better, says 'thanks for all what we do' Eye: PERRL ENT: normocephalic atraumatic Neck: supple Neurological: no focal deficits Psychiatric: A&O x 3 Hosp A/P - Plan COVID19 Pneumonia - antitussives and Tylenol PRN - hold off on IV ABXs and steroids for now -Dr. Stafford following with us. -on low dose steroid -high CRP -sats > 90% w.. 2li O2. 2. Back pain, prob.. pleuritic pain - likely pleuritic pain in the setting of multifocal pneumonia - morphine, lidocaine patch 3. History of HTN -cw acei, optimal - BP high no 17 -- added norvas and inc'd ACEI 4. History of DM uncnt'd -- a1c of 10.7 - continue with metformin -glipizide and insulin lovenox BID will po analgesic, slowly wean off IV morphine.---------> stopped morphine BP and BG slight improvement with above changes; repeat inflam'y markers to see the trend tomorrow, on remdesivir, and decadron and sats good, in RA.
[2020-05-10 13:57] LABS: ALT (SGPT) 40 U/L (8-55); AST (SGOT) 60 U/L (5-34); Albumin 3.6 g/dL (3.5-5.0); Alkaline Phosphatase 87 U/L (40-110); Bilirubin, Direct 0.4 mg/dL (0.1-0.3); Bilirubin, Total 0.5 mg/dL (0.2-1.2); Protein, Total 6.6 g/dL (6.0-8.3)
[2020-05-10 14:12] VITALS: BMI 33.7
[2020-05-10] MEDS: Non-Formulary Item 1 EACH in Sodium Chloride 0.9% 250 ML 230 ML IV SCH (16:55)
[2020-05-11] MEDS: Sodium Chloride 0.9% 1,000 ML IV SCH (01:00)
[2020-05-11] MEDS: Guaifenesin DM 100-10/5 ML UDCUP PO SCH ×4 (03:18→12:40)
[2020-05-11] MEDS: HYDROcodone/Acetaminophen 10/325 mg Tablet PO PRN ×4 (04:38→22:28)
[2020-05-11 05:52] LABS: ALT (SGPT) 48 U/L (8-55); AST (SGOT) 30 U/L (5-34); Albumin 3.3 g/dL (3.5-5.0); Alkaline Phosphatase 88 U/L (40-110); Bilirubin, Direct 0.3 mg/dL (0.1-0.3); Bilirubin, Total 0.4 mg/dL (0.2-1.2); CRP (Inflammatory) 2.42 mg/dL (= or < 0.5); Protein, Total 6.1 g/dL (6.0-8.3)
[2020-05-11] MEDS: HumuLIN 70/30 (300 UNITS/3 ML VIAL) SC SCH ×2 (09:03→22:42)
[2020-05-11] MEDS: Amlodipine 10 MG TAB PO SCH (09:04)
[2020-05-11] MEDS: glipiZIDE 5 MG TAB PO SCH ×2 (09:04→15:46)
[2020-05-11] MEDS: Dexamethasone 4 MG TAB PO SCH (09:05)
[2020-05-11] MEDS: Lisinopril 20 MG TAB PO SCH (09:05)
[2020-05-11] MEDS: metFORMIN 500 MG TAB PO SCH ×2 (09:05→15:47)
[2020-05-11] MEDS: Enoxaparin Sodium 40 MG/0.4 ML SYRINGE SC SCH ×2 (09:07→20:22)
--- NOTE | 2020-05-11 13:34 | PDOC.HOSPP ---
- Subjective Encounter Date: 05/11/20 Encounter Time: 13:32 Subjective: Mr. Saucedo was seen today in follow-up of COVID infection. He says he feels ok. He only feels the need to use oxygen at night. He denies chest pain shortness of breath, diarrhea, leg pain ect. He says his appetite is beginning to return. - Objective Vital Signs & Weight: Vital Signs (12 hours) Temp Pulse Resp BP BP Pulse Ox 05/11/20 09:20 95 05/11/20 09:17 98.5 F 80 16 151/94 H 95 05/11/20 04:30 98.8 F 71 18 157/97 H 95 Weight Admit Weight 228 lb 1.6 oz Weight 221 lb 12.8 oz I&O: 05/10/20 05/11/20 05/12/20 06:59 06:59 06:59 Intake Total 2205 5039 180 Output Total 850 3400 325 Balance 1355 1639 -145 Result Diagrams: 05/07/20 04:31 05/07/20 04:31 Additional Labs: Accuchecks 05/11/20 05/10/20 05/10/20 05:21 22:07 16:24 POC Glucose 104 118 H 190 H Hospitalist ROS - Medication Medications: Active Medications Generic Name Dose Route Start Last Admin Trade Name Freq PRN Reason Stop Dose Admin Acetaminophen 650 mg 05/07/20 01:50 05/08/20 21:36 Tylenol PO 650 mg Q4H PRN Administration Headache/Fever/Mild Pain (1-3) Hydrocodone Bitart/Acetaminophen 1 tab 05/09/20 13:03 05/11/20 09:08 [place] 10/325 PO 1 tab Q4H PRN Administration Pain Amlodipine Besylate 10 mg 05/10/20 09:00 05/11/20 09:04 Norvasc PO 10 mg DAILY SARAH Administration Dexamethasone 6 mg 05/08/20 08:00 05/11/20 09:05 Decadron PO 6 mg QAM-WM SARAH Administration Enoxaparin Sodium 40 mg 05/07/20 09:00 05/11/20 09:07 Lovenox SC 40 mg BID SARAH Administration Glipizide 5 mg 05/08/20 16:30 05/11/20 09:04 Glucotrol PO 5 mg BID-AC SARAH Administration Guaifenesin/Dextromethorphan 15 ml 05/07/20 17:00 05/11/20 12:40 Robitussin Dm PO Not Given Q4HR SARAH Sodium Chloride 1,000 mls @ 75 mls/hr 05/07/20 02:00 05/11/20 01:00 Normal Saline 0.9% IV 1,000 mls .[id number] SARAH Administration Non-Formulary Medication 1 250 mls @ 250 mls/hr 05/08/20 18:00 05/10/20 16:55 each/ Sodium Chloride IV 05/11/20 18:59 250 mls 1800 SARAH Administration Insulin Human Isoph/Insulin Regular 10 units 05/09/20 09:00 05/11/20 09:03 Humulin 70/30 SC 10 unit BID SARAH Administration Insulin Human Lispro 0 units 05/07/20 19:21 05/09/20 17:56 Humalog SC 3 unit .MILD SLIDING SCALE PRN Administration Mild Correctional Scale Insulin Human Lispro 0 units 05/07/20 19:21 05/07/20 22:30 Humalog SC 2 unit .BEDTIME SLIDING SC PRN Administration Bedtime Correctional Scale Lisinopril 40 mg 05/09/20 09:00 05/11/20 09:05 Zestril PO 40 mg DAILY SARAH Administration Metformin HCl 1,000 mg 05/08/20 17:00 05/11/20 09:05 Glucophage PO 1,000 mg BID-WM SARAH Administration Sodium Chloride 10 ml 05/07/20 09:00 05/11/20 09:06 Flush - Normal Saline IVF Not Given Q12HR SARAH - Exam Eye: PERRL, anicteric sclera Heart: RRR, no murmur, no gallops, no rubs, normal peripheral pulses Respiratory: CTAB, no wheezes, no rales, no ronchi, normal chest expansion Gastrointestinal: soft, non-tender, non-distended, normal bowel sounds, no palpable masses Extremities: no cyanosis, no edema Hosp A/P (1) COVID-19 virus infection Code(s): U07.1 - COVID-19 Status: Acute (2) DM2 (diabetes mellitus, type 2) Status: Chronic (3) HTN (hypertension) Code(s): I10 - ESSENTIAL (PRIMARY) HYPERTENSION Status: Chronic - Plan * COVID -19 infection- he will receive his final dose ot Remdesivir tonight * Clinically he is stable, he was off oxygen when I came to see him * DM- blood glucose is stable * HTN-blood pressure is in acceptable range * Inflammatory markers are beginning to trend down * Likely home tomorrow
[2020-05-11] MEDS ORDERED: Benzonatate 100 MG CAP PO PRN (13:37)
[2020-05-11] MEDS: Acetaminophen 325 MG TAB PO PRN (15:57)
[2020-05-11] MEDS: Non-Formulary Item 1 EACH in Sodium Chloride 0.9% 250 ML 230 ML IV SCH (17:56)
[2020-05-11] MEDS: guaiFENesin ER 600 MG TAB PO SCH (20:22)
[2020-05-12] MEDS: HYDROcodone/Acetaminophen 10/325 mg Tablet PO PRN ×3 (05:34→17:07)
[2020-05-12] MEDS: HumuLIN 70/30 (300 UNITS/3 ML VIAL) SC SCH (08:19)
[2020-05-12] MEDS: guaiFENesin ER 600 MG TAB PO SCH (08:19)
[2020-05-12] MEDS: Lisinopril 20 MG TAB PO SCH (08:19)
[2020-05-12] MEDS: metFORMIN 500 MG TAB PO SCH ×2 (08:20→16:57)
[2020-05-12] MEDS: Enoxaparin Sodium 40 MG/0.4 ML SYRINGE SC SCH (08:20)
[2020-05-12] MEDS: Amlodipine 10 MG TAB PO SCH (08:20)
[2020-05-12] MEDS: Dexamethasone 4 MG TAB PO SCH (08:20)
[2020-05-12] MEDS: glipiZIDE 5 MG TAB PO SCH ×2 (08:20→16:57)
[2020-05-12 13:20] VITALS: BP 136/84; TEMP 98.4
--- NOTE | 2020-05-12 14:38 | PDOC.HOSPP ---
- Subjective Encounter Date: 05/12/20 Encounter Time: 14:37 Subjective: Mr. Saucedo was seen today in follow-up of COVID pneumonia. He does not have any new complaints. He says he feels fine. - Objective Vital Signs & Weight: Vital Signs (12 hours) Temp Pulse Resp BP BP Pulse Ox 05/12/20 11:30 98.4 F 99 18 136/84 95 05/12/20 08:35 93 L 05/12/20 08:30 98.7 F 82 18 141/89 H 93 L 05/12/20 05:46 82 18 93 L Weight Admit Weight 228 lb 1.6 oz Weight 221 lb 12.8 oz I&O: 05/11/20 05/12/20 05/13/20 06:59 06:59 06:59 Intake Total 5039 3449 360 Output Total 3400 2200 725 Balance 1631 1244 -365 Result Diagrams: 05/07/20 04:31 05/07/20 04:31 Additional Labs: Accuchecks 05/12/20 05/11/20 05/11/20 05:42 20:31 15:55 POC Glucose 111 H 176 H 195 H Hospitalist ROS - Medication Medications: Active Medications Generic Name Dose Route Start Last Admin Trade Name Freq PRN Reason Stop Dose Admin Acetaminophen 650 mg 05/07/20 01:50 05/11/20 15:57 Tylenol PO 650 mg Q4H PRN Administration Headache/Fever/Mild Pain (1-3) Hydrocodone Bitart/Acetaminophen 1 tab 05/09/20 13:03 05/12/20 11:43 [place] 10/325 PO 1 tab Q4H PRN Administration Pain Amlodipine Besylate 10 mg 05/10/20 09:00 05/12/20 08:20 Norvasc PO 10 mg DAILY SARAH Administration Benzonatate 100 mg 05/11/20 13:37 05/11/20 15:57 Tessalon PO 100 mg TIDPRN PRN Administration Cough Dexamethasone 6 mg 05/08/20 08:00 05/12/20 08:20 Decadron PO 6 mg QAM-WM SARAH Administration Enoxaparin Sodium 40 mg 05/07/20 09:00 05/12/20 08:20 Lovenox SC 40 mg BID SARAH Administration Glipizide 5 mg 05/08/20 16:30 05/12/20 08:20 Glucotrol PO 5 mg BID-AC SARAH Administration Guaifenesin 600 mg 05/11/20 21:00 05/12/20 08:19 Mucinex PO 600 mg Q12HR SARAH Administration Insulin Human Isoph/Insulin Regular 10 units 05/09/20 09:00 05/12/20 08:19 Humulin 70/30 SC 10 unit BID SARAH Administration Insulin Human Lispro 0 units 05/07/20 19:21 05/09/20 17:56 Humalog SC 3 unit .MILD SLIDING SCALE PRN Administration Mild Correctional Scale Insulin Human Lispro 0 units 05/07/20 19:21 05/07/20 22:30 Humalog SC 2 unit .BEDTIME SLIDING SC PRN Administration Bedtime Correctional Scale Lisinopril 40 mg 05/09/20 09:00 05/12/20 08:19 Zestril PO 40 mg DAILY SARAH Administration Metformin HCl 1,000 mg 05/08/20 17:00 05/12/20 08:20 Glucophage PO 1,000 mg BID-WM SARAH Administration Sodium Chloride 10 ml 05/07/20 09:00 05/12/20 08:19 Flush - Normal Saline IVF 10 ml Q12HR SARAH Administration - Exam Eye: PERRL, anicteric sclera Heart: RRR, no murmur, no gallops, no rubs, normal peripheral pulses Respiratory: CTAB (except for some rales at the bases) Extremities: no cyanosis, no edema Hosp A/P (1) COVID-19 virus infection Code(s): U07.1 - COVID-19 Status: Acute (2) DM2 (diabetes mellitus, type 2) Status: Chronic (3) HTN (hypertension) Code(s): I10 - ESSENTIAL (PRIMARY) HYPERTENSION Status: Chronic - Plan * COVID -19 infection- Clinically much improved * DM- his blood glucose has been a bit on the lower side. He can return to his home regimen
--- NOTE | 2020-05-12 15:44 | DIS ---
DATE OF ADMISSION: 05/06/2020 DATE OF DISCHARGE: 05/12/2020 The patient's primary care physician is at the [facility]. DISCHARGE DISPOSITION: Home. DISCHARGE DIAGNOSES: 1. Acute respiratory failure with hypoxemia. 2. COVID-19 pneumonia. 3. Diabetes mellitus, type 2. 4. Hypertension. 5. Obesity. DISCHARGE MEDICATIONS: 1. Mucinex 600 mg daily. 2. Amlodipine 10 mg daily. 3. Metformin 500 mg twice daily. 4. Lisinopril 10 mg daily. IMAGING DONE DURING THE HOSPITAL STAY: The patient had a CT scan of the chest, demonstrating a peripherally-located patchy parenchymal ground-glass densities within the lungs bilaterally, suggestive of viral pneumonitis. There was no evidence of PE. CODE STATUS: Full code. ALLERGIES: NO KNOWN DRUG ALLERGIES. HOSPITAL COURSE: Mr. Saucedo is a pleasant 40-year-old gentleman, who presented to the emergency room after complaining of increasing shortness of breath and fever. He tested positive for COVID-19 at an outside facility and noticed a worsening in his symptoms. He was admitted and evaluated by ID. He was felt to be a candidate for remdesivir and received the full course. He tolerated the medication without any incidence and improved dramatically over the course of the next couple of days. Inflammatory markers were beginning to trend down and he was weaned completely off supplemental oxygen and was subsequently able to be discharged home. While he was in the hospital, his blood sugars were slightly elevated, and for this reason, he had been started on insulin, but this trend began to williams. His blood sugars began to go back down closer to his baseline. For this reason, we will be sending him home on his previous home medications. The patient was counseled on the need to continue to self quarantine for the next 14 days and to monitor himself for symptoms. He has also been instructed to follow up with his primary care physician as soon as possible within the next 1 to 2 weeks, either in person or virtual visit. Job ID: [id number]
--- NOTE | 2020-05-15 05:06 | PQF ---
Archie Saucedo TONI MD [id number] CLINICAL DOCUMENTATION CLARIFICATION FORM: POST DISCHARGE Addendum to original discharge summary date: ____ Late entry note date: __ DATE:05/15/2020 ATTN:Crow Lowe Please exercise your independent, professional judgment in responding to the clarification form. Clinical indicators are provided on the bottom of this form for your review Please check appropriate box(es): [ X] Sepsis due to Covid 19 infection [ ] Severe sepsis due to Covid 19 infection with Acute Respiratory Failure [ ] Localized infection without sepsis [ ] Other diagnosis [ ] Unable to determine In addition, please specify: Present on Admission (POA): [ X ] Yes [ ] No [ ] Unable to determine For continuity of documentation, please document condition throughout progress notes and discharge summary. Thank You. CLINICAL INDICATORS - SIGNS / SYMPTOMS / LABS Laboratory 05/06 WBC 8.1, Platelet count 205, Band 20, Neutrophils 74, Lactic acid 1.3 Vital signs 05/06 BP BP 116/59, Pu;se 104, Resp 24, Temp 100.6 Vital signs 05/07 Temp 103.4, Pulse 102, Resp 30, BP 126/80 Chest X-ray 04/05 Reveals bilateral infiltrates suggestive of viral Pneumonia ED notes p3 04/05 SIRS Scoring: Yes, pt did meet at least 2 criteria H&P p1 05/06 Dr Saenz presents to ED with fever, chills, body aches, productive cough and back/pleurtic pain H&P p1 05/06 Dr Saenz Covid 19 Pneumonia Discharge summary p1 05/12 Acute respiratory failure with hypoxia RISK FACTORS H&P p1 05/06 - Covid 19 Pneumonia H&P p1 05/06 HTN H&P p1 05/06 DM H&P p1 05/06 Smoker Consult 05/07 Obesity H&P p1 05/06 COPD/Asthma TREATMENTS: JAN 25 IV Zithromax 500 mg JAN 25 IV Rocephin 2gm JAN 25 IVF NS 1L Respiratory panel 05/06 Oxygen 2L Isolation ordered 05/06 Chest X-ray orderd 05/06 ID consult 05/07 Antonio Christie (This form is maintained as a part of the permanent medical record) 2014 [email or web address]. All Rights Reserved [email or web address]
== END 2020-05-12 17:50 | disposition home or self-care (01) | DRG 871 ==
LOC: ERS 19:10 → 2SW 23:10
PROVIDERS: ADMIT Internal Medicine; ATTEND Internal Medicine
PROC: 8E0ZXY6 Isolation (ICD-10-PCS; principal; 2020-05-06)
PROC: 3E0234Z Introduction of Serum, Toxoid and Vaccine into Muscle, Percutaneous Approach (ICD-10-PCS; 2020-05-12)
DX: A41.89 Other specified sepsis (principal); U07.1 COVID-19; J12.89 Other viral pneumonia; J96.01 Acute respiratory failure with hypoxia; J44.0 Chronic obstructive pulmonary disease with (acute) lower respiratory infection; I10 Essential (primary) hypertension; E66.9 Obesity, unspecified; E78.5 Hyperlipidemia, unspecified; M41.9 Scoliosis, unspecified; M16.0 Bilateral primary osteoarthritis of hip; F17.210 Nicotine dependence, cigarettes, uncomplicated; R07.81 Pleurodynia; E11.649 Type 2 diabetes mellitus with hypoglycemia without coma; Z68.33 Body mass index [BMI] 33.0-33.9, adult; Z23 Encounter for immunization; Z79.899 Other long term (current) drug therapy; Z79.84 Long term (current) use of oral hypoglycemic drugs
CPT/HCPCS: 36415; 36416; 71045; 71275; 80048; 80053; 80076; 81003; 81015; 82728; 83036; 83605; 85025; 85379; 86140; 90471; 90732; 96365; 96367; 96372; G0009; J0456; J0696; J1650; J1815; J2060; J2270; J8540; Q9967

== ENCOUNTER 2020-05-22 13:30 | Emergency (ER) | payer OTHER, SELFPAY ==
[2020-05-23 14:27] LABS: SARS-CoV-2 MS2 Positive; SARS-CoV-2 N Gene Positive; SARS-CoV-2 S Gene Positive; SARS-CoV-2 orf1ab Positive
== END 2020-05-22 14:28 | disposition home or self-care (01) ==
LOC: ERS 13:30
DX: U07.1 COVID-19 (principal); E78.5 Hyperlipidemia, unspecified; E11.9 Type 2 diabetes mellitus without complications; M19.90 Unspecified osteoarthritis, unspecified site; F17.210 Nicotine dependence, cigarettes, uncomplicated; Z79.84 Long term (current) use of oral hypoglycemic drugs; Z79.899 Other long term (current) drug therapy
CPT/HCPCS: 87635; 99283; U0003

== ENCOUNTER 2021-05-05 08:27 | Observation (INO) | payer SELFPAY ==
[2021-05-05 09:01] LABS: #Basophils 0.1 thou/uL (0.0-0.2); #Eosinphils 0.3 thou/uL (0.0-0.7); #Lymphocytes 3.6 thou/uL (1.20-3.40); #Monocytes 0.4 thou/uL (0.11-0.59); #Neutrophils 4.4 thou/uL (1.40-6.50); %Basophils 0.8 % (0.0-1.0); %Eosinophils 3.3 % (0.0-10.0); %Lymphocytes 41.2 % (21.0-51.0); %Neutrophils 49.8 % (42.0-75.0); Hemoglobin 17.3 g/dL (14.0-18.0); Mean Corpuscular HGB CONC 34.6 g/dL (32.0-36.0); Mean Corpuscular Hemoglobin 32.8 pg (27.0-31.0); Mean Platelet Volume 7.7 fL (7.4-10.4); Platelet Count 328 thou/uL (130-400); RBC Distribution Width 11.8 % (11.5-14.5); Red Blood Cell (RBC) Count 5.28 mill/uL (4.70-6.10); White Blood Cell (WBC) Count 8.8 thou/uL (4.8-10.8)
[2021-05-05 09:20] LABS: ALT (SGPT) 26 U/L (8-55); AST (SGOT) 14 U/L (5-34); Albumin 4.4 g/dL (3.5-5.0); Alkaline Phosphatase 97 U/L (40-110); Anion Gap 18 mmol/L (10-20); BUN (Urea Nitrogen) 11 mg/dL (8.9-20.6); Bilirubin, Total 0.3 mg/dL (0.2-1.2); Calc. Creatinine Clearance 0 mL/min (70-130); Calcium 9.7 mg/dL (7.8-10.44); Carbon Dioxide 19 mmol/L (22-29); Chloride 102 mmol/L (98-107); Globulin 3.4 g/dL (2.4-3.5); Glucose 443 mg/dL (70-105); Potassium 4.1 mmol/L (3.5-5.1); Protein, Total 7.8 g/dL (6.0-8.3); Sodium 135 mmol/L (136-145)
[2021-05-05] MEDS ORDERED: Nitroglycerin 2% Ointment 1 INCH/1 GM Packet ONE (11:19)
[2021-05-05] MEDS ORDERED: Ketorolac Tromethamine 30 MG/ML VIAL ONE (11:19)
[2021-05-05] MEDS ORDERED: Aspirin Chewable 81 MG TAB ONE (11:19)
[2021-05-05 11:36] LABS: Amphetamine Not Detected (NotDetected); Barbiturates Screen Not Detected (NotDetected); Benzodiazepine Screen Not Detected (NotDetected); Cocaine Metabolite Screen Not Detected (NotDetected); Medtox Control Line Valid? VALID (VALID); Medtox Reader # READER 1; Methadone Not Detected (NotDetected); Methamphetamine Not Detected (NotDetected); Opiate Screen Not Detected (NotDetected); Oxycodone Screen Not Detected (NotDetected); Phencyclidine (PCP) Not Detected (NotDetected); THC/Cannabinoid Screen Not Detected (NotDetected); Tricyclic Screen Not Detected (NotDetected)
[2021-05-05] MEDS ORDERED: Acetaminophen 325 MG TAB PO PRN (12:17)
[2021-05-05] MEDS ORDERED: hydrALAZINE 20 MG/ML VIAL SLOW IVP PRN (12:24)
[2021-05-05] MEDS ORDERED: Dextrose 5% in Water 1,000 ML IV PRN (12:26)
[2021-05-05] MEDS ORDERED: Dextrose 50% Abboject 50 ML SYRINGE SLOW IVP PRN (12:26)
[2021-05-05] MEDS ORDERED: HumaLOG 300 UNITS/3 ML VIAL SC PRN ×2 (12:26)
[2021-05-05 12:49] LABS: Hemoglobin A1c 12.6 % (4.0-6.0)
[2021-05-05 13:06] LABS: Cardiac Risk 8.7 (Less than 4.5); Cholesterol 303 mg/dl (< 200 Desired); HDL Cholesterol 35 mg/dL (>60 Neg Risk); Triglycerides 883 mg/dL (Less than 150)
[2021-05-05 13:07] LABS: Troponin I Less than 0.010 ng/mL (< 0.028)
[2021-05-05] MEDS ORDERED: Lisinopril 10 MG TAB ONE (13:49)
[2021-05-05 15:11] LABS: Troponin I Less than 0.010 ng/mL (< 0.028)
[2021-05-05] MEDS ORDERED: Ibuprofen 800 MG TAB PO PRN (15:48)
[2021-05-05 17:04] VITALS: BMI 34.5
[2021-05-05 17:06] LABS: SARS-CoV-2 PCR by NAA Not Detected (NotDetected)
[2021-05-05] MEDS: metFORMIN 500 MG TAB PO SCH (18:04)
[2021-05-05] MEDS ORDERED: Atorvastatin Calcium 40 MG TAB PO SCH (21:00)
[2021-05-05] MEDS ORDERED: Lidocaine 2% Viscous Solution 10 ML, Aluminum & Magnesium Hydroxide 30 ML SSW SCH (23:15)
[2021-05-06] MEDS: metFORMIN 500 MG TAB PO SCH (07:47)
[2021-05-06] MEDS ORDERED: Lisinopril 20 MG TAB PO SCH (09:00)
[2021-05-06] MEDS ORDERED: HumuLIN 70/30 (300 UNITS/3 ML VIAL) SC SCH (09:00)
[2021-05-06 12:21] VITALS: TEMP 98.6
[2021-05-06 17:21] VITALS: BP 127/78
== END 2021-05-06 18:25 | disposition home or self-care (01) ==
LOC: ERS 08:27 → ERHOLD 12:15 → 2SW 14:32
PROVIDERS: ADMIT Family Medicine; ATTEND Family Medicine
DX: R07.9 Chest pain, unspecified (principal); E11.65 Type 2 diabetes mellitus with hyperglycemia; I10 Essential (primary) hypertension; E78.2 Mixed hyperlipidemia; F17.210 Nicotine dependence, cigarettes, uncomplicated; M16.0 Bilateral primary osteoarthritis of hip; M41.9 Scoliosis, unspecified; Z79.84 Long term (current) use of oral hypoglycemic drugs; Z79.899 Other long term (current) drug therapy; Z20.822 Contact with and (suspected) exposure to COVID-19
CPT/HCPCS: 36415; 36416; 71045; 80053; 80061; 80306; 83036; 83735; 84443; 84484; 85025; 85379; 93005; 93017; 94760; 96374; G0378; J1815; J1885; U0003; U0005

== ENCOUNTER 2021-08-11 15:02 | Emergency (ER) | payer SELFPAY | END 2021-08-11 18:37 | disposition home or self-care (01) | LOC: ERS 15:02 | DX: J34.0 Abscess, furuncle and carbuncle of nose (principal); Z79.899 Other long term (current) drug therapy; Z79.4 Long term (current) use of insulin; E78.5 Hyperlipidemia, unspecified; E11.9 Type 2 diabetes mellitus without complications; I10 Essential (primary) hypertension; F17.210 Nicotine dependence, cigarettes, uncomplicated | CPT/HCPCS: 99283 ==

== ENCOUNTER 2021-12-17 09:35 | Emergency (ER) | payer OTHER, SELFPAY ==
[2021-12-17] MEDS ORDERED: Diazepam 5 MG TAB ONE (11:40)
[2021-12-17] MEDS ORDERED: Xylocaine 1% w/ Epi 1:100K 10 ML VIAL ONE (11:41)
== END 2021-12-17 12:28 | disposition home or self-care (01) ==
LOC: ERS 09:35
DX: L02.214 Cutaneous abscess of groin (principal); L03.314 Cellulitis of groin; I10 Essential (primary) hypertension; E11.9 Type 2 diabetes mellitus without complications; E78.5 Hyperlipidemia, unspecified; F17.210 Nicotine dependence, cigarettes, uncomplicated; Z79.899 Other long term (current) drug therapy; Z79.4 Long term (current) use of insulin
CPT/HCPCS: 10060

== ENCOUNTER 2022-03-24 18:12 | Emergency (ER) | payer SELFPAY | END 2022-03-24 19:09 | disposition home or self-care (01) | LOC: ERS 18:12 | DX: S60.031A Contusion of right middle finger without damage to nail, initial encounter (principal); S60.021A Contusion of right index finger without damage to nail, initial encounter; X58.XXXA Exposure to other specified factors, initial encounter ==

== ENCOUNTER 2022-04-22 11:59 | Inpatient (IN) | payer SELFPAY ==
[2022-04-22] MEDS ORDERED: Lidocaine 1% w/Epinephrine 1:100K 20 ML VIAL ONE (12:47)
[2022-04-22 13:31] LABS: #Basophils 0.1 thou/uL (0.0-0.2); #Eosinphils 0.2 thou/uL (0.0-0.7); #Lymphocytes 2.5 thou/uL (1.20-3.40); #Monocytes 0.7 thou/uL (0.11-0.59); %Basophils 0.4 % (0.0-1.0); %Eosinophils 1.4 % (0.0-10.0); %Lymphocytes 18.8 % (21.0-51.0); %Monocytes 4.9 % (0.0-10.0); %Neutrophils 74.4 % (42.0-75.0); Hemoglobin 16.8 g/dL (14.0-18.0); Mean Corpuscular HGB CONC 33.9 g/dL (32.0-36.0); Mean Corpuscular Hemoglobin 32.3 pg (27.0-31.0); Mean Corpuscular Volume 95.4 fL (78.0-98.0); Mean Platelet Volume 7.6 fL (7.4-10.4); Platelet Count 255 thou/uL (130-400); RBC Distribution Width 11.4 % (11.5-14.5); Red Blood Cell (RBC) Count 5.21 mill/uL (4.70-6.10); White Blood Cell (WBC) Count 13.5 thou/uL (4.8-10.8)
[2022-04-22] MEDS ORDERED: Ondansetron PF 4 MG/2 ML Vial ONE (13:51)
[2022-04-22] MEDS ORDERED: Morphine 4 MG/ML VIAL ONE ×2 (13:51→17:14)
[2022-04-22] MEDS ORDERED: Ketorolac Tromethamine 30 MG/ML VIAL ONE (13:51)
[2022-04-22 14:10] LABS: ALT (SGPT) 29 U/L (8-55); AST (SGOT) 20 U/L (5-34); Albumin 4.2 g/dL (3.5-5.0); Alkaline Phosphatase 95 U/L (40-110); Anion Gap 14 mmol/L (10-20); BUN (Urea Nitrogen) 6 mg/dL (8.9-20.6); Bilirubin, Total 0.7 mg/dL (0.2-1.2); Calc. Creatinine Clearance 0 mL/min (70-130); Calcium 9.5 mg/dL (7.8-10.44); Carbon Dioxide 23 mmol/L (22-29); Chloride 97 mmol/L (98-107); Globulin 3.5 g/dL (2.4-3.5); Glucose 365 mg/dL (70-105); Potassium 4.1 mmol/L (3.5-5.1); Protein, Total 7.7 g/dL (6.0-8.3); Sodium 130 mmol/L (136-145)
[2022-04-22] MEDS ORDERED: Cefepime 2 GM VIAL ONE (15:11)
[2022-04-22] MEDS ORDERED: Vancomycin 1 GM/200 ML BAG ONE (15:11)
[2022-04-22] MEDS ORDERED: Ondansetron ODT 4 MG TAB PO PRN (18:49)
[2022-04-22] MEDS ORDERED: Acetaminophen 325 MG TAB PO PRN (18:49)
[2022-04-22] MEDS ORDERED: Ondansetron PF 4 MG/2 ML Vial IVP PRN (18:49)
[2022-04-22] MEDS ORDERED: Calcium Carbonate 500 MG ChewTAB PO PRN (18:49)
[2022-04-22] MEDS ORDERED: Dextrose 50% Abboject 50 ML SYRINGE SLOW IVP PRN (18:53)
[2022-04-22] MEDS ORDERED: Insulin Regular 300 UNITS/3 ML VIAL SC PRN (18:53)
[2022-04-22] MEDS ORDERED: Dextrose 5% in Water 1,000 ML IV PRN (18:53)
[2022-04-22] MEDS ORDERED: Piperacillin/Tazobactam 3.375 GM in Sodium Chloride 0.9% 100 ML IVPB SCH ×2 (19:00→19:15)
[2022-04-22] MEDS ORDERED: Clindamycin/D5W 900 mg/50 ml Premix Bag ONE (19:11)
[2022-04-22] MEDS ORDERED: Vancomycin HCl 500 MG in Sodium Chloride 0.9% 100 ML IVPB SCH (19:15)
[2022-04-22] MEDS ORDERED: Saccharomyces boulardii 250 MG CAP PO SCH (21:00)
[2022-04-22] MEDS: HYDROcodone/Acetaminophen 5/325 mg Tablet PO PRN (21:22)
[2022-04-22] MEDS: Sodium Chloride 0.9% 1,000 ML IV SCH (21:26)
[2022-04-22] MEDS: Clindamycin/D5W 900 MG in Premix Bag 1 BAG IVPB SCH (21:26)
[2022-04-22] MEDS: Senokot S 8.6-50 MG TAB PO SCH (21:28)
[2022-04-22] MEDS: Insulin Regular 300 UNITS/3 ML VIAL SC PRN (21:29)
[2022-04-22] MEDS: Piperacillin/Tazobactam 3.375 GM in Sodium Chloride 0.9% 100 ML IVPB SCH (23:48)
[2022-04-23] MEDS ORDERED: Morphine 2 MG/ML VIAL SLOW IVP SCH (00:15)
[2022-04-23] MEDS: Sodium Chloride 0.9% 1,000 ML IV SCH ×2 (03:55→08:43)
[2022-04-23] MEDS: Vancomycin 1.5 GRAM/300 ML BAG 1.5 GM in Premix Bag 1 BAG IVPB SCH ×3 (03:55→21:15)
[2022-04-23] MEDS: Insulin Regular 300 UNITS/3 ML VIAL SC PRN (03:58)
[2022-04-23] MEDS: Clindamycin/D5W 900 MG in Premix Bag 1 BAG IVPB SCH ×2 (05:26→15:56)
[2022-04-23] MEDS: Piperacillin/Tazobactam 3.375 GM in Sodium Chloride 0.9% 100 ML IVPB SCH ×2 (06:35→15:57)
[2022-04-23 07:34] LABS: #Eosinphils 0.2 thou/uL (0.0-0.7); #Lymphocytes 1.8 thou/uL (1.20-3.40); #Monocytes 0.5 thou/uL (0.11-0.59); %Basophils 0.5 % (0.0-1.0); %Eosinophils 2.4 % (0.0-10.0); %Lymphocytes 21.4 % (21.0-51.0); %Monocytes 5.5 % (0.0-10.0); %Neutrophils 70.2 % (42.0-75.0); Hemoglobin 14.7 g/dL (14.0-18.0); Mean Corpuscular HGB CONC 34.3 g/dL (32.0-36.0); Mean Corpuscular Hemoglobin 33.1 pg (27.0-31.0); Mean Corpuscular Volume 96.5 fL (78.0-98.0); Mean Platelet Volume 7.6 fL (7.4-10.4); Platelet Count 221 thou/uL (130-400); RBC Distribution Width 11.2 % (11.5-14.5); Red Blood Cell (RBC) Count 4.44 mill/uL (4.70-6.10); White Blood Cell (WBC) Count 8.6 thou/uL (4.8-10.8)
[2022-04-23 07:38] LABS: Hemoglobin A1c 13.6 % (4.0-6.0)
[2022-04-23 07:51] LABS: ALT (SGPT) 20 U/L (8-55); AST (SGOT) 8 U/L (5-34); Albumin 3.5 g/dL (3.5-5.0); Alkaline Phosphatase 75 U/L (40-110); Anion Gap 9 mmol/L (10-20); BUN (Urea Nitrogen) 9 mg/dL (8.9-20.6); Bilirubin, Total 0.6 mg/dL (0.2-1.2); CRP (Inflammatory) 4.78 mg/dL (= or < 0.5); Calc. Creatinine Clearance 188 mL/min (70-130); Calcium 8.4 mg/dL (7.8-10.44); Carbon Dioxide 27 mmol/L (22-29); Chloride 104 mmol/L (98-107); Globulin 2.5 g/dL (2.4-3.5); Glucose 341 mg/dL (70-105); Sodium 136 mmol/L (136-145)
[2022-04-23] MEDS: HYDROcodone/Acetaminophen 5/325 mg Tablet PO PRN (08:42)
[2022-04-23] MEDS: Senokot S 8.6-50 MG TAB PO SCH ×2 (08:42→21:11)
[2022-04-23] MEDS ORDERED: Gabapentin 300 MG CAP PO PRN (08:52)
[2022-04-23] MEDS ORDERED: metFORMIN 500 MG TAB PO SCH (09:00)
[2022-04-23] MEDS ORDERED: HumuLIN 70/30 (300 UNITS/3 ML VIAL) SC SCH (09:00)
[2022-04-23] MEDS ORDERED: Lisinopril 20 MG TAB PO SCH (09:00)
[2022-04-23] MEDS: HumuLIN 70/30 (300 UNITS/3 ML VIAL) SC SCH ×2 (12:02→22:45)
[2022-04-23] MEDS ORDERED: HYDROcodone/Acetaminophen 10/325 mg Tablet PO PRN (12:05)
[2022-04-23] MEDS ORDERED: Morphine 4 MG/ML VIAL SLOW IVP PRN (12:05)
[2022-04-23 12:22] LABS: SARS-CoV-2 PCR by NAA Not Detected (NotDetected)
[2022-04-23] MEDS ORDERED: Clindamycin/D5W 900 mg/50 ml Premix Bag ONE (15:50)
[2022-04-23] MEDS ORDERED: Famotidine/PF 20 mg/2ml Vial ONE (16:07)
[2022-04-23] MEDS ORDERED: HYDROmorphone 0.5 MG/0.5 ML SYRINGE ONE (16:07)
[2022-04-23] MEDS ORDERED: fentaNYL Citrate/PF 100 MCG/2 ML SYRINGE ONE (16:07)
[2022-04-23] MEDS ORDERED: Bupivacaine PF 0.5% 30 ML VIAL ONE (16:10)
[2022-04-23] MEDS ORDERED: Lidocaine 1% w/Epinephrine 1:100K 20 ML VIAL ONE (16:10)
[2022-04-23] MEDS ORDERED: Ibuprofen 600 MG TAB PO PRN (17:08)
[2022-04-23] MEDS ORDERED: traMADol HCl 50 MG TAB PO PRN (17:08)
[2022-04-23] MEDS ORDERED: Acetaminophen 500 MG TAB PO PRN (17:08)
[2022-04-23] MEDS ORDERED: Morphine Sulfate 2 MG/ML SYRINGE SLOW IVP PRN (17:12)
[2022-04-23] MEDS ORDERED: Ondansetron HCl/PF 4 MG/2 ML Vial IVP PRN (17:12)
[2022-04-23] MEDS ORDERED: HYDROmorphone 2 MG/ML VIAL SLOW IVP PRN (17:12)
[2022-04-23] MEDS ORDERED: Meperidine HCl/PF 25 MG/ML VIAL SLOW IVP PRN (17:12)
[2022-04-23] MEDS ORDERED: Promethazine HCl 25 MG/ML VIAL IM PRN (17:12)
[2022-04-23] MEDS ORDERED: PACU-Morphine 4MG/ML VIAL SLOW IVP PRN (17:12)
[2022-04-23] MEDS ORDERED: Promethazine HCl 25 MG/ML VIAL IVPB PRN (17:12)
[2022-04-23] MEDS ORDERED: Fentanyl 100 MCG/2 ML VIAL ONE (17:26)
[2022-04-23] MEDS ORDERED: Saccharomyces boulardii 250 MG CAP PO SCH (19:00)
[2022-04-23 20:17] LABS: Vancomycin, Trough 10.6 ug/mL
[2022-04-23 20:39] VITALS: BP 122/77; TEMP 98.2
[2022-04-23] MEDS ORDERED: Atorvastatin Calcium 40 MG TAB PO SCH (21:00)
[2022-04-23] MEDS ORDERED: Amoxicillin/Potassium Clav 500 MG TAB PO SCH (21:00)
[2022-04-24] MEDS ORDERED: Saccharomyces boulardii 250 MG CAP PO SCH (15:00)
== END 2022-04-23 22:00 | disposition home or self-care (01) | DRG 854 ==
LOC: ERS 11:59 → ERHOLD 16:51 → T4-B 19:46
PROVIDERS: ADMIT Emergency Medicine; ATTEND Emergency Medicine
PROC: 3E03329 Introduction of Other Anti-infective into Peripheral Vein, Percutaneous Approach (ICD-10-PCS; 2022-04-22)
PROC: 0WBM0ZZ Excision of Male Perineum, Open Approach (ICD-10-PCS; principal; 2022-04-23)
DX: A41.9 Sepsis, unspecified organism (principal); L02.215 Cutaneous abscess of perineum; L03.315 Cellulitis of perineum; G96.191 Perineural cyst; Z20.822 Contact with and (suspected) exposure to COVID-19; I10 Essential (primary) hypertension; E11.9 Type 2 diabetes mellitus without complications; E78.5 Hyperlipidemia, unspecified; E66.9 Obesity, unspecified; F17.210 Nicotine dependence, cigarettes, uncomplicated; Z86.16 Personal history of COVID-19; Z68.33 Body mass index [BMI] 33.0-33.9, adult; Z79.84 Long term (current) use of oral hypoglycemic drugs; Z79.4 Long term (current) use of insulin; Z79.899 Other long term (current) drug therapy
CPT/HCPCS: 36415; 36416; 72193; 80053; 80202; 83036; 83605; 85025; 86140; 87040; J0692; J1170; J1815; J1885; J2270; J2405; J2543; J3010; J3370; J3490; J7050; S0020; S0028; U0003; U0005

== ENCOUNTER 2022-04-24 09:34 | Emergency (ER) | payer SELFPAY | END 2022-04-24 10:51 | disposition home or self-care (01) | LOC: ERS 09:34 | DX: Z48.817 Encounter for surgical aftercare following surgery on the skin and subcutaneous tissue (principal); L02.215 Cutaneous abscess of perineum; I10 Essential (primary) hypertension; E11.9 Type 2 diabetes mellitus without complications; E78.5 Hyperlipidemia, unspecified; M19.90 Unspecified osteoarthritis, unspecified site; F17.210 Nicotine dependence, cigarettes, uncomplicated; M41.9 Scoliosis, unspecified; Z87.442 Personal history of urinary calculi; Z79.4 Long term (current) use of insulin; Z79.899 Other long term (current) drug therapy | CPT/HCPCS: 99283 ==

== ENCOUNTER 2022-07-06 07:26 | Emergency (ER) | payer OTHER, SELFPAY | END 2022-07-06 09:30 | disposition home or self-care (01) | LOC: ERS 07:26 | DX: M79.672 Pain in left foot (principal); R20.2 Paresthesia of skin; E11.9 Type 2 diabetes mellitus without complications; I10 Essential (primary) hypertension; F17.210 Nicotine dependence, cigarettes, uncomplicated; Z79.84 Long term (current) use of oral hypoglycemic drugs; Z79.899 Other long term (current) drug therapy | CPT/HCPCS: 99283 ==

== ENCOUNTER 2022-10-24 12:11 | Emergency (ER) | payer OTHER, SELFPAY ==
[2022-10-24] MEDS ORDERED: Aspirin Chewable 81 MG TAB ONE (12:43)
[2022-10-24 12:52] LABS: #Basophils 0.1 thou/uL (0.0-0.2); #Eosinphils 0.3 thou/uL (0.0-0.7); #Lymphocytes 3.5 thou/uL (1.20-3.40); #Monocytes 0.6 thou/uL (0.11-0.59); #Neutrophils 7.2 thou/uL (1.40-6.50); %Basophils 0.6 % (0.0-1.0); %Eosinophils 2.2 % (0.0-10.0); %Lymphocytes 30.4 % (21.0-51.0); %Monocytes 4.8 % (0.0-10.0); %Neutrophils 61.9 % (42.0-75.0); Hemoglobin 16.9 g/dL (14.0-18.0); Mean Corpuscular HGB CONC 34.2 g/dL (32.0-36.0); Mean Corpuscular Hemoglobin 32.2 pg (27.0-31.0); Mean Corpuscular Volume 94.1 fl (78.0-98.0); Mean Platelet Volume 7.5 fL (7.4-10.4); Platelet Count 298 10x3/uL (130-400); RBC Distribution Width 11.9 % (11.5-14.5); Red Blood Cell (RBC) Count 5.23 mill/uL (4.70-6.10); White Blood Cell (WBC) Count 11.6 10x3/uL (4.8-10.8)
[2022-10-24] MEDS ORDERED: Acetaminophen 500 MG TAB ONE (13:04)
[2022-10-24 13:13] LABS: ALT (SGPT) 32 U/L (8-55); AST (SGOT) 15 U/L (5-34); Albumin 4.4 g/dL (3.5-5.0); Alkaline Phosphatase 67 U/L (40-110); Anion Gap 15 mmol/L (10-20); BUN (Urea Nitrogen) 13 mg/dL (8.9-20.6); Bilirubin, Total 0.4 mg/dL (0.2-1.2); Calc. Creatinine Clearance 0 mL/min (70-130); Calcium 9.3 mg/dL (7.8-10.44); Carbon Dioxide 22 mmol/L (22-29); Chloride 102 mmol/L (98-107); Estimated GFR 116; Globulin 3.2 g/dL (2.4-3.5); Glucose 175 mg/dL (70-105); Protein, Total 7.6 g/dL (6.0-8.3); Sodium 135 mmol/L (136-145)
[2022-10-24 15:26] LABS: Bilirubin Negative (Negative); Blood, Urine Negative (Negative); Clarity Clear (Clear); Glucose, Urine (Dipstick) Normal (Negative); Ketone, Urine Negative (Negative); Leukocyte Negative Leu/uL (Negative); Nitrite Negative (Negative); Protein, Urine (Dipstick) Negative (Neg-Trace); Specific Gravity, Urine 1.021 (1.002-1.036); Urobilinogen Normal mg/dL (Less than 2)
== END 2022-10-24 15:44 | disposition left against medical advice (07) ==
LOC: ERS 12:11
DX: R07.9 Chest pain, unspecified (principal); M54.9 Dorsalgia, unspecified; E11.9 Type 2 diabetes mellitus without complications; I10 Essential (primary) hypertension; E78.5 Hyperlipidemia, unspecified; F17.210 Nicotine dependence, cigarettes, uncomplicated
CPT/HCPCS: 36415; 71045; 80053; 81003; 84484; 85025; 93005

== ENCOUNTER 2022-10-31 16:55 | Emergency (ER) | payer SELFPAY ==
[2022-10-31 17:27] LABS: #Basophils 0.1 thou/uL (0.0-0.2); #Eosinphils 0.3 thou/uL (0.0-0.7); #Monocytes 0.5 thou/uL (0.11-0.59); #Neutrophils 5.9 thou/uL (1.40-6.50); %Basophils 0.7 % (0.0-1.0); %Eosinophils 2.7 % (0.0-10.0); %Lymphocytes 30.8 % (21.0-51.0); %Monocytes 5.1 % (0.0-10.0); %Neutrophils 60.8 % (42.0-75.0); Hemoglobin 16.5 g/dL (14.0-18.0); Mean Corpuscular HGB CONC 33.3 g/dL (32.0-36.0); Mean Corpuscular Hemoglobin 31.9 pg (27.0-31.0); Mean Corpuscular Volume 95.6 fl (78.0-98.0); Mean Platelet Volume 7.5 fL (7.4-10.4); Platelet Count 320 10x3/uL (130-400); Red Blood Cell (RBC) Count 5.18 mill/uL (4.70-6.10); White Blood Cell (WBC) Count 9.8 10x3/uL (4.8-10.8)
[2022-10-31 17:50] LABS: ALT (SGPT) 29 U/L (8-55); AST (SGOT) 17 U/L (5-34); Albumin 4.4 g/dL (3.5-5.0); Alkaline Phosphatase 80 U/L (40-110); Anion Gap 15 mmol/L (10-20); BUN (Urea Nitrogen) 12 mg/dL (8.9-20.6); Bilirubin, Total 0.3 mg/dL (0.2-1.2); Calc. Creatinine Clearance 0 mL/min (70-130); Calcium 9.4 mg/dL (7.8-10.44); Carbon Dioxide 24 mmol/L (22-29); Chloride 103 mmol/L (98-107); Estimated GFR 109; Globulin 3.3 g/dL (2.4-3.5); Glucose 271 mg/dL (70-105); Lipase 30 U/L (8-78); Potassium 4.5 mmol/L (3.5-5.1); Protein, Total 7.7 g/dL (6.0-8.3); Sodium 137 mmol/L (136-145)
[2022-10-31] MEDS ORDERED: Aspirin Chewable 81 MG TAB ONE (18:23)
== END 2022-10-31 20:20 | disposition home or self-care (01) ==
LOC: ERS 16:55
DX: R07.89 Other chest pain (principal); E78.5 Hyperlipidemia, unspecified; E11.9 Type 2 diabetes mellitus without complications; I10 Essential (primary) hypertension; F17.210 Nicotine dependence, cigarettes, uncomplicated
CPT/HCPCS: 36415; 71045; 80053; 83690; 84484; 85025; 93005

== ENCOUNTER 2022-12-21 14:41 | Emergency (ER) | payer OTHER, SELFPAY ==
[2022-12-21] MEDS ORDERED: Ketorolac Tromethamine 30 MG/ML VIAL ONE (15:53)
[2022-12-21] MEDS ORDERED: Morphine 4 MG/ML VIAL ONE (15:53)
[2022-12-21] MEDS ORDERED: Methocarbamol 500 MG TAB PO SCH (16:00)
== END 2022-12-21 16:31 | disposition home or self-care (01) ==
LOC: ERS 14:41
DX: M54.50 Low back pain, unspecified (principal); E11.9 Type 2 diabetes mellitus without complications; I10 Essential (primary) hypertension; E78.5 Hyperlipidemia, unspecified; F17.210 Nicotine dependence, cigarettes, uncomplicated
CPT/HCPCS: 96372; 99283; J1885; J2270

== ENCOUNTER 2023-03-05 18:15 | Emergency (ER) | payer OTHER ==
[2023-03-05] MEDS ORDERED: Morphine 4 MG/ML VIAL ONE (19:49)
[2023-03-05] MEDS ORDERED: HYDROcodone/Acetaminophen 10/325 mg Tablet ONE (20:39)
== END 2023-03-05 20:48 | disposition home or self-care (01) ==
LOC: ERS 18:15
DX: G89.29 Other chronic pain (principal); M54.50 Low back pain, unspecified; E78.5 Hyperlipidemia, unspecified; E11.9 Type 2 diabetes mellitus without complications; I10 Essential (primary) hypertension; F17.210 Nicotine dependence, cigarettes, uncomplicated; Z79.4 Long term (current) use of insulin; Z79.899 Other long term (current) drug therapy
CPT/HCPCS: 96372; 99283; J2270

== ENCOUNTER 2023-03-08 08:06 | Emergency (ER) | payer OTHER ==
[2023-03-08] MEDS ORDERED: Diazepam 10 MG/2 ML SYRINGE ONE (09:42)
[2023-03-08] MEDS ORDERED: Ketorolac Tromethamine 30 MG/ML VIAL ONE (09:43)
[2023-03-08] MEDS ORDERED: HYDROcodone/Acetaminophen 5/325 mg Tablet ONE (11:29)
== END 2023-03-08 11:36 | disposition home or self-care (01) ==
LOC: ERS 08:06
DX: M54.41 Lumbago with sciatica, right side (principal); E11.40 Type 2 diabetes mellitus with diabetic neuropathy, unspecified; E78.5 Hyperlipidemia, unspecified; I10 Essential (primary) hypertension; F17.210 Nicotine dependence, cigarettes, uncomplicated; Z79.84 Long term (current) use of oral hypoglycemic drugs
CPT/HCPCS: 96372; 99283; J1885; J3360

== ENCOUNTER 2023-03-13 18:53 | Emergency (ER) | payer OTHER ==
[2023-03-13] MEDS ORDERED: Ketorolac Tromethamine 30 MG/ML VIAL ONE (19:31)
[2023-03-13] MEDS ORDERED: Morphine 4 MG/ML VIAL ONE (19:31)
[2023-03-13] MEDS ORDERED: HYDROcodone/Acetaminophen 10/325 mg Tablet ONE (20:42)
== END 2023-03-13 20:50 | disposition home or self-care (01) ==
LOC: ERS 18:53
DX: G89.29 Other chronic pain (principal); M54.50 Low back pain, unspecified; I10 Essential (primary) hypertension; E11.40 Type 2 diabetes mellitus with diabetic neuropathy, unspecified; M19.90 Unspecified osteoarthritis, unspecified site; E78.00 Pure hypercholesterolemia, unspecified; F17.210 Nicotine dependence, cigarettes, uncomplicated; Z79.4 Long term (current) use of insulin; Z79.84 Long term (current) use of oral hypoglycemic drugs; Z79.899 Other long term (current) drug therapy
CPT/HCPCS: 96372; 99283; J1885; J2270

== ENCOUNTER 2023-03-15 18:46 | Emergency (ER) | payer OTHER | END 2023-03-15 20:51 | disposition home or self-care (01) | LOC: ERS 18:46 | DX: M54.41 Lumbago with sciatica, right side (principal); G89.29 Other chronic pain; E78.5 Hyperlipidemia, unspecified; E11.9 Type 2 diabetes mellitus without complications; I10 Essential (primary) hypertension; F17.210 Nicotine dependence, cigarettes, uncomplicated; Z79.4 Long term (current) use of insulin; Z79.84 Long term (current) use of oral hypoglycemic drugs; Z79.899 Other long term (current) drug therapy | CPT/HCPCS: 99283 ==

== ENCOUNTER 2023-04-03 15:05 | Emergency (ER) | payer OTHER ==
[2023-04-03 15:39] LABS: #Eosinphils 0.2 thou/uL (0.0-0.7); #Monocytes 0.7 thou/uL (0.11-0.59); #Neutrophils 8.4 thou/uL (1.40-6.50); %Basophils 0.3 % (0.0-1.0); %Eosinophils 1.3 % (0.0-10.0); %Lymphocytes 23.8 % (21.0-51.0); %Monocytes 5.4 % (0.0-10.0); %Neutrophils 68.7 % (42.0-75.0); Hemoglobin 16.8 g/dL (14.0-18.0); Mean Corpuscular HGB CONC 33.7 g/dL (32.0-36.0); Mean Corpuscular Hemoglobin 31.1 pg (27.0-31.0); Mean Corpuscular Volume 92.2 fl (78.0-98.0); Mean Platelet Volume 9.7 fL (7.4-10.4); Platelet Count 305 10x3/uL (130-400); RBC Distribution Width 13.2 % (11.5-14.5); White Blood Cell (WBC) Count 12.2 10x3/uL (4.8-10.8)
[2023-04-03 16:01] LABS: ALT (SGPT) 34 U/L (8-55); AST (SGOT) 13 U/L (5-34); Albumin 4.7 g/dL (3.5-5.0); Alkaline Phosphatase 82 U/L (40-110); Anion Gap 15 mmol/L (10-20); BUN (Urea Nitrogen) 12 mg/dL (8.9-20.6); Bilirubin, Total 0.5 mg/dL (0.2-1.2); Calc. Creatinine Clearance 0 mL/min (70-130); Calcium 10.5 mg/dL (7.8-10.44); Carbon Dioxide 25 mmol/L (22-29); Chloride 97 mmol/L (98-107); Estimated GFR 110; Globulin 3.1 g/dL (2.4-3.5); Glucose 293 mg/dL (70-105); Lipase 14 U/L (8-78); Potassium 4.6 mmol/L (3.5-5.1); Protein, Total 7.8 g/dL (6.0-8.3); Sodium 132 mmol/L (136-145)
[2023-04-03] MEDS ORDERED: Morphine 4 MG/ML VIAL ONE (17:03)
[2023-04-03] MEDS ORDERED: Aspirin Chewable 81 MG TAB ONE (17:04)
[2023-04-03] MEDS ORDERED: Nitroglycerin 0.4 MG TAB 1 EACH ONE (17:04)
[2023-04-03] MEDS ORDERED: Ondansetron PF 4 MG/2 ML Vial ONE (17:04)
[2023-04-03 17:32] LABS: Bilirubin Negative (Negative); Blood, Urine Negative (Negative); Clarity Clear (Clear); Glucose, Urine (Dipstick) Greater than 1000 mg/dL (Negative); Ketone, Urine Negative (Negative); Leukocyte Negative Leu/uL (Negative); Nitrite Negative (Negative); Protein, Urine (Dipstick) Negative (Neg-Trace); Specific Gravity, Urine 1.027 (1.002-1.036); Urobilinogen Normal mg/dL (Less than 2)
== END 2023-04-03 19:02 | disposition home or self-care (01) ==
LOC: ERS 15:05
DX: R07.89 Other chest pain (principal); M54.9 Dorsalgia, unspecified; N20.0 Calculus of kidney; D72.829 Elevated white blood cell count, unspecified; E78.5 Hyperlipidemia, unspecified; I10 Essential (primary) hypertension; E11.40 Type 2 diabetes mellitus with diabetic neuropathy, unspecified; F17.210 Nicotine dependence, cigarettes, uncomplicated; Z79.84 Long term (current) use of oral hypoglycemic drugs; Z79.899 Other long term (current) drug therapy; Z79.4 Long term (current) use of insulin
CPT/HCPCS: 36415; 71045; 74176; 80053; 81003; 83690; 84484; 85025; 93005; 94760; 96374; 96375; J2270; J2405

== ENCOUNTER 2023-06-15 15:45 | Emergency (ER) | payer OTHER ==
[~2023-06-15 15:45] MED LIST changes: -Iopamidol-370 76% 500 ML 1 ML ONE; +Iopamidol-370 76% 500 ML MDV (1 ML CHARGE) ONE
[2023-06-15 16:44] LABS: #Basophils 0.1 thou/uL (0.0-0.2); #Eosinphils 0.1 thou/uL (0.0-0.7); #Monocytes 0.5 thou/uL (0.11-0.59); #Neutrophils 6.5 thou/uL (1.40-6.50); %Basophils 0.6 % (0.0-1.0); %Eosinophils 1.2 % (0.0-10.0); %Lymphocytes 25.8 % (21.0-51.0); %Monocytes 5.3 % (0.0-10.0); %Neutrophils 66.6 % (42.0-75.0); Hemoglobin 16.4 g/dL (14.0-18.0); Mean Corpuscular HGB CONC 34.6 g/dL (32.0-36.0); Mean Corpuscular Hemoglobin 31.8 pg (27.0-31.0); Mean Platelet Volume 10.1 fL (7.4-10.4); Platelet Count 325 10x3/uL (130-400); RBC Distribution Width 12.1 % (11.5-14.5); Red Blood Cell (RBC) Count 5.15 mill/uL (4.70-6.10); White Blood Cell (WBC) Count 9.8 10x3/uL (4.8-10.8)
[2023-06-15 17:09] LABS: ALT (SGPT) 33 U/L (8-55); AST (SGOT) 22 U/L (5-34); Albumin 4.3 g/dL (3.5-5.0); Alkaline Phosphatase 81 U/L (40-110); Anion Gap 17 mmol/L (10-20); BUN (Urea Nitrogen) 12 mg/dL (8.9-20.6); Bilirubin, Total 0.3 mg/dL (0.2-1.2); Calc. Creatinine Clearance 0 mL/min (70-130); Calcium 10.1 mg/dL (7.8-10.44); Carbon Dioxide 22 mmol/L (22-29); Chloride 102 mmol/L (98-107); Estimated GFR 70; Globulin 3.2 g/dL (2.4-3.5); Glucose 351 mg/dL (70-105); Potassium 4.8 mmol/L (3.5-5.1); Protein, Total 7.5 g/dL (6.0-8.3); Sodium 136 mmol/L (136-145)
[2023-06-15] MEDS ORDERED: Morphine 4 MG/ML VIAL ONE (17:27)
== END 2023-06-15 18:20 | disposition home or self-care (01) ==
LOC: ERS 15:45
DX: R10.2 Pelvic and perineal pain (principal); F17.210 Nicotine dependence, cigarettes, uncomplicated; E11.40 Type 2 diabetes mellitus with diabetic neuropathy, unspecified; I10 Essential (primary) hypertension; Z79.84 Long term (current) use of oral hypoglycemic drugs; Z79.899 Other long term (current) drug therapy
CPT/HCPCS: 36415; 74177; 80053; 85025; 96361; 96374; J2270; Q9967

== ENCOUNTER 2023-06-27 10:01 | Emergency (ER) | payer OTHER ==
[2023-06-27] MEDS ORDERED: Bupivacaine 0.25% 10 ML VIAL ONE (10:43)
== END 2023-06-27 11:06 | disposition home or self-care (01) ==
LOC: ERS 10:01
DX: K05.10 Chronic gingivitis, plaque induced (principal); K02.9 Dental caries, unspecified; I10 Essential (primary) hypertension; E78.5 Hyperlipidemia, unspecified; E11.9 Type 2 diabetes mellitus without complications; F17.210 Nicotine dependence, cigarettes, uncomplicated; Z79.899 Other long term (current) drug therapy; Z79.4 Long term (current) use of insulin; Z79.84 Long term (current) use of oral hypoglycemic drugs
CPT/HCPCS: 64400; S0020

== ENCOUNTER 2023-07-27 13:12 | Emergency (ER) | payer OTHER, SELFPAY ==
[2023-07-27] MEDS ORDERED: Cyclobenzaprine 10 MG TAB ONE (14:10)
== END 2023-07-27 15:29 | disposition home or self-care (01) ==
LOC: ERS 13:12
DX: G89.29 Other chronic pain (principal); M54.50 Low back pain, unspecified; E11.9 Type 2 diabetes mellitus without complications; I10 Essential (primary) hypertension; E78.5 Hyperlipidemia, unspecified; F17.210 Nicotine dependence, cigarettes, uncomplicated; Z79.4 Long term (current) use of insulin; Z79.84 Long term (current) use of oral hypoglycemic drugs; Z79.899 Other long term (current) drug therapy
CPT/HCPCS: 72131

== ENCOUNTER 2023-09-04 16:58 | Emergency (ER) | payer OTHER ==
[2023-09-04] MEDS ORDERED: Acetaminophen 500 MG TAB ONE (17:40)
== END 2023-09-04 17:46 | disposition home or self-care (01) ==
LOC: ERS 16:58
DX: M25.561 Pain in right knee (principal); E78.5 Hyperlipidemia, unspecified; I10 Essential (primary) hypertension; E11.40 Type 2 diabetes mellitus with diabetic neuropathy, unspecified
CPT/HCPCS: 99283

== ENCOUNTER 2023-11-04 17:54 | Emergency (ER) | payer OTHER ==
[2023-11-04] MEDS ORDERED: Ibuprofen 800 MG TAB ONE (18:28)
== END 2023-11-04 19:06 | disposition home or self-care (01) ==
LOC: ERS 17:54
DX: M25.561 Pain in right knee (principal); G89.29 Other chronic pain; E78.5 Hyperlipidemia, unspecified; I10 Essential (primary) hypertension; E11.40 Type 2 diabetes mellitus with diabetic neuropathy, unspecified; F17.210 Nicotine dependence, cigarettes, uncomplicated; Z79.84 Long term (current) use of oral hypoglycemic drugs; Z79.4 Long term (current) use of insulin; Z79.899 Other long term (current) drug therapy

== ENCOUNTER 2023-11-19 18:05 | Emergency (ER) | payer OTHER ==
[2023-11-19] MEDS ORDERED: HYDROcodone/Acetaminophen 5/325 mg Tablet ONE (18:45)
[2023-11-19] MEDS ORDERED: HYDROcodone/Acetaminophen 10/325 mg Tablet ONE (18:47)
== END 2023-11-19 19:52 | disposition home or self-care (01) ==
LOC: ERS 18:05
DX: M25.561 Pain in right knee (principal); E11.40 Type 2 diabetes mellitus with diabetic neuropathy, unspecified; I10 Essential (primary) hypertension; E78.5 Hyperlipidemia, unspecified; F17.210 Nicotine dependence, cigarettes, uncomplicated; Z79.84 Long term (current) use of oral hypoglycemic drugs; Z79.4 Long term (current) use of insulin; Z79.899 Other long term (current) drug therapy

== ENCOUNTER 2024-01-04 02:23 | Emergency (ER) | payer OTHER | END 2024-01-04 03:20 | disposition left against medical advice (07) | LOC: ERS 02:23 | DX: Z53.21 Procedure and treatment not carried out due to patient leaving prior to being seen by health care provider (principal) ==

== ENCOUNTER 2024-01-08 10:16 | Emergency (ER) | payer OTHER ==
[2024-01-08] MEDS ORDERED: Ketorolac Tromethamine 30 MG (1 mL) VIAL ONE (11:11)
[2024-01-08] MEDS ORDERED: Magnesium 2 GM/50 ML BAG (IN WATER) ONE (11:11)
[2024-01-08] MEDS ORDERED: diphenhydrAMINE 50 MG/ML VIAL ONE (11:30)
[2024-01-08] MEDS ORDERED: Prochlorperazine 10 MG/2 ML VIAL ONE (11:30)
[2024-01-08] MEDS ORDERED: Sodium Chloride 0.9% 100 ML ONE (11:43)
== END 2024-01-08 12:17 | disposition home or self-care (01) ==
LOC: ERS 10:16
DX: J32.0 Chronic maxillary sinusitis (principal); R29.710 NIHSS score 10
CPT/HCPCS: 70450; 96365; 96375; J0780; J1200; J1885; J3475; J3490

== ENCOUNTER 2024-02-04 02:37 | Emergency (ER) | payer SELFPAY ==
[2024-02-04] MEDS ORDERED: Morphine 4 MG/ML VIAL ONE ×2 (03:04→05:16)
[2024-02-04] MEDS ORDERED: Ondansetron PF 4 MG/2 ML Vial ONE (03:04)
[2024-02-04] MEDS ORDERED: Ketorolac Tromethamine 30 MG (1 mL) VIAL ONE (03:04)
[2024-02-04 03:33] LABS: #Basophils 0.1 thou/uL (0.0-0.2); #Eosinphils 0.4 thou/uL (0.0-0.7); #Monocytes 0.5 thou/uL (0.11-0.59); #Neutrophils 5.1 thou/uL (1.40-6.50); %Basophils 0.5 % (0.0-1.0); %Eosinophils 4.5 % (0.0-10.0); %Monocytes 5.2 % (0.0-10.0); %Neutrophils 54.6 % (42.0-75.0); Hematocrit 43.7 % (42.0-52.0); Hemoglobin 15.2 g/dL (14.0-18.0); Mean Corpuscular HGB CONC 34.8 g/dL (32.0-36.0); Mean Corpuscular Hemoglobin 31.6 pg (27.0-31.0); Mean Corpuscular Volume 90.9 fl (78.0-98.0); Mean Platelet Volume 9.7 fL (7.4-10.4); Platelet Count 316 10x3/uL (130-400); RBC Distribution Width 12.5 % (11.5-14.5); Red Blood Cell (RBC) Count 4.81 mill/uL (4.70-6.10); White Blood Cell (WBC) Count 9.4 10x3/uL (4.8-10.8)
[2024-02-04 03:38] LABS: Bacteria/HPF None Seen HPF (None Seen); Bilirubin Negative (Negative); Blood, Urine Negative (Negative); CAUTI Indications for Culture Pelvic or flank pain; Clarity Clear (Clear); Glucose, Urine (Dipstick) Normal (Negative); Ketone, Urine Negative (Negative); Leukocyte Negative Leu/uL (Negative); Nitrite Negative (Negative); Protein, Urine (Dipstick) Negative (Neg-Trace); RBC/HPF 0-3 HPF (0-3); Specific Gravity, Urine 1.024 (1.002-1.036); Squamous Epithelial None Seen HPF (0-3); Urobilinogen Normal mg/dL (Less than 2); WBC/HPF 0-3 HPF (0-3)
[2024-02-04 03:42] LABS: Urine Culture Reflex No No
[2024-02-04 03:56] LABS: ALT (SGPT) 16 U/L (8-55); AST (SGOT) 12 U/L (5-34); Albumin 4.2 g/dL (3.5-5.0); Alkaline Phosphatase 67 U/L (40-110); Anion Gap 14 mmol/L (10-20); BUN (Urea Nitrogen) 15 mg/dL (8.9-20.6); Bilirubin, Total 0.3 mg/dL (0.2-1.2); Calc. Creatinine Clearance 0 mL/min (70-130); Calcium 9.6 mg/dL (7.8-10.44); Carbon Dioxide 26 mmol/L (22-29); Chloride 104 mmol/L (98-107); Estimated GFR 116; Globulin 2.7 g/dL (2.4-3.5); Glucose 126 mg/dL (70-105); Lipase 14 U/L (8-78); Magnesium 1.7 mg/dL (1.6-2.6); Potassium 3.9 mmol/L (3.5-5.1); Protein, Total 6.9 g/dL (6.0-8.3); Sodium 140 mmol/L (136-145)
== END 2024-02-04 07:20 | disposition home or self-care (01) ==
LOC: ERS 02:37
DX: N20.0 Calculus of kidney (principal); E11.9 Type 2 diabetes mellitus without complications; I10 Essential (primary) hypertension; F17.210 Nicotine dependence, cigarettes, uncomplicated; Z79.84 Long term (current) use of oral hypoglycemic drugs; Z79.4 Long term (current) use of insulin; Z55.6 Problems related to health literacy; Z79.899 Other long term (current) drug therapy
CPT/HCPCS: 36415; 74176; 80053; 81001; 83690; 83735; 85025; 96361; 96374; 96375; 96376; J1885; J2270; J2405

== ENCOUNTER 2024-04-25 18:17 | Emergency (ER) | payer OTHER ==
[2024-04-25] MEDS ORDERED: Ketorolac Tromethamine 30 MG (1 mL) VIAL ONE (19:23)
[2024-04-25] MEDS ORDERED: HYDROcodone/Acetaminophen 5/325 mg Tablet ONE (19:23)
== END 2024-04-25 19:36 | disposition home or self-care (01) ==
LOC: ERS 18:17
DX: M25.561 Pain in right knee (principal); I10 Essential (primary) hypertension; E11.9 Type 2 diabetes mellitus without complications; F17.210 Nicotine dependence, cigarettes, uncomplicated; W01.0XXA Fall on same level from slipping, tripping and stumbling without subsequent striking against object, initial encounter; Y93.89 Activity, other specified; Y92.69 Other specified industrial and construction area as the place of occurrence of the external cause; Z86.73 Personal history of transient ischemic attack (TIA), and cerebral infarction without residual deficits
CPT/HCPCS: J1885

== ENCOUNTER 2024-04-27 04:47 | Emergency (ER) | payer OTHER ==
[2024-04-27] MEDS ORDERED: Cyclobenzaprine 10 MG TAB ONE (05:31)
== END 2024-04-27 05:46 | disposition home or self-care (01) ==
LOC: ERS 04:47
DX: M25.561 Pain in right knee (principal); G89.29 Other chronic pain; I10 Essential (primary) hypertension; E11.9 Type 2 diabetes mellitus without complications; F17.210 Nicotine dependence, cigarettes, uncomplicated; Z55.6 Problems related to health literacy; Z79.84 Long term (current) use of oral hypoglycemic drugs; Z79.899 Other long term (current) drug therapy; Z86.73 Personal history of transient ischemic attack (TIA), and cerebral infarction without residual deficits
CPT/HCPCS: 99283

== ENCOUNTER 2024-06-02 21:30 | Emergency (ER) | payer OTHER ==
[2024-06-02] MEDS ORDERED: Gabapentin 300 MG CAP ONE (23:25)
== END 2024-06-02 23:31 | disposition home or self-care (01) ==
LOC: ERS 21:30
DX: S93.602A Unspecified sprain of left foot, initial encounter (principal); E11.9 Type 2 diabetes mellitus without complications; I10 Essential (primary) hypertension; F17.210 Nicotine dependence, cigarettes, uncomplicated; Z55.6 Problems related to health literacy; Z79.84 Long term (current) use of oral hypoglycemic drugs; Z79.899 Other long term (current) drug therapy; W18.42XA Slipping, tripping and stumbling without falling due to stepping into hole or opening, initial encounter; Y93.01 Activity, walking, marching and hiking

== ENCOUNTER 2024-06-10 00:10 | Emergency (ER) | payer OTHER ==
[2024-06-10] MEDS ORDERED: cloNIDine 0.1 MG TAB ONE (00:47)
[2024-06-10 00:56] LABS: #Basophils 0.03 10x3/uL (0.0-0.2); %Basophils 0.3 % (0.0-1.0); %Eosinophils 0.9 % (0.0-10.0); %Lymphocytes 25.6 % (21.0-51.0); %Monocytes 5.9 % (0.0-10.0); Hematocrit 44.3 % (42.0-52.0); Hemoglobin 15.5 g/dL (14.0-18.0); Mean Corpuscular Hemoglobin 32.1 pg (27.0-31.0); Mean Corpuscular Volume 91.7 fL (78.0-98.0); Mean Platelet Volume 9.6 fL (7.4-10.4); Platelet Count 319 10x3/uL (130-400); RBC Distribution Width 12.3 % (11.5-14.5); Red Blood Cell (RBC) Count 4.83 mill/uL (4.70-6.10)
[2024-06-10 01:10] LABS: ALT (SGPT) 20 U/L (8-55); AST (SGOT) 9 U/L (5-34); Albumin 3.9 g/dL (3.5-5.0); Alkaline Phosphatase 74 U/L (40-110); Anion Gap 17 mmol/L (10-20); BUN (Urea Nitrogen) 11 mg/dL (8.9-20.6); Bilirubin, Total 0.8 mg/dL (0.2-1.2); Calc. Creatinine Clearance 0 mL/min (70-130); Calcium 9.4 mg/dL (7.8-10.44); Carbon Dioxide 21 mmol/L (22-29); Chloride 104 mmol/L (98-107); Estimated GFR 113; Globulin 2.8 g/dL (2.4-3.5); Glucose 218 mg/dL (70-105); Potassium 3.5 mmol/L (3.5-5.1); Protein, Total 6.7 g/dL (6.0-8.3); Sodium 138 mmol/L (136-145)
[2024-06-10 01:16] LABS: Troponin I Less than 0.010 ng/mL (< 0.028)
[2024-06-10] MEDS ORDERED: Acetaminophen 500 MG TAB ONE (03:32)
== END 2024-06-10 03:22 ==
LOC: EEVIPCON 00:10 → ERS 00:10
DX: R07.9 Chest pain, unspecified (principal); F11.23 Opioid dependence with withdrawal; E11.9 Type 2 diabetes mellitus without complications; I10 Essential (primary) hypertension; F17.210 Nicotine dependence, cigarettes, uncomplicated; Z79.84 Long term (current) use of oral hypoglycemic drugs; Z79.899 Other long term (current) drug therapy
CPT/HCPCS: 36415; 71045; 80053; 83880; 84484; 85025; 93005

== ENCOUNTER 2024-11-11 18:33 | Emergency (ER) | payer OTHER ==
[2024-11-11] MEDS ORDERED: Ketorolac Tromethamine 30 MG (1 mL) VIAL ONE (19:36)
== END 2024-11-11 20:08 | disposition home or self-care (01) ==
LOC: ERS 18:33
DX: S62.622A Displaced fracture of middle phalanx of right middle finger, initial encounter for closed fracture (principal); E11.9 Type 2 diabetes mellitus without complications; I10 Essential (primary) hypertension; F17.210 Nicotine dependence, cigarettes, uncomplicated; W23.0XXA Caught, crushed, jammed, or pinched between moving objects, initial encounter
CPT/HCPCS: 96372; 99283; J1885

== ENCOUNTER 2024-11-26 16:23 | Emergency (ER) | payer OTHER, SELFPAY ==
[2024-11-26] MEDS ORDERED: HYDROcodone/Acetaminophen 10/325 mg Tablet ONE (17:41)
== END 2024-11-26 17:50 | disposition home or self-care (01) ==
LOC: ERS 16:23
DX: L02.811 Cutaneous abscess of head [any part, except face] (principal); E11.9 Type 2 diabetes mellitus without complications; I10 Essential (primary) hypertension; F17.210 Nicotine dependence, cigarettes, uncomplicated; Z86.73 Personal history of transient ischemic attack (TIA), and cerebral infarction without residual deficits
CPT/HCPCS: 99282

== ENCOUNTER 2025-07-31 11:54 | Emergency (ER) | payer OTHER, SELFPAY ==
[2025-07-31] MEDS ORDERED: Ketorolac Tromethamine 30 MG (1 mL) VIAL ONE (13:43)
== END 2025-07-31 14:12 | disposition home or self-care (01) ==
LOC: ERS 11:54
DX: M79.672 Pain in left foot (principal); I10 Essential (primary) hypertension; E11.40 Type 2 diabetes mellitus with diabetic neuropathy, unspecified; F17.210 Nicotine dependence, cigarettes, uncomplicated
CPT/HCPCS: J1885

== ENCOUNTER 2025-08-06 21:43 | Emergency (ER) | payer SELFPAY | END 2025-08-06 23:16 | disposition left against medical advice (07) | LOC: ERS 21:43 | DX: Z53.21 Procedure and treatment not carried out due to patient leaving prior to being seen by health care provider (principal) ==

== ENCOUNTER 2025-08-07 14:34 | Emergency (ER) | payer SELFPAY ==
[2025-08-07] MEDS ORDERED: Iopamidol-370 76% 500 ML MDV (1 ML CHARGE) ONE (14:37)
[2025-08-07] MEDS ORDERED: Ketorolac Tromethamine 30 MG (1 mL) VIAL ONE (17:51)
[2025-08-07] MEDS ORDERED: Ondansetron PF 4 MG/2 ML Vial ONE (19:18)
[2025-08-07 20:10] LABS: #Basophils 0.05 10x3/uL (0.0-0.2); #Eosinophils 0.31 10x3/uL (0.0-0.7); #Monocytes 0.57 10x3/uL (0.11-0.59); #Neutrophils 5.33 10x3/uL (1.40-6.50); %Basophils 0.5 % (0.0-1.0); %Eosinophils 3.3 % (0.0-10.0); %Lymphocytes 32.9 % (21.0-51.0); %Monocytes 6.1 % (0.0-10.0); %Neutrophils 56.9 % (42.0-75.0); Hematocrit 42.3 % (42.0-52.0); Hemoglobin 14.4 g/dL (14.0-18.0); Mean Corpuscular Hemoglobin 31.7 pg (27.0-31.0); Mean Corpuscular Volume 93.2 fL (78.0-98.0); Platelet Count 286 10x3/uL (130-400); Red Blood Cell (RBC) Count 4.54 mill/uL (4.70-6.10); White Blood Cell (WBC) Count 9.37 10x3/uL (4.8-10.8)
[2025-08-07 20:37] LABS: ALT (SGPT) 15 U/L (Less than 45); AST (SGOT) 11 U/L (11-34); Albumin 3.5 g/dL (3.1-4.5); Alkaline Phosphatase 85 U/L (40-110); Anion Gap 14 mmol/L (10-20); BUN (Urea Nitrogen) 8 mg/dL (8.9-20.6); Bilirubin, Total 0.1 mg/dL (0.3-1.2); Calc. Creatinine Clearance 0 mL/min (70-130); Calcium 8.5 mg/dL (7.8-10.44); Carbon Dioxide 21 mmol/L (22-29); Chloride 107 mmol/L (98-107); Globulin 2.4 g/dL (2.4-3.5); Glucose 263 mg/dL (70-105); Potassium 3.8 mmol/L (3.5-5.1); Sodium 138 mmol/L (136-145)
[2025-08-07] MEDS ORDERED: Boostrix 0.5 ML (Tdap) VIAL (>/=7 yrs of age) ONE (21:15)
== END 2025-08-07 21:25 | disposition home or self-care (01) ==
LOC: ERS 14:34
DX: L02.214 Cutaneous abscess of groin (principal); E11.9 Type 2 diabetes mellitus without complications; I10 Essential (primary) hypertension; F17.210 Nicotine dependence, cigarettes, uncomplicated
CPT/HCPCS: 10060; 36415; 72193; 80053; 83605; 85025; 87070; 87205; 90471; 90715; 96374; 96375; 96376; J1885; J2405; J3010; J3490; Q9967

== ENCOUNTER 2025-10-29 03:36 | Emergency (ER) | payer SELFPAY | END 2025-10-29 04:59 | disposition home or self-care (01) | LOC: ERS 03:36 | DX: S22.32XA Fracture of one rib, left side, initial encounter for closed fracture (principal); I10 Essential (primary) hypertension; E11.40 Type 2 diabetes mellitus with diabetic neuropathy, unspecified; F17.210 Nicotine dependence, cigarettes, uncomplicated; X58.XXXA Exposure to other specified factors, initial encounter | CPT/HCPCS: 71045; 96372 ==

== ENCOUNTER 2025-11-12 11:52 | Emergency (ER) | payer SELFPAY ==
[2025-11-12] MEDS ORDERED: Iopamidol-370 76% 500 ML MDV (1 ML CHARGE) ONE (13:26)
[2025-11-12] MEDS ORDERED: Ketorolac Tromethamine 30 MG (1 mL) VIAL ONE (14:31)
[2025-11-12] MEDS ORDERED: Acetaminophen 500 MG TAB ONE (14:31)
[2025-11-12 14:38] LABS: #Basophils 0.03 10x3/uL (0.0-0.2); #Eosinophils 0.13 10x3/uL (0.0-0.7); #Monocytes 0.40 10x3/uL (0.11-0.59); #Neutrophils 7.36 10x3/uL (1.40-6.50); %Basophils 0.3 % (0.0-1.0); %Eosinophils 1.4 % (0.0-10.0); %Lymphocytes 15.5 % (21.0-51.0); %Monocytes 4.2 % (0.0-10.0); %Neutrophils 78.2 % (42.0-75.0); Hematocrit 46.4 % (42.0-52.0); Hemoglobin 16.4 g/dL (14.0-18.0); Mean Corpuscular Hemoglobin 31.6 pg (27.0-31.0); Mean Corpuscular Volume 89.4 fL (78.0-98.0); Platelet Count 270 10x3/uL (130-400); Red Blood Cell (RBC) Count 5.19 mill/uL (4.70-6.10); White Blood Cell (WBC) Count 9.42 10x3/uL (4.8-10.8)
[2025-11-12 14:57] LABS: ALT (SGPT) 18 U/L (Less than 45); AST (SGOT) 19 U/L (11-34); Albumin 3.7 g/dL (3.1-4.5); Alkaline Phosphatase 96 U/L (40-110); Anion Gap 16 mmol/L (10-20); BUN (Urea Nitrogen) 7 mg/dL (8.9-20.6); Bilirubin, Total 0.6 mg/dL (0.3-1.2); Calc. Creatinine Clearance 0 mL/min (70-130); Calcium 8.7 mg/dL (7.8-10.44); Carbon Dioxide 22 mmol/L (22-29); Chloride 100 mmol/L (98-107); Globulin 2.8 g/dL (2.4-3.5); Glucose 376 mg/dL (70-105); Potassium 4.5 mmol/L (3.5-5.1); Sodium 133 mmol/L (136-145)
== END 2025-11-12 17:29 | disposition home or self-care (01) ==
LOC: ERS 11:52
DX: J18.9 Pneumonia, unspecified organism (principal); E11.65 Type 2 diabetes mellitus with hyperglycemia; I10 Essential (primary) hypertension; E11.40 Type 2 diabetes mellitus with diabetic neuropathy, unspecified; F17.210 Nicotine dependence, cigarettes, uncomplicated
CPT/HCPCS: 71045; 71275; 80053; 83880; 84484; 85025; 85379; 87428; 93005; 96374; J1885; Q9967